=== PATIENT | female | born 1975 | race Caucasian/White ===

== ENCOUNTER 2019-05-16 08:24 | Outpatient (CLI) | payer BC, MEDICAID, SELFPAY ==
--- NOTE | 2019-05-16 11:40 | DI.MRI_ITS ---
EXAM: MR LOWER JOINT RT WO CLINICAL HISTORY: TRAUMATIC DISLOCATION OF RT JOSE S83.004A. TECHNIQUE: Multiplanar multisequence MRI was performed. COMPARISON: CR KNEE R 3V from 05/02/2019 from [facility] FINDINGS: A large joint effusion is seen. No fracture or bone contusion is seen. The cruciate ligaments, me dial collateral ligament, extensor mechanism and patellar retinacula appear intact. There is tear of the lateral meniscus. The posterior horn is flipped anterior to the anterior horn, consistent with a bucket-handle type tear. There is edema around the lateral collateral ligaments but no evidence o f a focal tear. The medial meniscus shows horizontal, linear increased signal in the posterior horn. There is cartilage thinning over the medial femoral condyle and patellar apex. There is a small fo donovan cartilage defect at the lateral femoral condyle which extends down to bone. IMPRESSION: Bucket-handle type tear of the lateral meniscus with posterior horn flipped anteriorly. Horizontal t ear of the posterior horn of the medial meniscus. Lateral collateral ligament sprain.
== END 2019-05-16 08:44 ==
PROVIDERS: PCP Family Medicine; Visit Provider Physician Assistant
DX: S83.251A Bucket-handle tear of lateral meniscus, current injury, right knee, initial encounter (principal); S83.241A Other tear of medial meniscus, current injury, right knee, initial encounter; S83.421A Sprain of lateral collateral ligament of right knee, initial encounter; S83.004A Unspecified dislocation of right patella, initial encounter
CPT/HCPCS: 73721

== ENCOUNTER 2020-02-03 23:12 | Outpatient (CLI) | payer BC, MEDICAID, SELFPAY ==
--- NOTE | 2020-02-03 10:32 | DI.RAD_ITS ---
EXAM: XR ANKLE RT COMPLETE CLINICAL HISTORY: right ankle pain M25.7-571 PAIN RT ANKLE AND JOINTS OF RT FOOT TECHNIQUE: COMPARISON: No exams were available for comparison FINDINGS: Three views were obtained. The ankle mortise appears well maintained. No bony or soft tissue abnorm ality seen apart from minimal degenerative changes of the joints of the. IMPRESSION: RADIATION DOSE DELIVERED: Total DLP
== END 2020-02-03 23:32 ==
PROVIDERS: Visit Provider Nurse Practitioner Family
DX: M25.571 Pain in right ankle and joints of right foot (principal)
CPT/HCPCS: 73610

== ENCOUNTER 2020-04-07 03:42 | Outpatient (CLI) | payer BC, MEDICAID, SELFPAY ==
[2020-04-07 15:41] LABS: ALT 24 U/L (14-59); AST 16 U/L (15-37); Alkaline Phosphatase 82 U/L (46-116); Anion Gap 10.6 mmol/L (3-11); BUN 13 mg/dL (7-18); Bilirubin, Total 0.4 mg/dL (0.2-1.0); CO2 27.4 mmol/L (21.0-32.0); CREATININE 0.91 mg/dL (0.55-1.02); Calcium 9.5 mg/dL (8.5-10.1); Chloride 101 mmol/L (98-107); Glucose 87 mg/dL (74-106); Potassium 4.2 mmol/L (3.5-5.1); Sodium 139 mmol/L (136-145); Total Protein 7.9 g/dL (6.4-8.2)
== END 2020-04-07 04:02 ==
DX: Z00.00 Encounter for general adult medical examination without abnormal findings (principal)
CPT/HCPCS: 36415; 80053

== ENCOUNTER 2020-10-22 09:20 | Outpatient (CLI) | payer BC, MEDICAID, SELFPAY ==
--- NOTE | 2020-10-22 09:00 | DI.RAD_ITS ---
Exam(s) XR KNEE RT 4V AP,LAT,[place],PAT EXAM: XR KNEE RT 4V AP,LAT,[place],PAT CLINICAL HISTORY: RIGHT KNEE PAIN. TECHNIQUE: 2D digital imaging was performed. COMPARISON: CR CR KNEE R 3V from 05/02/2019 CR CR KNEE R 3V from 05/02/2019 MR MR LOWER JOINT RT WO from 05/16/2019 MR MR LOWER JOINT RT WO from 05/16/2019 CR XR ANKLE RT COMPLETE from 02/03/2020 CR XR ANKLE RT COMPLETE from 02/03/2020 FINDINGS: BONES: No acute fracture is present. No bony destructive lesion is seen. The bones appear osteopenic . There is a lucency in the lateral femoral condyle which could represent an osteochondral defect ve rsus degenerative subchondral cyst. JOINTS: There is moderate to severe narrowing of both medial and lateral femoral tibial joints. This has significantly progressed when compared with the previous exam. There is also moderate narrowing of the patellofemoral joint which shows lateral spurring and lateral subluxation.. A joint effusion is seen. IMPRESSION: Moderate to severe degenerative changes of both femoral tibial joints with progression compared with the previous exam. Question of an osteochondral defect versus degenerative subchondral cysts of the lateral femoral condyle. DATA REPOSITORY: RADIATION DOSE DELIVERED:
== END 2020-10-22 09:21 | disposition home or self-care (01) ==
PROVIDERS: Visit Provider Student in an Organized Health Care Education/Training Program
DX: M17.11 Unilateral primary osteoarthritis, right knee (principal)
CPT/HCPCS: 73564

== ENCOUNTER 2020-10-22 11:33 | Outpatient (REF) | payer BC, MEDICAID, SELFPAY ==
[2020-10-22 12:25] LABS: Clarity Cloudy; Mononuclear Cells 16 %; Nucleated Cells 41970 uL (0); Polynuclear Cells 84 %
== END 2020-10-22 11:34 | disposition home or self-care (01) ==
LOC: LBN 11:33
PROVIDERS: Visit Provider Student in an Organized Health Care Education/Training Program
DX: M25.461 Effusion, right knee (principal); M25.561 Pain in right knee; M17.11 Unilateral primary osteoarthritis, right knee
CPT/HCPCS: 87070; 87205; 89051

== ENCOUNTER 2020-11-10 14:41 | Outpatient (CLI) | payer BC, MEDICAID, SELFPAY ==
--- NOTE | 2020-11-10 13:32 | DI.MRI_ITS ---
Exam(s) MR LOWER JOINT RT WO EXAM: MR LOWER JOINT RT WO CLINICAL HISTORY: m25.569 R knee pain and m25.461 effusion,?osteonecrosis of knee TECHNIQUE: Multiplanar multisequence MRI of the knee was performed. COMPARISON: MR MR LOWER JOINT RT WO from 05/16/2019 MR MR LOWER JOINT RT WO from 05/16/2019. There has apparently been interval surgery. Recent x-rays 6 turning 521 reviewed FINDINGS: EFFUSION: There is a moderate-large joint effusion with prominent abnormal synovial thickening consis tent with diffuse synovitis, significantly increased from the prior MRI scan of April 2019. There is no prominent Kumar's cyst in the popliteal fossa. There is a lymph node in the popliteal fossa wh ich measures 1.6 by 0.6 cm. Probably reactive. MARROW:There no fracture lines but there is prominent subarticular bone edema in both medial lateral femoral condyles as well as in medial and lateral aspect of the tibial plateau. There is also bone e emi in the patella. There is sparing of the fibular head and neck. PATELLOFEMORAL COMPARTMENT: The quadriceps tendon is intact. The patellar ligament is intact. There is a high-grade thinning of the retropatellar cartilage which has further progressed from the p rior study of April 2019. There is a small focus of subarticular signal abnormality in the posteri or patella over the lateral facet. No unstable osteochondral defect at this level. Thereis partial tearing of the lateral patellar retinaculum adjacent to the patella, not previously present. CRUCIATE LIGAMENTS: The anterior cruciate ligament is intact.The posterior cruciate ligament is intac t. MEDIAL COMPARTMENT/MEDIAL MENISCUS: Complex tear of the body-posterior horn of the medial meniscus. There is outward extrusion of the medial meniscus now evident.. There is diffuse high-grade cartilage loss over the entire medial femoral condyle.There is subarticul ar edema throughout the medial femoral condyle and area of subarticular signal abnormality measuring 1.5 cm wide by 2 cm AP by 0.6 cm deep suspicious for developing osteochondral defect-osteo necrosis. MEDIAL COLLATERAL LIGAMENT: Fluid signal is evident along the MCL consistent with sprain but no high- grade tear of this structure evident. LATERAL COMPARTMENT/LATERAL MENISCUS: Complex tear of the lateral meniscus involving both anterior an d posterior horns none also with some extrusion outwards.There is high-grade cartilage loss over the lateral femoral condyle in tire articular surface. Abundant subarticular edema in the lateral femora l condyle. There is a prominent area of subarticular signal abnormality the weight-bearing surface o f the lateral femoral condyle measuring 1.5 cm wide by 2 cm AP x 1.5 cm deep consistent with developi ng osteochondral defect. LATERAL COLLATERAL LIGAMENT COMPLEX: The fibular collateral ligament is intact. The biceps femoris t endon is intact.There is abnormal signal in the partially visualized popliteus muscle. Mild fluid in its tendon sheath. No tendon tear. OTHER: There is a sliver of fluid anterior to the patella-probable mild bursitis. IMPRESSION: 1. Compared to the prior knee MRI April 2019 there has been significant deterioration. 2. There is now severe synovitis throughout the knee joint and severe tricompartmental cartilage loss with prominent subjacent marrow edema. Also subarticular areas in both femoral condyles consistent with developing osteonecrosis. 3. Attenuation and complex tearing of both medial and lateral menisci. 4. Sprain signal along the MCL but no high-grade MCL tear. 5. Increased abnormal signal in the popliteus muscle but no high-grade tear of its tendon and the ot her components of the lateral collateral ligament complex are intact. 6. The anterior and posterior cruciate ligaments are intact. DATA REPOSITORY:
--- NOTE | 2020-11-10 14:47 | DI.VRAD_ITS ---
PROCEDURE INFORMATION: Exam: MR Right Lower Extremity Joint Without Contrast, Knee Exam date and time: 11/10/2020 1:27 PM Age: 45 years old Clinical indication: Swelling or effusion of joint; Prior surgery; Surgery date: 6+ months; Surgery type: Surgery of right knee may 2019, mri comparison pre surgery from April 2019. ; Patient HX: Pain since surgery, swelling and severe pain, worsening pain in joint. Difficulty bearing weight. TECHNIQUE: Imaging protocol: MR of the Right lower extremity joint without contrast. Exam focused on the knee. COMPARISON: CR XR KNEE RT 4V AP,LAT,GEORGIA,PAT 10/22/2020 9:28 AM FINDINGS: Bones and cartilage: Tricompartment high-grade chondromalacia. Subjacent marrow edema in the medial and lateral compartments. Cortical irregularity of the posterior weight-bearing surface of the lateral femoral condyle. Heterogeneous thickening and increased T2 signal of the lateral patellar retinaculum near its attachment to the patella, consistent with chronic partial tearing. Joint spaces: Right knee effusion with bulky synovial thickening, consistent with synovitis and joint debris. Medial meniscus: Complex tearing with fragmentation of the body and posterior horn of the medial meniscus. Body of the medial meniscus is peripherally extruded. Lateral meniscus: Complex tearing with fragmentation of the body and posterior horn of the lateral meniscus. Anterior cruciate ligament: Unremarkable. No tear. Posterior cruciate ligament: Unremarkable. No tear. Medial capsule and supporting structures: Mild edema along the deep and superficial fibers of the medial collateral ligament consistent with low-grade MCL sprain. Lateral capsule and supporting structures: Unremarkable. No tear. Extensor mechanism of knee: Unremarkable. No tear. Muscles: Popliteus muscle edema consistent with muscle strain Soft tissues: Sliver of fluid anterior to the patella with prepatellar subcutaneous edema and edema anterior to the patellar tendon. Findings are consistent with slight prepatellar bursitis. Tiny popliteal cyst. Prominent lymph node in the popliteal fossa measuring approximately 1.8 cm, consistent with reactive lymphadenopathy. IMPRESSION: 1. Bulky synovial thickening with a moderate effusion and large amount of joint debris, consistent with severe synovitis 2. Complex tearing of the body and posterior horns of the medial and lateral menisci 3. Tricompartment high-grade chondromalacia with subjacent marrow edema 4. Low-grade MCL sprain 5. Slight prepatellar bursitis 6. Low-grade partial tearing lateral patellar retinaculum Dictated and Authenticated by: Cindy Garza MD. Ordering:ZAHRA Jones MD
== END 2020-11-10 15:01 ==
PROVIDERS: Visit Provider Student in an Organized Health Care Education/Training Program
DX: M25.461 Effusion, right knee (principal); S83.271A Complex tear of lateral meniscus, current injury, right knee, initial encounter; S83.231A Complex tear of medial meniscus, current injury, right knee, initial encounter; S83.411A Sprain of medial collateral ligament of right knee, initial encounter; M70.41 Prepatellar bursitis, right knee; S76.111A Strain of right quadriceps muscle, fascia and tendon, initial encounter; X58.XXXA Exposure to other specified factors, initial encounter
CPT/HCPCS: 73721

== ENCOUNTER 2020-11-22 01:52 | Outpatient (CLI) | payer BC, MEDICAID, SELFPAY ==
[2020-11-22 11:22] LABS: Source Nasal/Nares
[2020-11-22 16:06] LABS: COVID-19 PCR Negative (Negative)
== END 2020-11-22 01:53 | disposition home or self-care (01) ==
LOC: LBO 01:52
PROVIDERS: Visit Provider Student in an Organized Health Care Education/Training Program
DX: Z20.822 Contact with and (suspected) exposure to COVID-19 (principal); Z01.818 Encounter for other preprocedural examination
CPT/HCPCS: 87635

== ENCOUNTER 2020-11-23 10:48 | Day surgery (SDC) | payer BC, MEDICAID, SELFPAY ==
[2020-11-23] VITALS (9 sets, daily range): BP systolic 95–136; BP diastolic 41–74; PULSE 48–69; RESP 12–18; TEMP 36–36.7; O2SAT 96–100; BMI 32.6
[2020-11-23] MEDS: Celecoxib 200 MG CAP 400 MG PO (11:36)
[2020-11-23] MEDS: Gabapentin 300 MG CAP PO (11:36)
[2020-11-23] MEDS: Acetaminophen 500 MG TAB 1000 MG PO (11:36)
--- NOTE | 2020-11-23 11:54 | W.ANESPRE ---
General Info Date of Service Date Performed: 11/23/20 Height: 5 ft 8 in Weight: 97.5 kg Body Mass Index (BMI): 32.6 Surgical Procedure: Operation Date: 11/23/20 12:55 Proposed Procedures Side Surgeon p Knee Arthroscopy rt with synovectomy and debridement, synovial biopsy Right Robert Blake MD Meds Allergies and Home Medications Allergies Allergy/AdvReac Type Severity Reaction Status Date / Time Penicillins Allergy Severe Anaphylaxis Verified 11/23/20 11:15 gluten Allergy Intermediate Rash Verified 11/23/20 11:15 Seasonal Allergy Intermediate Uncoded 11/23/20 11:15 Home Medication Medication Instructions Recorded baclofen 10 mg tablet 10 mg PO QHS PRN #20 tab 03/03/20 acetaminophen 500 mg tablet 500 mg PO Q6H PRN 10/22/20 ibuprofen 200 mg tablet 200 mg PO Q6H PRN 10/22/20 turmeric 400 mg capsule 400 mg PO DAILY 10/22/20 Current Visit Medications: Current Medications Generic Name Dose Route Start Last Admin Trade Name Freq PRN Reason Stop Dose Admin Acetaminophen 1,000 mg 11/23/20 06:00 11/23/20 11:36 Acetaminophen 500 Mg Tab PO 11/23/20 16:00 1,000 mg PREOP KEYLA Administration Celecoxib 400 mg 11/23/20 06:00 11/23/20 11:36 Celecoxib 200 Mg Cap PO 11/23/20 16:00 400 mg PREOP KEYLA Administration Gabapentin 300 mg 11/23/20 06:00 11/23/20 11:36 Gabapentin 300 Mg Cap PO 11/23/20 16:00 300 mg PREOP KEYLA Administration Ringer's Solution 1,000 mls @ 80 mls/hr 11/23/20 06:00 IV 12/22/20 23:59 INFUSION KEYLA Clindamycin Phosphate/Dextrose 900 mg in 50 mls @ 50 mls/hr 11/23/20 06:00 Cleocin In D5w IVPB 11/23/20 16:00 PREOP KEYLA IV Miscellaneous Supplies 1 each 11/23/20 06:00 Iv Access IV 12/22/20 23:59 DIRECTED KEYLA Sodium Chloride 0 ml 11/23/20 06:00 Normal Saline Flush 10 Ml Syr IV 12/22/20 23:59 PRN PRN Sodium Chloride 0 ml 11/23/20 06:00 Normal Saline 10 Ml Vial IJ 12/22/20 23:59 DIRECTED PRN Sterile Water 0 ml 11/23/20 06:00 Water,Injection,Sterile 10 Ml Vial IJ 12/22/20 23:59 DIRECTED PRN PFSH Active Problems Active Problems: Problem Status Onset Code Effusion, right knee M25.461 Arthritis of right knee M17.11 Knee pain M25.569 Annual physical exam Z00.00 Increased body mass index (BMI) R63.8 Right ankle tendonitis M77.51 Medical History Medical History Annual physical exam Increased body mass index (BMI) Knee pain Right ankle tendonitis Surgical History Surgical History History of knee replacement History of surgical procedure on mouth tongue surgery History of tubal ligation Tobacco Smoking/Tobacco Use Status: Current every day Tobacco Type: cigarettes Alcohol Alcohol Intake: current (Holidays) Alcohol intake frequency: holidays/special occasions only Substance Use Substance use: Rarely Vital Signs and Lab Results Vital Signs Most Recent Vital Signs in EMR: Most Recent Vital Signs Temp Pulse Resp BP Pulse Ox 36.7 C 59 L 18 114/67 98 11/23/20 11:18 11/23/20 11:18 11/23/20 11:18 11/23/20 11:18 11/23/20 11:18 Lab Results Blood Type / Crossmatch: No Data to Display Complete Blood Count: No Data to Display Complete Metabolic Panel: No Data to Display Liver Function Panel: No Data to Display Coagulation Panel: No Data to Display Cardiac Panel: No Data to Display Arterial Blood Gas: No Data to Display Venous Blood Gas: No Data to Display Pancreas Panel: No Data to Display Thyroid Panel: No Data to Display Infectious Disease: Coronavirus (COVID-19)(PCR) Negative (Negative) 11/22/20 08:46 11/22/20 Coronavirus 2019 Source Nasal/Nares 11/22/20 08:46 11/22/20 Blood Cultures: No Data to Display Toxicology Panel: No Data to Display Panel: No Data to Display Anesthesia Assessment and Plan Anesthesia History Personal History: No History of Anesthesia Complications Family History: No Family History of Anesthesia Complications and Other Exercise Tolerance Exercise Tolerance: Metabolic Equivalents>4 Pertinent Negatives Pertinent Negatives: No Symptoms of GERD, No Major Cardiovascular Symptoms or Complaints, No Major Pulmonary Symptoms or Complaints and No History of CVA/TIA Cardiac & Pulmonary Exam Cardiac Exam: Normal S1/S2 Heart Sounds Pulmonary Exam: Clear Bilateral Breath Sounds Cardiac and Pulmonary Comment:: SMOKER /-1/2 ppd Airway Exam Known Difficult Airway: No Mallampati Class: 2 Mouth Opening: Normal (> 3cm) Thyromental Distance: Greater than 3 cm Neck Range of Motion: Full ROM Neck Circumference: Thick Teeth Condition: Normal Dentition and Removable Dentures/Plates Upper Airway Comments: Multiple teeth repaired, upper plate including #20, and#19 ASA Classification ASA Score: ASA 2 Emergency Case?: No NPO Status NPO Status: NPO Clears >2 hours, Solids >8 hours Status Status: Not Relevant due to Medical History Anesthesia Plan Resuscitation Status: Full Code Anesthesia Technique: General Anesthesia Airway Planned: LMA Monitors Used: Standard Monitors
[2020-11-23] MEDS: Lactated Ringers 1,000 ML 80 ML IV (11:55)
--- NOTE | 2020-11-23 12:41 | W.PREOPHP ---
Documented by User: ROHITH Houser 11/23/20 12:43 Date of service: 11/23/20 Assessment and Plan Assessment and plan (1) Effusion, right knee: Status: Acute Assessment and plan: Right knee arthroscopy. Details of surgery were discussed with patient as well as risks and pertinent anatomy. All questions were answered. Pertinent Surgical Information Patient denies history of hypertension, CVA, IA, angina, asthma, COPD, renal or liver disorders, hepatitis, bleeding disorders, diabetes, immune or thyroid disorders. No complications from anesthesia. Review of Systems Constitutional Constitutional: Denies fever(s) ENT Ears, Nose, Mouth, and Throat: Denies dizziness and Denies sore throat Cardiovascular Cardiovascular: Denies chest pain, Denies palpitations and Denies dyspnea Respiratory Respiratory: Denies cough and Denies dyspnea Gastrointestinal Gastrointestinal: Denies abdominal pain, Denies melena, Denies hematochezia, Denies diarrhea, Denies nausea and Denies vomiting Genitourinary Genitourinary: Denies hematuria and Denies dysuria Neurologic Neurologic: Denies dizziness Endocrine Endocrine: Denies palpitations [facility] Medical History Annual physical exam Increased body mass index (BMI) Knee pain Right ankle tendonitis Surgical History History of knee replacement History of surgical procedure on mouth tongue surgery History of tubal ligation Social History Smoking/Tobacco Use Status: Current every day Tobacco Type: cigarettes Smoking risk assessment performed?: Yes Alcohol Intake: current (Holidays) Alcohol Intake frequency: holidays/special occasions only Drug use: Rarely Current gender identity: female Do you feel safe at home: Yes Do you feel safe in your relationship?: Yes Meds Allergies and Home Medications Allergies Allergy/AdvReac Type Severity Reaction Status Date / Time Penicillins Allergy Severe Anaphylaxis Verified 11/23/20 11:15 gluten Allergy Intermediate Rash Verified 11/23/20 11:15 Seasonal Allergy Intermediate Uncoded 11/23/20 11:15 Home Medications Medication Instructions Recorded Confirmed Type baclofen 10 mg tablet 10 mg PO QHS PRN #20 tab 03/03/20 11/23/20 Rx turmeric 400 mg capsule 400 mg PO DAILY 10/22/20 11/23/20 History acetaminophen 1,000 mg PO Q8H PRN PRN #90 cap 11/23/20 Rx ibuprofen 600 mg PO TID PRN #30 tab 11/23/20 Rx Exam Const General: cooperative and no acute distress Orientation: alert and awake [facility] Head: normocephalic and atraumatic Eyes Conjunctivae: conjunctivae normal Sclera: sclerae normal Resp Effort & Inspection: normal respiratory effort Auscultation: clear to auscultation bilaterally and no wheezes Cardio Rate: regular rate Rhythm: regular rhythm Heart Sounds: S1 normal, S2 normal and no murmurs Results Last Vital Signs Temp 98.1 F 11/23/20 11:18 Pulse 59 L 11/23/20 11:18 Resp 18 11/23/20 11:18 BP 114/67 11/23/20 11:18 Pulse Ox 98 11/23/20 11:18 Documented by User: Robert Blake MD 11/23/20 13:22 Assessment and Plan Assessment and plan (1) Inflammation of joint of right knee: Status: Acute Assessment and plan: Aicha is a 45-year-old who is status post right knee arthroscopy with persistent pain, limited motion, and inflammatory changes throughout the knee with interval destruction of the cartilage surfaces. I am quite concerned about an indolent infection. Her cell count was notably elevated although did not have growth in the culture. The MRI shows extensive cartilage degeneration since the previous MRI 1 year ago with dense inflammatory changes throughout the knee which is concerning for an inflammatory or infectious process. Therefore, I recommended that we proceed with knee arthroscopy for synovectomy and biopsy. I would take fluid and tissue samples to send to the lab for further analysis as well as for Synovasure comprehensive analysis to rule out any infection. At the time of the arthroscopy we can debride and debulk some of the inflammation within the knee. Ultimately, knee replacement will be the next step given the cartilage wasting seen on the MRI. However, there is important that we fully rule out any infectious process within the knee. I reviewed the risk of the procedure to include bleeding, infection, pain, stiffness, damage to nerves and vessels, damage to muscles and tendons, continued symptoms, need for repeat procedures. Despite these risks, she elects to proceed. History of Present Illness History of Present Illness Chief Complaint: Right Knee Inflammatory Arthritis Narrative: Aicha is a 45-year-old female who I saw previously in the office. Please reference that office note for complete details of her clinical history. In short, she underwent a knee arthroscopy with meniscal intervention with Dr. Martínez at the [facility]. She had some initial improvements but they were short-lived as she developed significant pain and swelling and limited motion. When I saw her in the office she had a diffusely swollen knee which was painful to almost all range of motion with notable restriction of motion and difficulty with weightbearing. Aspiration at the time did show an elevated white cell count within the knee but no culture growth. MRI confirmed significant inflammatory disease throughout the knee with interval destruction of the cartilage surfaces of the knee joint in all 3 compartments. She continues have pain and disability about the right knee with notable swelling and restricted motion. She denies any fevers or chills. She denies any sick contacts. She has no chest pain or shortness of breath. [facility] Medical History Annual physical exam Increased body mass index (BMI) Knee pain Right ankle tendonitis Surgical History History of knee replacement History of surgical procedure on mouth tongue surgery History of tubal ligation Social History Smoking/Tobacco Use Status: Current every day Tobacco Type: cigarettes Smoking risk assessment performed?: Yes Alcohol Intake: current (Holidays) Alcohol Intake frequency: holidays/special occasions only Drug use: Rarely Current gender identity: female Do you feel safe at home: Yes Do you feel safe in your relationship?: Yes Meds Allergies and Home Medications Allergies Allergy/AdvReac Type Severity Reaction Status Date / Time Penicillins Allergy Severe Anaphylaxis Verified 11/23/20 11:15 gluten Allergy Intermediate Rash Verified 11/23/20 11:15 Seasonal Allergy Intermediate Uncoded 11/23/20 11:15 Home Medications Medication Instructions Recorded Confirmed Type baclofen 10 mg tablet 10 mg PO QHS PRN #20 tab 03/03/20 11/23/20 Rx turmeric 400 mg capsule 400 mg PO DAILY 10/22/20 11/23/20 History acetaminophen 1,000 mg PO Q8H PRN PRN #90 cap 11/23/20 Rx ibuprofen 600 mg PO TID PRN #30 tab 11/23/20 Rx
--- NOTE | 2020-11-23 12:53 | W.PM.DSUDISC ---
Documented by User: ROHITH Houser 11/23/20 12:56 Discharge Plan Disposition Patient Disposition: HOME Condition: Good Discharge Details Reason For Visit: Right Knee Arthroscopy Attending Provider: Robert Blake Primary Care Provider: Adelita Munguia Home Meds and New Rx's Prescriptions: New acetaminophen 500 mg capsule 1,000 mg PO Q8H PRN PRNQty: 90 RF: 0 ibuprofen 600 mg tablet 600 mg PO TID PRN (Reason: pain) Qty: 30 RF: 0 Continued baclofen 10 mg tablet 10 mg PO QHS PRN (Reason: muscle spasm) Qty: 20 RF: 0 turmeric 400 mg capsule 400 mg PO DAILY RF: 0 Discontinued acetaminophen [Tylenol Extra Strength] 500 mg tablet 500 mg PO Q6H PRNRF: 0 ibuprofen 200 mg tablet 200 mg PO Q6H PRNRF: 0 Discharge Instructions Stand Alone Forms: Lou Knee Arthroscopy Referrals: Robert Blake MD [ [facility] STAFF PHYSICIAN] - 11/29/20 2:30 pm Equipment/Supplies: Partial Weight Bearing Crutches Activity:: Activity as Tolerated Remove Dressings/Wound Care:: 72 hours Shower/Bathe:: 72 hours Diet:: As Tolerated Discharge Orders Discharge Orders: Discharge Order (Routine); Ordered 11/23/20 Ordered By: Andrew Krause DS: Diagnosis Discharge Diagnosis (1) Effusion, right knee: Status: Acute Documented by User: Robert Blake MD 11/23/20 14:52 Discharge Plan Disposition Patient Disposition: HOME Condition: Good Discharge Details Reason For Visit: Right Knee Arthroscopy Attending Provider: Robert Blake Primary Care Provider: Adelita Munguia Home Meds and New Rx's Prescriptions: New acetaminophen 500 mg capsule 1,000 mg PO Q8H PRN PRNQty: 90 RF: 0 ibuprofen 600 mg tablet 600 mg PO TID PRN (Reason: pain) Qty: 30 RF: 0 Continued baclofen 10 mg tablet 10 mg PO QHS PRN (Reason: muscle spasm) Qty: 20 RF: 0 turmeric 400 mg capsule 400 mg PO DAILY RF: 0 Discontinued acetaminophen [Tylenol Extra Strength] 500 mg tablet 500 mg PO Q6H PRNRF: 0 ibuprofen 200 mg tablet 200 mg PO Q6H PRNRF: 0 Discharge Instructions Stand Alone Forms: Lou Knee Arthroscopy Referrals: Robert Blake MD [ [facility] STAFF PHYSICIAN] - 11/29/20 2:30 pm Equipment/Supplies: Partial Weight Bearing Crutches Activity:: Activity as Tolerated Remove Dressings/Wound Care:: 72 hours Shower/Bathe:: 72 hours Diet:: As Tolerated Discharge Orders Discharge Orders: Discharge Order (Routine); Ordered 11/23/20 Ordered By: Andrew Krause
[2020-11-23] MEDS: CLINDAMYCIN 900 MG/50 ML BAG 50 MG IVPB (13:36)
--- NOTE | 2020-11-23 14:05 | SYNOVIUM_PTH ---
PATIENT: Aicha Perez LOC: [facility] U#:[id number] AGE/SX: 45/F ROOM: RE11/23/[address]: Robert Blake MD : 1975 BED: DIS: 11/23/2020 SPEC #: [id number] RECD: 11/23/20 17:03 STATUS: CORNELIO SHEPPARD #: [id number] FAUZIA: 11/23/20 14:[address]: Robert Blake DEPT: Surgical Specimen RECD BY: Adela Cisneros ENTERED: 11/23/20 17:04 SP TYPE: SYNOVIUM OTHR DR: Adelita Munguia APRN Tissues: 1 - SYNOVIUM/IAL Procedures: GROSS AND MICRO LEVEL 4 Comments: [id number]
[2020-11-23] MEDS: Bupivacaine 0.5% Pres-Free 30 ML VIAL (14:25)
[2020-11-23] MEDS: fentaNYL 100 MCG/2 ML VIAL IVP (14:59)
[2020-11-23] MEDS: Normal Saline Flush 10 ML SYR IV (15:01)
[2020-11-23] MEDS: Ketorolac 30 MG/ML VIAL 15 MG IVP (15:15)
--- NOTE | 2020-11-23 16:09 | W.ANESPOSTOP ---
Postoperative Evaluation Date, Time and Location Date Performed: 11/23/20 Time Performed: 16:09 Patient Location: Day Surgery Unit Vital Signs Most Recent Imported Vital Signs: Most Recent Vital Signs Temp Pulse Resp BP Pulse Ox 36.2 C L 57 L 15 135/64 99 11/23/20 15:30 11/23/20 15:30 11/23/20 15:30 11/23/20 15:30 11/23/20 15:30 Pain Score Most Recent Pain Score: Most Recent Pain Score Pain Level 2 11/23/20 15:30 Assessment Mental Status: Awake (Alert & Oriented to Patient Baseline) Airway and Respiratory Function: Patent airway with normal (patient baseline) respiratory exam Cardiovascular Function: Hemodynamically Stable Hydration Status: Adequately Hydrated Nausea & Vomiting: No Nausea or Vomiting Pain: Pt. Denies Any Pain Peripheral Nerve Block: Patient did not receive a nerve block
--- NOTE | 2020-11-23 20:14 | W.PM.OP ---
Date of service: 11/23/20 Time of Service: 14:39 Operative Note Operative Note DATE OF PROCEDURE: 11/23/20 PRE-OP DIAGNOSIS: Right knee inflammatory disease POST-OP DIAGNOSIS: same PROCEDURE: Right knee arthroscopic synovectomy of 3 compartments with synovial biopsy SURGEON: Robert Blake ANESTHESIA TYPE: General LMA/ETT Refer to Anesthesia Record ESTIMATED BLOOD LOSS: 5 PATHOLOGY: none sent TOURNIQUET TIME: 0 COMPLICATIONS: None Patient was transported to: PACU Patient's condition: stable Indications: I have seen Aicha in clinic for a painful and swollen knee following a knee arthroscopy. . This was confirmed based on MRI and exam findings. Nonoperative measures were exhausted but disability and pain persisted. I discussed knee arthroscopy with meniscal intervention with the patient. I reviewed the risks of the procedure to include, but not limited to, bleeding, infection, pain, stiffness, damage to nerves or vessels, recurrence, blood clot. Despite these risks, the patient elected to proceed. Findings: A diagnostic arthroscopy was performed with the following findings: Throughout the knee there was dense inflammatory tissue seen throughout. There was voluminous amounts of hypertrophic tissue seen throughout all compartments. This tissue was interposed between cartilage surfaces, within the notch of the knee, and surrounding the gutters and in the suprapatellar space. This tissue was inflamed and thickened. I was able to aspirate 15 cc of thickened and cloudy joint fluid with particulate which was sent for specialized analysis at the [facility] lab. There were fragments of the medial and lateral meniscus seen interposed within the joint space and global chondromalacia throughout all 3 compartments, diffuse grade 3/4. Procedure Description: Aicha was greeted in the preoperative holding area where the correct side was identified and marked. The consent was reviewed with the patient and signed. The history and physical was updated. All questions were answered. She was taken back to the operating room. The patient was placed into the supine position on the operating room table. A nonsterile tourniquet was placed high onto the leg but not used. All bony prominences were well padded. Prophylactic antibiotics in the form of cefazolin were administered. The right leg was then prepped with Chloraprep and draped in a standard fashion with stockinette and extremity drape. A timeout to confirm correct identity, side and site, procedure, allergies, anesthesia, and medical concerns was performed. The leg was placed into a pneumatic leg shetty, [id number]. I then aspirated the knee of approximately 15 cc of thickened and cloudy joint fluid with particulate. This was sent in 3 separate tubes to the [facility] lab for complete analysis to rule out infection. A standard lateral portal was made at the lateral border of the patella tendon in line with the inferior pole of the patella, soft spot. The skin and deep tissue was incised sharply and the blunt trochar was inserted atraumatically. A diagnostic arthroscopy was performed and the findings are listed above. In general, there was copious amounts of hypertrophic inflammatory tissue seen throughout the knee. This made visualization challenging. The villonodular appearance of this tissue was concerning for infection but at least severe inflammatory disease. A superolateral portal was then established using a spinal needle for localization. Using a shaver I debrided tissue for visualization purposes. This hypertrophic inflammatory tissue was seen interposed within the patellofemoral joint, around the patella and filling of a large portion of the suprapatellar space. Additionally, this tissue was seen during the gutter as well as interposed within the medial lateral compartments. Using the shaver continue to work through debriding this tissue down cells able to appreciate some regular knee anatomy. Exposing the distal femur showed significant chondromalacia of the distal end of the femur, grade 3 and 4. There were areas of exposed bone. The debridement was carried out anteriorly where the medial compartments unable to be visualized and so I debrided soft tissue out of the way. Once the synovium and inflammatory tissue was debrided I was able to gain entry into the medial compartment. However, working within the medial compartment was quite challenging. There was fragments of the medial meniscus seen floating and loosely attached to its base. There is inflammatory tissue seen protruding from the posterior capsule. I established a medial working portal using a spinal needle and from this portal continue with debridement within the medial compartment. I debrided down any torn meniscal tissue to a stable base. However, it was difficult to fully ascertain whether there is still remnant meniscal tears or not. The cartilage surface in the medial compartment showed diffuse grade III chondromalacia. There is also notable inflammatory change seen within the notch with partial tearing of the ACL and the synovium within the notch which was debrided down. Continuation to the lateral compartment showed similar findings of dense hypertrophic tissue interposed between the femur and the tibia. This tissue was once again debrided down with the shaver to expose the cartilage surfaces which once again demonstrated grade III chondromalacia at minimum. There is also disruption of the meniscus with a large meniscal fragment seen in the posterior portion of the knee which were debrided down. Once again, like the medial side, there was notable inflammatory tissue seen protruding from the posterior capsule which was debrided but is scared visualization of the meniscus. During this process I took samples of the synovium to send off to the lab both for pathology analysis as well as culture. The arthroscope was brought back into the suprapatellar pouch and the leg was in full extension. The knee was thoroughly irrigated with the arthroscopic fluid on high flow and pressure. Inflow was stopped and excess fluid was removed. The wounds were closed with 4-0 Nylon. They were dressed with Xeroform, 4x4 gauze, ABD pad, Kerlix and an RAGHU wrap. A cryo-cuff was applied. The patient tolerated the procedure well and was returned to the Same Day Surgery area in a stable condition suffering no known complication.
== END 2020-11-23 17:05 | disposition home or self-care (01) ==
PROVIDERS: Visit Provider Student in an Organized Health Care Education/Training Program
PROC: (CPT 29870; principal; 2020-11-23 12:45)
DX: M65.861 Other synovitis and tenosynovitis, right lower leg (principal); M94.261 Chondromalacia, right knee; M23.261 Derangement of other lateral meniscus due to old tear or injury, right knee; M23.231 Derangement of other medial meniscus due to old tear or injury, right knee; M25.461 Effusion, right knee
CPT/HCPCS: 29876; 29880; 20610; 87077; 88305; 87070; 87075; 87186; 87205; J1885; J2001; J2250; J2405; J3010

== ENCOUNTER 2020-12-03 02:43 | Outpatient (CLI) | payer BC, MEDICAID, SELFPAY ==
[2020-12-03 11:41] LABS: Abs Immature Grans 0.08 10^3/uL (0.0-0.06); Absolute Neutrophil Count 10.09 10^3/uL (1.2-6.7); Basophils % 0.7; Eosinophils % 1.7; HCT 40.3 % (36.0-46.0); HGB 12.8 g/dL (11.2-15.7); Immature Grans % 0.6; Lymphocytes % 21.4; MCH 28.1 pg (27.0-33.0); MCHC 31.8 % (32.0-36.0); MCV 88.6 fL (80-95); MPV 9.2 fL (8.0-11.0); Monocytes % 5.9; Neutrophils % 69.7; Nucleated RBC 0 %; Platelet Count 455 10^3/uL (130-400); RBC 4.55 10^6/uL (3.93-5.22); RDW 14.3 % (11.7-14.6); RDW-SD 45.9 fL; WBC 14.47 10^3/uL (4.4-10.8)
[2020-12-03 11:50] LABS: ESR 65 mm/hr (0-20)
[2020-12-03 11:51] LABS: Absolute Eosinophil Count 0.25 10^3/uL (0.0-0.7); Absolute Monocyte Count 0.85 10^3/uL (0.1-0.8)
[2020-12-03 12:41] LABS: C-Reactive Protein 0.74 mg/dL (0.0-0.3)
[2020-12-03 21:41] LABS: Rheumatoid Factor 159.9 IU/mL (<12.0)
[2020-12-06 08:49] LABS: Cyclic Citrullinated Peptide <2.5 U/mL (<5.0)
[2020-12-06 10:59] LABS: Lyme Ab w Rflx to Lyme Confirm Negative (Negative)
[2020-12-06 14:59] LABS: ANA Interpretation Positive (Negative); ANA Titer Pattern 1:160 Speckled
[2020-12-06 18:26] LABS: Anaplasma phagocytophilum Negative (Negative); B. miyamotoi PCR Negative (Negative); Babesia divergens/MO-1 Negative (Negative); Babesia duncani Negative (Negative); Babesia microti Negative (Negative); Ehrlichia chaffeensis Negative (Negative); Ehrlichia ewingii/canis Negative (Negative); Ehrlichia muris eauclairensis Negative (Negative)
== END 2020-12-03 02:44 | disposition home or self-care (01) ==
LOC: LBO 02:43
PROVIDERS: Visit Provider Student in an Organized Health Care Education/Training Program
DX: M13.161 Monoarthritis, not elsewhere classified, right knee (principal)
CPT/HCPCS: 36415; 85652; 86200; 87798; 85025; 86038; 86140; 86431; 86618

== ENCOUNTER 2020-12-16 09:27 | Outpatient (CLI) | payer BC, MEDICAID, SELFPAY ==
[2020-12-16 11:26] LABS: ALT 22 U/L (14-59); AST 12 U/L (15-37); Albumin 3.8 g/dL (3.4-5.0); Alkaline Phosphatase 84 U/L (46-116); Anion Gap 12.2 mmol/L (3-11); BUN 13 mg/dL (7-18); Bilirubin, Total 0.4 mg/dL (0.2-1.0); CO2 23.8 mmol/L (21.0-32.0); CREATININE 0.7 mg/dL (0.55-1.02); Calcium 9.7 mg/dL (8.5-10.1); Chloride 106 mmol/L (98-107); Creatine Kinase 44 U/L (26-192); Glucose 91 mg/dL (74-106); Potassium 4.6 mmol/L (3.5-5.1); Sodium 142 mmol/L (136-145); Total Protein 7.8 g/dL (6.4-8.2)
== END 2020-12-16 09:28 | disposition home or self-care (01) ==
LOC: LBO 09:29
PROVIDERS: Visit Provider Internal Medicine Infectious Disease
DX: M00.061 Staphylococcal arthritis, right knee (principal); Z79.2 Long term (current) use of antibiotics
CPT/HCPCS: 36415; 80053; 82550

== ENCOUNTER 2020-12-20 15:17 | Outpatient (REF) | payer BC, MEDICAID, SELFPAY ==
[2020-12-20 12:54] LABS: ALT 20 U/L (14-59); AST 14 U/L (15-37); Albumin 3.4 g/dL (3.4-5.0); Alkaline Phosphatase 79 U/L (46-116); BUN 9 mg/dL (7-18); Bilirubin, Total 0.3 mg/dL (0.2-1.0); C-Reactive Protein 1.55 mg/dL (0.0-0.3); CREATININE 0.7 mg/dL (0.55-1.02); Chloride 106 mmol/L (98-107); Creatine Kinase 47 U/L (26-192); Glucose 75 mg/dL (74-106); Potassium 4.2 mmol/L (3.5-5.1); Sodium 141 mmol/L (136-145); Total Protein 7.1 g/dL (6.4-8.2)
[2020-12-20 13:00] LABS: Abs Immature Grans 0.07 10^3/uL (0.0-0.06); Absolute Eosinophil Count 0.29 10^3/uL (0.0-0.7); Absolute Lymphocyte Count 3.27 10^3/uL (1.2-3.4); Absolute Monocyte Count 0.91 10^3/uL (0.1-0.8); Absolute Neutrophil Count 10.06 10^3/uL (1.2-6.7); Basophils % 0.7; HCT 39.3 % (36.0-46.0); HGB 12.2 g/dL (11.2-15.7); Immature Grans % 0.5; Lymphocytes % 22.2; MCH 28.3 pg (27.0-33.0); MCV 91.2 fL (80-95); MPV 10.2 fL (8.0-11.0); Monocytes % 6.2; Neutrophils % 68.4; Nucleated RBC 0 %; Platelet Count 441 10^3/uL (130-400); RBC 4.31 10^6/uL (3.93-5.22); RDW 13.9 % (11.7-14.6); RDW-SD 47.5 fL; WBC 14.71 10^3/uL (4.4-10.8)
== END 2020-12-20 15:18 | disposition home or self-care (01) ==
LOC: LBN 15:17
PROVIDERS: Visit Provider Internal Medicine Infectious Disease
DX: M00.061 Staphylococcal arthritis, right knee (principal); Z79.2 Long term (current) use of antibiotics
CPT/HCPCS: 80053; 82550; 85025; 86140

== ENCOUNTER 2020-12-27 21:23 | Outpatient (REF) | payer BC, MEDICAID, SELFPAY ==
[2020-12-27 17:42] LABS: ALT 21 U/L (14-59); AST 12 U/L (15-37); Albumin 3.4 g/dL (3.4-5.0); Alkaline Phosphatase 85 U/L (46-116); BUN 16 mg/dL (7-18); Bilirubin, Total 0.2 mg/dL (0.2-1.0); C-Reactive Protein 2.03 mg/dL (0.0-0.3); CREATININE 0.7 mg/dL (0.55-1.02); Chloride 105 mmol/L (98-107); Creatine Kinase 56 U/L (26-192); Glucose 81 mg/dL (74-106); Potassium 4.3 mmol/L (3.5-5.1); Sodium 139 mmol/L (136-145); Total Protein 7.1 g/dL (6.4-8.2)
[2020-12-27 17:59] LABS: Abs Immature Grans 0.05 10^3/uL (0.0-0.06); Absolute Basophil Count 0.11 10^3/uL (0.0-0.2); Absolute Eosinophil Count 0.24 10^3/uL (0.0-0.7); Basophils % 0.7; Eosinophils % 1.6; HCT 38.7 % (36.0-46.0); Immature Grans % 0.3; Lymphocytes % 22.7; MCH 27.9 pg (27.0-33.0); MPV 10.2 fL (8.0-11.0); Monocytes % 6.4; Neutrophils % 68.3; Nucleated RBC 0 %; Platelet Count 470 10^3/uL (130-400); RDW 13.8 % (11.7-14.6); RDW-SD 45.8 fL; WBC 15.05 10^3/uL (4.4-10.8)
[2020-12-27 18:10] LABS: Absolute Lymphocyte Count 3.42 10^3/uL (1.2-3.4); Absolute Monocyte Count 0.96 10^3/uL (0.1-0.8); Absolute Neutrophil Count 10.28 10^3/uL (1.2-6.7)
== END 2020-12-27 21:24 | disposition home or self-care (01) ==
LOC: LBN 21:23
PROVIDERS: Visit Provider Internal Medicine Infectious Disease
DX: M00.061 Staphylococcal arthritis, right knee (principal); B95.62 Methicillin resistant Staphylococcus aureus infection as the cause of diseases classified elsewhere; Z79.2 Long term (current) use of antibiotics
CPT/HCPCS: 80053; 82550; 85025; 86140

== ENCOUNTER 2021-01-03 12:57 | Outpatient (REF) | payer BC, MEDICAID, SELFPAY ==
[2021-01-03 13:26] LABS: Abs Immature Grans 0.08 10^3/uL (0.0-0.06); Absolute Basophil Count 0.12 10^3/uL (0.0-0.2); Absolute Eosinophil Count 0.29 10^3/uL (0.0-0.7); Absolute Monocyte Count 0.92 10^3/uL (0.1-0.8); Basophils % 0.8; Eosinophils % 1.9; HGB 11.9 g/dL (11.2-15.7); Immature Grans % 0.5; Lymphocytes % 23.4; MCH 28.7 pg (27.0-33.0); MCHC 31.3 % (32.0-36.0); MCV 91.6 fL (80-95); MPV 9.5 fL (8.0-11.0); Monocytes % 6.1; Neutrophils % 67.3; Nucleated RBC 0 %; Platelet Count 467 10^3/uL (130-400); RBC 4.15 10^6/uL (3.93-5.22); RDW 13.3 % (11.7-14.6); RDW-SD 45.1 fL
[2021-01-03 13:31] LABS: ALT 24 U/L (14-59); AST 14 U/L (15-37); Albumin 3.3 g/dL (3.4-5.0); Alkaline Phosphatase 90 U/L (46-116); Anion Gap 8.5 mmol/L (3-11); BUN 9 mg/dL (7-18); Bilirubin, Total 0.2 mg/dL (0.2-1.0); C-Reactive Protein 1.64 mg/dL (0.0-0.3); CO2 26.5 mmol/L (21.0-32.0); CREATININE 0.7 mg/dL (0.55-1.02); Calcium 9.1 mg/dL (8.5-10.1); Chloride 104 mmol/L (98-107); Glucose 80 mg/dL (74-106); Potassium 4.1 mmol/L (3.5-5.1); Sodium 139 mmol/L (136-145); Total Protein 7.1 g/dL (6.4-8.2)
[2021-01-03 13:34] LABS: Absolute Lymphocyte Count 3.53 10^3/uL (1.2-3.4); Absolute Neutrophil Count 10.16 10^3/uL (1.2-6.7)
[2021-01-04 17:52] LABS: Creatine Kinase 118 U/L (26-192)
== END 2021-01-03 12:58 | disposition home or self-care (01) ==
LOC: LBN 12:57
PROVIDERS: Visit Provider Internal Medicine Infectious Disease
DX: B95.62 Methicillin resistant Staphylococcus aureus infection as the cause of diseases classified elsewhere (principal); Z79.2 Long term (current) use of antibiotics
CPT/HCPCS: 80053; 82550; 85025; 86140

== ENCOUNTER 2021-01-10 14:32 | Outpatient (REF) | payer BC, MEDICAID, SELFPAY ==
[2021-01-10 15:19] LABS: Abs Immature Grans 0.06 10^3/uL (0.0-0.06); Absolute Basophil Count 0.09 10^3/uL (0.0-0.2); Absolute Eosinophil Count 0.23 10^3/uL (0.0-0.7); Absolute Lymphocyte Count 2.52 10^3/uL (1.2-3.4); Absolute Monocyte Count 0.77 10^3/uL (0.1-0.8); Absolute Neutrophil Count 10.67 10^3/uL (1.2-6.7); Basophils % 0.6; Eosinophils % 1.6; HCT 39.1 % (36.0-46.0); HGB 12.2 g/dL (11.2-15.7); Immature Grans % 0.4; Lymphocytes % 17.6; MCH 28.4 pg (27.0-33.0); MCHC 31.2 % (32.0-36.0); MCV 90.9 fL (80-95); Monocytes % 5.4; Neutrophils % 74.4; Nucleated RBC 0 %; Platelet Count 480 10^3/uL (130-400); RDW 13.3 % (11.7-14.6); RDW-SD 44.9 fL; WBC 14.34 10^3/uL (4.4-10.8)
[2021-01-10 16:24] LABS: ALT 30 U/L (14-59); AST 17 U/L (15-37); Albumin 3.4 g/dL (3.4-5.0); Alkaline Phosphatase 85 U/L (46-116); Anion Gap 9.7 mmol/L (3-11); BUN 18 mg/dL (7-18); Bilirubin, Total 0.3 mg/dL (0.2-1.0); C-Reactive Protein 1.55 mg/dL (0.0-0.3); CO2 25.3 mmol/L (21.0-32.0); CREATININE 0.7 mg/dL (0.55-1.02); Calcium 9.2 mg/dL (8.5-10.1); Chloride 104 mmol/L (98-107); Glucose 97 mg/dL (74-106); Sodium 139 mmol/L (136-145); Total Protein 7.2 g/dL (6.4-8.2)
[2021-01-10 22:32] LABS: Creatine Kinase 70 U/L (26-192)
== END 2021-01-10 14:33 | disposition home or self-care (01) ==
LOC: LBN 14:32
PROVIDERS: Visit Provider Internal Medicine Infectious Disease
DX: M00.061 Staphylococcal arthritis, right knee (principal); B95.62 Methicillin resistant Staphylococcus aureus infection as the cause of diseases classified elsewhere; Z79.2 Long term (current) use of antibiotics
CPT/HCPCS: 80053; 82550; 85025; 86140

== ENCOUNTER 2021-06-01 03:32 | Outpatient (CLI) | payer MEDICAID, SELFPAY ==
[2021-06-01 11:19] LABS: Abs Immature Grans 0.07 10^3/uL (0.0-0.06); Absolute Eosinophil Count 0.14 10^3/uL (0.0-0.7); Absolute Neutrophil Count 13.75 10^3/uL (1.2-6.7); Basophils % 0.7; Eosinophils % 0.8; HGB 13.6 g/dL (11.2-15.7); Immature Grans % 0.4; Lymphocytes % 17.5; MCH 29.1 pg (27.0-33.0); MCHC 32.4 % (32.0-36.0); MCV 89.9 fL (80-95); MPV 9.3 fL (8.0-11.0); Monocytes % 4.3; Neutrophils % 76.3; Nucleated RBC 0 %; Platelet Count 501 10^3/uL (130-400); RBC 4.67 10^6/uL (3.93-5.22); WBC 18.02 10^3/uL (4.4-10.8)
[2021-06-01 11:21] LABS: Absolute Basophil Count 0.13 10^3/uL (0.0-0.2); Absolute Lymphocyte Count 3.15 10^3/uL (1.2-3.4); Absolute Monocyte Count 0.77 10^3/uL (0.1-0.8)
[2021-06-01 13:12] LABS: ALT 103 U/L (14-59); AST 51 U/L (15-37); Alkaline Phosphatase 95 U/L (46-116); Anion Gap 13.3 mmol/L (3-11); BUN 13 mg/dL (7-18); Bilirubin, Total 0.4 mg/dL (0.2-1.0); CO2 22.7 mmol/L (21.0-32.0); CREATININE 0.7 mg/dL (0.55-1.02); Calcium 9.5 mg/dL (8.5-10.1); Chloride 102 mmol/L (98-107); Glucose 98 mg/dL (74-106); Potassium 4.2 mmol/L (3.5-5.1); Sodium 138 mmol/L (136-145); Total Protein 7.8 g/dL (6.4-8.2)
== END 2021-06-01 03:33 | disposition home or self-care (01) ==
LOC: LBO 03:32
PROVIDERS: Internal Medicine; Visit Provider Student in an Organized Health Care Education/Training Program
DX: M05.8A Other rheumatoid arthritis with rheumatoid factor of other specified site (principal); Z79.899 Other long term (current) drug therapy
CPT/HCPCS: 36415; 80053; 85025; 89060

== ENCOUNTER 2021-06-23 02:12 | Outpatient (CLI) | payer MEDICAID, SELFPAY ==
[2021-06-23 10:08] LABS: Abs Immature Grans 0.07 10^3/uL (0.0-0.06); Absolute Lymphocyte Count 2.35 10^3/uL (1.2-3.4); Absolute Monocyte Count 0.88 10^3/uL (0.1-0.8); Absolute Neutrophil Count 13.06 10^3/uL (1.2-6.7); Basophils % 0.7; Eosinophils % 1.1; HCT 42.1 % (36.0-46.0); HGB 13.5 g/dL (11.2-15.7); Immature Grans % 0.4; Lymphocytes % 14.1; MCH 29.2 pg (27.0-33.0); MCHC 32.1 % (32.0-36.0); MCV 90.9 fL (80-95); MPV 9.5 fL (8.0-11.0); Monocytes % 5.3; Neutrophils % 78.4; Nucleated RBC 0 %; Platelet Count 438 10^3/uL (130-400); RBC 4.63 10^6/uL (3.93-5.22); RDW 15.1 % (11.7-14.6); RDW-SD 49.9 fL; WBC 16.66 10^3/uL (4.4-10.8)
[2021-06-23 10:09] LABS: Absolute Basophil Count 0.12 10^3/uL (0.0-0.2); Absolute Eosinophil Count 0.18 10^3/uL (0.0-0.7)
[2021-06-23 10:11] LABS: ESR 43 mm/hr (0-20)
[2021-06-23 11:01] LABS: ALT 27 U/L (14-59); AST 16 U/L (15-37); Albumin 3.6 g/dL (3.4-5.0); Alkaline Phosphatase 87 U/L (46-116); BUN 14 mg/dL (7-18); Bilirubin, Total 0.4 mg/dL (0.2-1.0); C-Reactive Protein 0.72 mg/dL (0.0-0.3); CREATININE 0.8 mg/dL (0.55-1.02); Chloride 106 mmol/L (98-107); Glucose 120 mg/dL (74-106); Potassium 4.1 mmol/L (3.5-5.1); Sodium 139 mmol/L (136-145); Total Protein 7.3 g/dL (6.4-8.2)
[2021-06-23 12:27] LABS: Creatine Kinase 39 U/L (26-192)
== END 2021-06-23 02:13 | disposition home or self-care (01) ==
LOC: LBO 02:12
PROVIDERS: Visit Provider Internal Medicine
DX: M05.8A Other rheumatoid arthritis with rheumatoid factor of other specified site (principal); Z79.899 Other long term (current) drug therapy
CPT/HCPCS: 36415; 80053; 82550; 85652; 85025; 86140

== ENCOUNTER 2021-10-21 02:00 | Outpatient (CLI) | payer MEDICAID, SELFPAY ==
--- OUTSIDE RECORDS SUMMARY | 2021-10-21 02:03 | XMS_ITS | Encounter Summary ---
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 [facility] [address] [place]OUS [id number] DISEASE [phone] [place], [place] [address] Social History Tobacco Use Types Packs/Day Years Used Date Current Every Day Smoker Cigarettes 0.25 Smokeless Tobacco: Never Used Sex Assigned at Date Recorded Not on file documented as of this encounter Plan of Treatment Upcoming Encounters Date Type Specialty Care Team Description 01/25/2022 Office Visit Rheumatology Sadaf Bridges MD [facility] DR RHEUMATOLOGY [place], [place] [address] (Wo rk) documented as of this encounter Visit Diagnoses Diagnosis Staphylococcal arthritis of right knee Pyogenic arthritis, 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
--- OUTSIDE RECORDS SUMMARY | 2021-10-21 02:03 | XMS_ITS | Encounter Summary ---
:1975 Author Organization [facility] [place] [address] Care Team Providers Name Role Phone EzraAdelita Juan GUTIERREZ Primary Care Provider Reason for Visit Consultation (Routine) - Closed Specialty Diagnoses / Procedures Referred By Contact Refer red To Contact Rheumatology Diagnoses Other specified postprocedural states Monoarthritis, not elsewhere classified, right knee Rheumatoid arthritis, unspecified Robert Blake MD [facility] Rheumatology 5c Procedures consult and treat [address] [place], [place] 0[address] [phone] Referral ID Status Reason Start Date Expiration Date Visits Requ ested Visits Authorized [id number] Closed 01/07/2021 01/07/2022 1 1 Encounter Details Date Type Department Care Team Description 03/23/2021 Office Visit Rheumatology at [facility] Sadaf Bridges Rheumatoid arthritis with rh eumatoid factor, unspecified; [facility] Gregor Martinez MD [place] [address] CENTER [phone] RHEUMATOLOGY DEPT. [place], [place] [address] Social History Tobacco Use Types Packs/Day Years Used Date Current Every Day Smoker Cigarettes 0.25 Smokeless Tobacco: Never Used Sex Assigned at Date Recorded Not on file documented as of this encounter Progress Notes Sadaf Bridges MD - 03/23/2021 9:30 AM EST Referred by: Robert Blake For consultation and evaluation of: I have reviewed the provided records, pertinent records available in the [facility] medical record and anyforms completed by the patient. These have been scanned into the medical record for future review. 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 April 2019 she injured her knee at work. Right knee.Unableto weight bear. She had surgery June 09, 2019--she hada difficulty recovery. Her knee remained swollen. She was participating with PT--never fully resolved. Multiple appointments for eval without improvement. About one year later in [place], [facility] about September 2020. Aspiration--cloudy red fluid with 42,000 WBC and 84% PMNs. Re-eval showed PCR + for staph and enterococci but culture negative (please see ID notes from 11/2020) She had a clean out and she had IV antibiotics (4 weeks of daptomycin). Knee felt better. Neck shoulder collar bone. She noticed increased joint pain two weeks into antibiotic treatment. Swelling in hands--all the way to elbows. She was notable to use her hands. Now more clearly in MCPs. Wrists--she has bumps on her hands. She was startedon celebrex-helped initially. No salvager. Last two weeks. She was also taking bromalin and has questions about this. She has a rash on her arms chest abdomen and across shoulders. Comes and goes throughout treatment. Occ itchy. Her hands and feet get cold. Small scabbed picked lesions. ROS: No Raynaud's No sicca No malar rash No sun sensitivity No patchy alopecia or hair loss No RUSH No vision change, red painful or swollen eyes No hearing loss or ear pain No epistaxis, no sinusitis or ulcers No oral ulcers or thrush No SOB or cough, no hemoptysis No CP or palpitations No abdominal pain or GI complaints including nausea, vomiting, diarrhea or constipation No urinary complaints No bruising No focal or global weakness No fevers, chills, sweats or adenopathy No unintentional weight loss or excessive fatigue Mood is stable Medications and allergies reviewed PMH: Otherwise healthy 2 healthy 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 Alert and pleasant, clearly swollen joints and associated decreased mobility Skin: some about 3- 4mm picked lesions Sclera anicteric, conjunctiva not injected Nares without d/c O/p Moist no lesions, ulcers or thrush Neck: no cervical adenopathy Lungs: CTAB Heart RRR no mrg Abd: Active bs, soft, nt, nd no masses or organomegaly appreciated Ext: no c/c/e pulses 2+ and symmetric at DP and radial MS: neck and spine: decreased ROM at neck Shoulders: near FROM active ROM, but + impingement, no swelling Elbows: tender B Wrists: B synovitis and warmth, decreased ROM to a few degrees Hands: unable to make fist or claw, tender swollen all MCPS and PIPs Hips: intact ot log roll Knees: R knee visible larger than left, without large effusion or warmth Ankles: + swelling B Feet: + MTP sqeeze Neuro: grossly non-focal Labs/studies: Labs from December 06, 2020 Anti-CCP antibody less than 2.5 DASHA 1: 160 Rheumatoid factor 160 Tickborne panel including Lyme negative BUN 18 Creatinine 0.7 AST 17 ALT 30 CRP 1.55 Impression/Recommendations: Is a very pleasant 45-year-old woman presents with a 2-month history of polyarticular predominantly symmetric small joint markedly inflammatory arthritis with negative anti-CCP and positive rheumatoid factor. This arose in the setting of treatment for a right knee septic arthritis that was PCR positive for staph aureus and enterococci with daptomycin. She has now completedtreatment for the right knee septic arthritis and that is much better. This could be a version of reactive arthritis but the presentation is more consistent with rheumatoid at this time. Would proceed to treat as RA and follow-up on positive DASHA as well--no c/w SLE--although she has a rash.. You can be markedly antibiotic positive in in the setting of treatment of a severe infection so will continue to keep an open mind about whether this could resolve in the short-term. She is also a smoker which does increase the risk of rheumatoid arthritis. She is wholeheartedly in agreement with treatment, and will give her triamcinolone 40 mg IM in the office today to get her treatment started while we are obtaining safety labs. I think the first step would be methotrexate 15 mg weekly with folic acid 1 mg daily provided her labs are normal. She does not have a prior history of leukopenia, CKD or transaminitis. The lab work in preparation for startingmethotrexate is below. If rash not improved with Rx for RA, would refer to derm for bx. We will review her vaccinations at the next visit and also address the issue of bone health. Overall she prefers to use naturopathic and supplements. She has some questions about bromelin todayand whether it was beneficial and whether she can take it chronically that I was unable to answer because it outside of my area of expertise. I sent a message to the secretaries to please schedule follow up for 4pm on March Orders Placed This Encounter Procedures ??? Sedimentation rate ??? CRP, acute inflammation ??? Hepatitis B Core Antibody, Total ??? Hepatitis B Surface Antigen ??? Hepatitis B Surface Antibody ??? Hepatitis C Antibody ??? HIV Screen, 4th Generation ([facility]/CGP/APD/NLH) ??? Extractable Nuclear Antigen ([place]) Ab ??? DNA Antibody (Double-Stranded) ??? C3 Complement ??? C4 Complement ??? Complement, Total Thank you for this interesting referral. Please do not hesitate to contact me if you have any questions or concerns. documented in this encounter Plan of Treatment Upcoming Encounters Date Type Specialty Care Team Description 01/25/2022 Office Visit Rheumatology Sadaf Bridges MD [facility] DR RHEUMATOLOGY [place], [place] [address] (Wo rk) documented as of this encounter Procedures Procedure Name Priority Date/Time Associated Comments Diagnosis DSDNA AB IFA Routine 03/23/2021 11:09 Results for this AM EST procedure are i n the results section. HC C-REACTIVE PROTEIN Routine 03/23/2021 11:09 Rheumatoid Re sults for this AM EST arthritis with procedure are in rheumatoid factor, the resul ts unspecified section. High risk medication use HC PCH EXTRACTABLE Routine 03/23/2021 11:09 Rheumatoid Resul ts for this NUCLEAR ANTIGEN AM EST arthritis with procedure are in rheumatoid factor, the resul ts unspecified section. High risk medication use HC PCH DNA AB DS Routine 03/23/2021 11:09 Rheumatoid Results for this ([place]) AM EST arthritis with procedure are in rheumatoid factor, the resul ts unspecified section. High risk medication use HC HEPATITIS C Routine 03/23/2021 11:09 Rheumatoid Results f or this ANTIBODY AM EST arthritis with procedure are in rheumatoid factor, the resul ts unspecified section. High risk medication use HC HEPATITIS B CORE Routine 03/23/2021 11:09 Rheumatoid Resu lts for this AB AM EST arthritis with procedure are in rheumatoid factor, the resul ts unspecified section. High risk medication use HC HIV SCREEN, 4TH Routine 03/23/2021 11:09 Rheumatoid Resul ts for this GENERATION AM EST arthritis with procedure are in rheumatoid factor, the resul ts unspecified section. High risk medication use HC HEPATITIS B Routine 03/23/2021 11:09 Rheumatoid Results f or this SURFACE AB AM EST arthritis with procedure are in rheumatoid factor, the resul ts unspecified section. High risk medication use HC HEPATITIS B Routine 03/23/2021 11:09 Rheumatoid Results f or this SURFACE AG AM EST arthritis with procedure are in rheumatoid factor, the resul ts unspecified section. High risk medication use HC ESR-SEDIMENTATION Routine 03/23/2021 11:09 Rheumatoid Res ults for this RATE, BLOOD AM EST arthritis with procedure are in rheumatoid factor, the resul ts unspecified section. High risk medication use HC VENIPUNCTURE Routine 03/23/2021 11:09 Rheumatoid Results for this AM EST arthritis with procedure are in rheumatoid factor, the resul ts unspecified section. High risk medication use HC COMPLEMENT,C3 Routine 03/23/2021 11:09 Rheumatoid Results for this SERUM AM EST arthritis with procedure are in rheumatoid factor, the resul ts unspecified section. High risk medication use HC COMPLEMENT C4, Routine 03/23/2021 11:09 Rheumatoid Result s for this PLASMA AM EST arthritis with procedure are in rheumatoid factor, the resul ts unspecified section. High risk medication use documented in this encounter Results dsDNA Ab IFA (03/23/2021 11:09 AM EST) P athologist Signature dsDNA Ab IFA Negative Negative [facility] Comment: Test Performed by: [facility] [address] [place] [address] Mechanical Lead: Calos Florentino M.D. Ph. D.; CLIA# [id number] dsDNA Ab IFA interp SEE COMMENTS [facility] Comment: Testing for dsDNA antibody by Crithidia IFA was negative. Unable to confirm borderline positive re sult obtained by enzyme immunoassay. Test Performed by: [facility] [address] [place] [address] Mechanical Lead: Calos Florentino M.D. Ph. D.; CLIA# [id number] Specimen Anatomical Collection Method Collection Time Receive d Time (Source) Location / / Volume Laterality Blood 03/23/2021 11:09 03/23/2021 AM EST 11:14 AM EST Sadaf Bridges MD CHEMISTRY ORDERABLES Performing Organization Address City/[facility]/[place] [address] (ABNORMAL) Complement, Total (03/23/2021 11:09 AM EST) Analysis Performed At Patho logist Time Signature Complement >95 (H) 42 - 95 [facility] Total unit/mL [facility] Comment: Please note that as of 11/16/2020, the m ethod for CH50 (complement, total) has changed. Please also note the change in reference intervals. Corrected from >95 unit/mL [HI] on 03/31 15:55:11 EST by Stefanie Guerra Corrected from >94 unit/mL on 03/31/21 1 5:55:08 EST by Stefanie Guerra Specimen Anatomical Collection Method Collection Time Receive d Time (Source) Location / / Volume Laterality Blood 03/23/2021 11:09 03/23/2021 AM EST 11:14 AM EST Resulting Agency Comment Spec In Lab Sadaf Bridges MD CHEMISTRY ORDERABLES Performing Organization Address City/[facility]/[place] [address] C4 Complement (03/23/2021 11:09 AM EST) athologist Signature C4 Complement 19 10 - 40 [facility] mg/dL [facility] Specimen Anatomical Collection Method Collection Time Receive d Time (Source) Location / / Volume Laterality Blood 03/23/2021 11:09 03/23/2021 AM EST 11:14 AM EST Resulting Agency Comment Spec In Lab Sadaf Bridges MD CHEMISTRY ORDERABLES Performing Organization Address City/[facility]/ZIP [facility] [place] [address] C3 Complement (03/23/2021 11:09 AM EST) athologist [facility] C3 Complement 153 90 - 180 [facility] mg/dL [facility] Specimen Anatomical Collection Method Collection Time Receive d Time (Source) Location / / Volume Laterality Blood 03/23/2021 11:09 03/23/2021 AM EST 11:14 AM EST Resulting Agency Comment Spec In Lab Sadaf Bridges MD CHEMISTRY ORDERABLES Performing Organization Address City/[facility] [place] [address] (ABNORMAL) DNA Antibody (Double-Stranded) (03/23/2021 11:09 AM EST) athologist [facility] dsDNA Ab 30.0 (H) <30.0 [facility] (Negative) [facility] Comment: Interpretation: Borderline (30.0-75.0) See dsDNA Ab by Matilde IFA, IgG for confirmatory test result. Test Performed by: [facility] [address] [place] [address] Mechanical Lead: Calos Florentino M.D. Ph. D.; CLIA# [id number] Specimen Anatomical Collection Method Collection Time Receive d Time (Source) Location / / Volume Laterality Blood 03/23/2021 11:09 03/23/2021 1:51 AM EST PM EST Resulting Agency Comment Spec In Lab Sadaf Bridges MD CHEMISTRY ORDERABLES Performing Organization Address City/[facility]/ZIP Code Phon e Number [facility] [place] [address] Extractable Nuclear Antigen ([place]) Ab (03/23/2021 11:09 AM EST) [facility] Method Time Signature [place] Ab TORY MARS Test ?Result ?Flag ??Unit ??RefValue [facility] Ab to Extractable Nuclear Ag [place],S LABORATORY ??SS-A/Ro Ab, IgG, S ?<0.2 ?U ? <1.0 (Negative) ??SS-B/La Ab, IgG, S ?<0.2 ?U ? <1.0 (Negative) ??Sm Ab, IgG, S ? <0.2 ?U ? <1.0 (Negative) ??CIVIL STRUCTURAL ENGINEER Ab, IgG, S ?0.3 ? U ? <1.0 (Negative) ??Scl 70 Ab, IgG, S ? <0.2 ?U ? <1.0 (Negative) ??Molly 1 Ab, IgG, S ? <0.2 ?U ? <1.0 (Negative) ?Test Performed by: ?[facility] [address] [facility] ?[address] [place] [address] ?Mechanical Lead: Calos Florentino M.D. Ph.D.; [facility]# [id number] Specimen Anatomical Collection Method Collection Time Receive d Time (Source) Location / / Volume Laterality Blood 03/23/2021 11:09 03/23/2021 1:51 AM EST PM EST Resulting Agency Comment Spec In Lab Sadaf Bridges MD IMMUNOLOGY ORDERABLES Performing Organization Address [facility] Phon e Number [address] HIV Screen, 4th Generation ([facility]/CGP/APD/NLH) (03/23/2021 11:09 AM EST) Analysis Performed At [facility] Signature HIV-1/2 Ab and Negative Negative [facility] Comment: This 4th Generation HIV test screens for the presence of the HIV-1 p24 antigen as well as antibodies reactive against H IV-1 and HIV-2. A negative screen does not rule out an acute HIV infection. If acute HIV infection is suspected, testing should be repeated in 2 - 3 week s or HIV nucleic acid testing performed. HIV Comment Low Risk of HIV Infection [facility] Specimen Anatomical Collection Method Collection Time Receive d Time (Source) Location / / Volume Laterality Blood 03/23/2021 11:09 03/23/2021 AM EST 11:14 AM EST Resulting Agency Comment Spec In Lab Sadaf Bridges MD IMMUNOLOGY ORDERABLES Performing Organization Address [facility] Phon e Number [address] Hepatitis C Antibody (03/23/2021 11:09 AM EST) Analysis Performed At Patho logist Time Signature Hepatitis C Ab Negative Negative [facility] Specimen Anatomical Collection Method Collection Time Receive d Time (Source) Location / / Volume Laterality Blood 03/23/2021 11:09 03/23/2021 AM EST 11:14 AM EST Resulting Agency Comment Spec In Lab Sadaf Bridges MD IMMUNOLOGY ORDERABLES Performing Organization Address City/[facility] [place] [address] Hepatitis B Surface Antibody (03/23/2021 11:09 AM EST) P athologist Signature HepB Surface >800.0 IU/L [facility] Comment: HepB Surface Ab Quant: Unvaccinated: < 8.5 IU/L Vaccinated: > 11.5 IU/L HepB Surface Ab Positive [facility] Comment: Patient is considered to be immune to HB V infection. Expected Results: Vaccinated: Positive Unvaccinated: Negative Specimen Anatomical Collection Method Collection Time Receive d Time (Source) Location / / Volume Laterality Blood 03/23/2021 11:09 03/23/2021 AM EST 11:14 AM EST Resulting Agency Comment Spec In Lab Sadaf Bridges MD IMMUNOLOGY ORDERABLES Performing Organization Address City/[facility] [place] [address] Hepatitis B Surface Antigen (03/23/2021 11:09 AM EST) Analysis Performed At Patho logist Time Signature HepB Surface Negative Negative [facility]ORY Specimen Anatomical Collection Method Collection Time Receive d Time (Source) Location / / Volume Laterality Blood 03/23/2021 11:09 03/23/2021 AM EST 11:14 AM EST Resulting Agency Comment Spec In Lab Sadaf Bridges MD CHEMISTRY ORDERABLES Performing Organization Address City/[facility] Phon e Number [address] Hepatitis B Core Antibody, Total (03/23/2021 11:09 AM EST) Analysis Performed At Patho logist Time Signature Hep B Core Ab Negative Negative [facility] Specimen Anatomical Collection Method Collection Time Receive d Time (Source) Location / / Volume Laterality Blood 03/23/2021 11:09 03/23/2021 AM EST 11:14 AM EST Resulting Agency Comment Spec In Lab Sadaf Bridges MD CHEMISTRY ORDERABLES Performing Organization Address City/[facility]/ZIP Code Phon e Number [address] (ABNORMAL) CRP, acute inflammation (03/23/2021 11:09 AM EST) P athologist Signature CRP 46.9 (H) <=4.9 mg/L [facility] Specimen Anatomical Collection Method Collection Time Receive d Time (Source) Location / / Volume Laterality Blood 03/23/2021 11:09 03/23/2021 AM EST 11:14 AM EST Resulting Agency Comment Spec In Lab Sadaf Bridges MD CHEMISTRY ORDERABLES Performing Organization Address City/[facility] [place] [address] (ABNORMAL) Sedimentation rate (03/23/2021 11:09 AM EST) P athologist Signature Sed Rate 116 (H) 2 - 37 [facility] mm/hr [facility] Comment: Effective April 09, 2019 new capillar y photometric technology has resulted in a change in reference ranges. It is r ecommended that each ESR result be reviewed with its own age appropriate re ference range. Specimen Anatomical Collection Method Collection Time Receive d Time (Source) Location / / Volume Laterality Blood 03/23/2021 11:09 03/23/2021 AM EST 11:14 AM EST Resulting Agency Comment Spec In Lab Sadaf Bridges MD HEMATOLOGY ORDERABLES Performing Organization Address City/[facility]/ZIP [facility] Phon e Number [address] documented in this encounter Visit Diagnoses Diagnosis Rheumatoid arthritis with rheumatoid fac tor, unspecified High risk medication use Encounter for long-term (current) use of other medications documented in this encounter Administered Medications Inactive Administered Medications - up to 3 most recent administrations Medication Order MAR Action Action Date Dose Rate Site triamcinolone acetonide Given 03/23/2021 10:40 AM 40 mg Right Gluteal (Kenalog-40) (40 mg/mL) EST injection 40 mg 40 mg, Intramuscular, ONCE, 1 dose, On Sun03/23/21 at 1100, Routine documented in this encounter Care Teams Carton Filler Relationship Specialty Start Date End Date Adelita Munguia APRN PCP - General Family Medicine 12/03/20 [address] [place] [address] documented as of this encounter
--- OUTSIDE RECORDS SUMMARY | 2021-10-21 02:03 | XMS_ITS | Encounter Summary ---
:1975 Author Organization [facility] [place] [address] Care Team Providers Name Role Phone Adelita Munguia MATT Primary Care Provider Reason for Visit Reason Onset Date Comments Labs Only 07/05/2021 Encounter Details Date Type Department Care Team Description 07/05/2021 Telephone Rheumatology at [facility] Teena Clark RN [facility] [place] [address] Social History Tobacco Use Types Packs/Day Years Used Date Current Every Day Smoker Cigarettes 0.25 Smokeless Tobacco: Never Used Sex Assigned at Date Recorded Not on file documented as of this encounter Miscellaneous Notes Telephone Encounter - Teena Clark RN - 07/05/2021 11:46 AM EST Aicha calls again for lab results. Sadaf Bridges MD sent to Teena Clark RN Caller: Unspecified (Today, ??9:03 AM) I tried her twice before--please see last phone message as she did not have machines I could leave message. ??Is there a time whne she will be reachable? Or can she put an identifying message so I can leave a message? ??Thanks. ?? LM to RTC to nurse with time and number to call her at. documented in this encounter Plan of Treatment Upcoming Encounters Date Type Specialty Care Team Description 01/25/2022 Office Visit Rheumatology Sadaf Bridges MD [facility] RHEUMATOLOGY [place], [place] [address] (Wo rk) documented as of this encounter Visit Diagnoses Not on filedocumented in this encounter Care Teams Shift Supervisor Film Processing Relationship Specialty Start Date End Date Adelita Munguia APRN PCP - General Family Medicine 12/03/[address] [place] [address] documented as of this encounter
--- OUTSIDE RECORDS SUMMARY | 2021-10-21 02:03 | XMS_ITS | Encounter Summary ---
:1975 Author Organization [place] [address] Care Team Providers Name Role Phone Adelita Munguia APRN Primary Care Provider Reason for Visit Reason Onset Date Comments Medication Refill 05/04/2021 Encounter Details Date Type Department Care Team Description 05/04/2021 Refill Rheumatology at [facility] Teena Clark, [facility] [place] [address] Social History Tobacco Use Types Packs/Day Years Used Date Current Every Day Smoker Cigarettes 0.25 Smokeless Tobacco: Never Used Sex Assigned at Date Recorded Not on file documented as of this encounter Miscellaneous Notes Telephone Encounter - Teena Clark RN - 05/04/2021 12:37 PM EST Aicha calls to advise she is taking MTX 4 tabs weekly and Celebrex 200 mg BID and she would like sentto her pharmacy. Last note indicates MTX was increased to 6 tabs weekly. Aciha states another provider used to order the Celbrex. documented in this encounter Plan of Treatment Upcoming Encounters Date Type Specialty Care Team Description 01/25/2022 Office Visit Rheumatology Sadaf Bridges MD [facility] DR RHEUMATOLOGY [place], [place] [address] (Wo rk) documented as of this encounter Visit Diagnoses Not on filedocumented in this encounter Care Teams Sr. Strategic Sourcing Manager Relationship Specialty Start Date End Date Adelita Munguia APRN PCP - General Family Medicine 12/03/[address] [place] [address] documented as of this encounter
--- OUTSIDE RECORDS SUMMARY | 2021-10-21 02:03 | XMS_ITS | Encounter Summary ---
:1975 Author Organization [facility] [place] [address] Care Team Providers Name Role Phone Adelita Munguia APRN Primary Care Provider Encounter Details Date Type Department Care Team Description 01/20/2021 Telephone Rheumatology at [facility] [place] [address] Social History Tobacco Use Types Packs/Day Years Used Date Current Every Day Smoker Cigarettes 0.25 Smokeless Tobacco: Never Used Sex Assigned at Date Recorded Not on file documented as of this encounter Miscellaneous Notes Telephone Encounter - Yaneth Sy - 01/20/2021 3:57 PM EDT Lm with pt to cb and schedule from referral - Graded B+ documented in this encounter Plan of Treatment Upcoming Encounters Date Type Specialty Care Team Description 01/25/2022 Office Visit Rheumatology Sadaf Bridges MD [facility] ER DR RHEUMATOLOGY [place], [place] [address] (Wo rk) documented as of this encounter Visit Diagnoses Not on filedocumented in this encounter Care Teams Floral Associate Relationship Specialty Start Date End Date Adelita Munguia APRN PCP - General Family Medicine 12/03/[address] [place], [place] [address] documented as of this encounter
--- OUTSIDE RECORDS SUMMARY | 2021-10-21 02:03 | XMS_ITS | Encounter Summary ---
:1975 Author Organization [facility] Address [facility] [place] [address] Care Team Providers Name Role Phone Adelita Munguia Juan GUTIERREZ Primary Care Provider Encounter Details Date Type Department Care Team Description 01/12/2021 Office Visit Infectious Disease Erik Dorman MD Staphylococcal arthritis of right knee; at [facility] snf current use of ant ibiotics; [facility] MRSA infection; [facility] INFECTIOUS Medication monitoring [place], [place] DISEASE [id number] [place], [place] [address] [phone] Social History Tobacco Use Types Packs/Day Years Used Date Current Every Day Smoker Cigarettes 0.25 Smokeless Tobacco: Never Used Sex Assigned at Date Recorded Not on file documented as of this encounter Last Filed Vital Signs Vital Sign Reading Time Taken Comments Blood Pressure 146/67 01/12/2021 11:22 AM EDT Pulse 70 01/12/2021 11:22 AM EDT Temperature 36.2 ??C (97.2 ??F) 01/12/2021 11:22 AM EDT Respiratory Rate 18 01/12/2021 11:22 AM EDT Oxygen Saturation 99% 01/12/2021 11:22 AM EDT Inhaled Oxygen Concentration - - Weight 97.7 kg (215 lb 4.8 oz) 01/12/2021 11:22 AM EDT Height 172.7 cm (5' 7.99) 01/12/2021 11:22 AM EDT Body Mass Index 32.74 01/12/2021 11:22 AM EDT documented in this encounter Progress Notes Erik Dorman MD - 01/12/2021 11:30 AM EDAnia: ID clinic note ID clinic note S: Pt feels well, denies f/c, ROM of R knee is improved. Denies swelling/pain of R knee, did not have much since her surgery 10/2020. Her appt with Ortho is on 02/11/21. For the past 1 month, pt has had intermittent swelling and pain of b/l wrist, fingers. She tried ibuprofen without much relief. She is taking tumeric/spencer/garlic/black pepper supplement for this. In 12/03, pt had bloodwork showing +RF 159.9 (normal <12) and +DASHA (1:160 speckled), negative CCP. She was referred to Rheum, does not have appt yet. Her leukocytosis, CRP and plt remain stably elevated. O: Patient Vitals for the past 24 hrs: Temp Pulse Resp BP SpO2 01/12/21 1122 36.2 ??C (97.2 ??F) 70 18 146/67 99 % NAD R wrist > L wrist warmth, erythema. 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 Knee is not warm or red A&O, moves all 4 Euthymic, pleasant Labs: 01/10/21: Cr 0.7, WBC 14, plt 480, CRP 1.55 (upper limit 0.3), CPK 70 01/03/21: Cr 0.7, WBC 15, plt 467, CRP 1.64, CPK 118 12/27/20: Cr 0.7, WBC 15, plt 470, CRP 2.03, CPK 56 A/P: 45 F with chilkat R knee MRSA septic arthritis. Pending completion of 4 wks of daptomycin IV (8mg/kg), from 12/16-01/13. Can remove PICC after completion of therapy tomorrow. Of note, pt also has concurrent what appears to be new dx of inflammatory polyarticular arthritis, likely RA. This is likely responsible for mild but persistent elevation of inflammatory markers. The knee itself appears stable, no active inflammation notable on exam. Today her wrists are grossly inflamed, R > L. Advised prompt f/u with Rheum, pt awaiting on appt. If pt is started on immunosuppressant for treatment of her RA, her R knee will need to be monitored carefully for recurrence of septic arthritis. Pt can f/u with ID PRN. Erik Dorman MD Pt seen and discussed with Dr Olea. Salbador Olea MD - 01/12/2021 11:30 AM EDT Attending Addendum: I have seen and examined the patient, reviewed the data and agree with the note by Dr. Dorman. 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
--- OUTSIDE RECORDS SUMMARY | 2021-10-21 02:03 | XMS_ITS | Encounter Summary ---
:1975 Author Organization [facility] [place] [address] Care Team Providers Name Role Phone Adelita Munguia MATT Primary Care Provider Reason for Visit Reason Comments Medication Refill Encounter Details Date Type Department Care Team Description 09/12/2021 Refill [place] [facility] Sadaf Bridges MD [facility] [place] [address] RHEUMATOLOGY DEPT. [phone] [place], [place] [address] (Wo rk) Social History Tobacco Use Types Packs/Day Years Used Date Current Every Day Smoker Cigarettes 0.25 Smokeless Tobacco: Never Used Sex Assigned at Date Recorded Not on file documented as of this encounter Miscellaneous Notes Telephone Encounter - Norma Flores RN - 09/12/2021 12:13 PM EDT Refill Celebrex prep/pended for review. Last prescribed 05/04/2021. Last appointment was 04/13/2021. Looks like there may need to an office visit scheduled as noted in patient chart so will also ask audio visual secretary. Nurse called the patient, no answer. Left message to return call and schedule a office visit. Nurse said she received the medication request as well and sent this to her doctor. documented in this encounter Plan of Treatment Upcoming Encounters Date Type Specialty Care Team Description 01/25/2022 Office Visit Rheumatology Sadaf Bridges MD [facility] DR RHEUMATOLOGY [place], [place] [address] (Wo rk) documented as of this encounter Visit Diagnoses Not on filedocumented in this encounter Care Teams Mission Planner Relationship Specialty Start Date End Date Adelita Munguia APRN PCP - General Family Medicine 12/03/[address] [place] [address] documented as of this encounter
--- OUTSIDE RECORDS SUMMARY | 2021-10-21 02:03 | XMS_ITS | Encounter Summary ---
:1975 Author Organization [facility] [place] [address] Care Team Providers Name Role Phone Adelita Munguia APRN Primary Care Provider Encounter Details Date Type Department Care Team Description 01/04/2021 Notes Only Infectious Disease a t [facility] Cyn Ortega, [place] [address] Social History Tobacco Use Types Packs/Day Years Used Date Current Every Day Smoker Cigarettes 0.25 Smokeless Tobacco: Never Used Sex Assigned at Date Recorded Not on file documented as of this encounter Progress Notes Cyn Ortega, RN - 01/04/2021 10:15 AM EDT Infectious Disease OPAT program Faxed to [facility] on 01/04 at 1015 Fax confirmation on 01/04 at 1016 Spoke to construction craft laborer who said they would be able to add-on to yesterday's labs. Document(s) faxed: CK add-on documented in this encounter Plan of Treatment Upcoming Encounters Date Type Specialty Care Team Description 01/25/2022 Office Visit Rheumatology Sadaf Bridges MD [facility] DR RHEUMATOLOGY [place], [place] [address] (Wo rk) documented as of this encounter Visit Diagnoses Not on filedocumented in this encounter Care Teams Sludge Filtration Operator Relationship Specialty Start Date End Date Adelita Munguia APRN PCP - General Family Medicine 12/03/[address] [place] [address] documented as of this encounter
--- OUTSIDE RECORDS SUMMARY | 2021-10-21 02:03 | XMS_ITS | Encounter Summary ---
:1975 Author Organization [facility] [place] [address] Care Team Providers Name Role Phone Adelita Munguia MATT Primary Care Provider Encounter Details Date Type Department Care Team Description 06/03/2021 Orders Only Rheumatology at [facility] Sadaf Bridges, High risk medication [facility] [place] [address] RHEUMATOLOGY DEP [place] [address] Social History Tobacco Use Types Packs/Day Years Used Date Current Every Day Smoker Cigarettes 0.25 Smokeless Tobacco: Never Used Sex Assigned at Date Recorded Not on file documented as of this encounter Plan of Treatment Upcoming Encounters Date Type Specialty Care Team Description 01/25/2022 Office Visit Rheumatology Sadaf Bridges MD [facility] ER RHEUMATOLOGY [place]P [place], [place] [address] (Wo rk) Scheduled Orders Name Type Priority Associated Diagnoses Order S chedule CBC (with Diff) Lab Routine High risk medication Expe cted: 06/03/2021 use (Approximate), Expires: 2022 Comprehensive metabolic Lab Routine High risk medicat ion Expected: 06/03/2021, panel (non-fasting) use Expires: 06/04/2022 documented as of this encounter Results (ABNORMAL) Sedimentation rate (09/20/2021 11:01 AM EDT) P athologist Signature Sed Rate 67 (H) 2 - [address] [facility] mm/hr [facility] Comment: Effective April 09, 2019 new capillar y photometric technology has resulted in a change in reference ranges. It is r ecommended that each ESR result be reviewed with its own age appropriate re ference range. Specimen Anatomical Collection Method Collection Time Receive d Time (Source) Location / / Volume Laterality Blood 09/20/2021 11:01 09/20/2021 AM EDT 11:17 AM EDT Resulting Agency Comment Spec In Lab Sadaf Bridges MD HEMATOLOGY ORDERABLES Performing Organization Address City/[facility]/[place] [address] CK (09/20/2021 11:01 AM EDT) P athologist Signature CK, Total 42 0 - [address] [facility] unit/L [facility] Specimen Anatomical Collection Method Collection Time Receive d Time (Source) Location / / Volume Laterality Blood 09/20/2021 11:01 09/20/2021 AM EDT 11:17 AM EDT Resulting Agency Comment Spec In Lab Sadaf Bridges MD CHEMISTRY ORDERABLES Performing Organization Address City/[facility]/[place] [address] (ABNORMAL) CRP, acute inflammation (09/20/2021 11:01 AM EDT) P athologist Signature CRP 18.2 (H) <=4.9 mg/L [facility] Specimen Anatomical Collection Method Collection Time Receive d Time (Source) Location / / Volume Laterality Blood 09/20/2021 11:01 09/20/2021 AM EDT 11:17 AM EDT Resulting Agency Comment Spec In Lab Sadaf Bridges MD CHEMISTRY ORDERABLES Performing Organization Address City/[facility]/[place] [address] documented in this encounter Visit Diagnoses Diagnosis High risk medication use Encounter for long-term (current) use of other medications documented in this encounter Care Teams Polishing Machine Tender Relationship Specialty Start Date End Date Adelita Munguia APRN PCP - General Family Medicine 12/03/[address] [place] [address] documented as of this encounter
--- OUTSIDE RECORDS SUMMARY | 2021-10-21 02:03 | XMS_ITS | Encounter Summary ---
:1975 Author Organization [facility] [place] [address] Care Team Providers Name Role Phone Adelita Munguia MATT Primary Care Provider Encounter Details Date Type Department Care Team Description 01/05/2021 Telephone Infectious Disease a t [facility] Corin Sloan [place] [facility] [place] [address] INFECTIOUS DISEASE [phone] [place], [place] [address] (Wo rk) Social History Tobacco Use Types Packs/Day Years Used Date Current Every Day Smoker Cigarettes 0.25 Smokeless Tobacco: Never Used Sex Assigned at Date Recorded Not on file documented as of this encounter Miscellaneous Notes Telephone Encounter - Corin Sloan MD - 01/05/2021 8:32 AM EDT I called Aicha on 01/04/2021 to discuss her new wrist swelling and pain symptoms recently reported to [facility] nurse. According to Aicha, she has been having wrist pains and swellings intermittently since September but the most recent episode was the worst and lasted an entire night despite her conservative therapy (NSAIDs and icing). She told me that her left wrist was worse than her right with swelling extending to her proximal palm and pain but no limitations to flexion or extension. She attributed that to using her crutches excessively recently. She denied left arm swelling, malfunction of the PICC line, fevers, chills or any other signs of systemic infection. She also reports improvement in the above mentioned symptoms now. She also had a question regarding any possible interactions between her supplements (Lion's laurent andFish oil) and Daptomycin, I explained that no such interaction is known. Her wrist symptoms are alsounlikely to be secondary to daptomycin side effect. Aicha expressed understanding and she was encouraged to contact us should her wrist pain worsens or if the swelling include her left arm where she has the PICC line. This note was communicated o the OPAT nurse Cyn Ortega RN and Dr.Colleen Carney the attending on record. Corin Sloan MD Infectious Diseases Fellow documented in this encounter Plan of Treatment Upcoming Encounters Date Type Specialty Care Team Description 01/25/2022 Office Visit Rheumatology Sadaf Bridges MD [facility] [address] RHEUMATOLOGY [place], [place] [address] (Wo rk) documented as of this encounter Visit Diagnoses Not on filedocumented in this encounter Care Teams Planishing Hammer Operator Relationship Specialty Start Date End Date Adelita Munguia, VISITING PROFESSOR PCP - General Family Medicine 12/03/[address] [place] [address] documented as of this encounter
--- OUTSIDE RECORDS SUMMARY | 2021-10-21 02:03 | XMS_ITS | Encounter Summary ---
:1975 Author Organization [facility] [place] [address] Care Team Providers Name Role Phone Adelita Munguia MATT Primary Care Provider Encounter Details Date Type Department Care Team Description 06/03/2021 Telephone Rhe[place]ology at [facility] Sadaf Bridges MD [facility] [place] [address] RHEUMATOLOGY DEPT. [phone] [place], [place] [address] (Wo rk) Social History Tobacco Use Types Packs/Day Years Used Date Current Every Day Smoker Cigarettes 0.25 Smokeless Tobacco: Never Used Sex Assigned at Date Recorded Not on file documented as of this encounter Miscellaneous Notes Telephone Encounter - Sadaf Bridges MD - 06/03/2021 10:33 AM EST She stayed at the 10mg of methotrexate. She is taking the ES tyelnol. 36 hours after stopping the celebrex. Taking vitain D and folate. Joints are felling better. Muscles are aching. She is getting swelling again--not the same extent ofpain. Weakness. She had one good day of feeling normal. Knee is ok. Taking 3000mg of tylenol daily. 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 nd can see her sooner) She has not had menses in 14 years, so advised prompt evaluation of DUB documented in this encounter Plan of Treatment Upcoming Encounters Date Type Specialty Care Team Description 01/25/2022 Office Visit Rheumatology Sadaf Bridges MD [facility] ER DR RHEUMATOLOGY [place], [place] [address] (Wo rk) documented as of this encounter Visit Diagnoses Not on filedocumented in this encounter Care Teams Forensic Anthropologist Relationship Specialty Start Date End Date Adelita Munguia, MATT PCP - General Family Medicine 12/03/[address] [place] [address] documented as of this encounter
--- OUTSIDE RECORDS SUMMARY | 2021-10-21 02:03 | XMS_ITS | Encounter Summary ---
:1975 Author Organization [facility] [place] [address] Care Team Providers Name Role Phone Adelita Munguia APRN Primary Care Provider Encounter Details Date Type Department Care Team Description 01/12/2021 Orders Only Infectious Disease at [facility] lococcal arthritis of right knee; [facility] Salbador Malave MD MRSA infection; [facility] MEDICAL senior living current use of antibiotics [facility] [address] [place], [place] INFECTIOUS [address] DISEASE [phone] [place] [id number] Social History Tobacco Use Types Packs/Day Years Used Date Current Every Day Smoker Cigarettes 0.25 Smokeless Tobacco: Never Used Sex Assigned at Date Recorded Not on file documented as of this encounter Plan of Treatment Upcoming Encounters Date Type Specialty Care Team Description 01/25/2022 Office Visit Rheumatology Sadaf Bridges MD [facility] DR RHEUMATOLOGY [place] [id number] (Wo rk) documented as of this encounter Visit Diagnoses Diagnosis Staphylococcal arthritis of right knee Pyogenic arthritis, lower leg MRSA infection Methicillin resistant Staphylococcus aur eus in conditions classified elsewhere and of unspecified site manager long term care current use of antibiotics Encounter for long-term (current) use of antibiotics documented in this encounter Care Teams District Sales Leader Relationship Specialty Start Date End Date Adelita Munguia APRN PCP - General Family Medicine 12/03/[address] [place] [address] documented as of this encounter
--- OUTSIDE RECORDS SUMMARY | 2021-10-21 02:03 | XMS_ITS | Encounter Summary ---
:1975 Author Organization [facility] [place] [address] Care Team Providers Name Role Phone Adelita Munguia APRN Primary Care Provider Reason for Visit Reason Onset Date Comments Follow-up 07/25/2021 Encounter Details Date Type Department Care Team Description 07/25/2021 Telephone Rheumatology at [facility] [place] [address] Social History Tobacco Use Types Packs/Day Years Used Date Current Every Day Smoker Cigarettes 0.25 Smokeless Tobacco: Never Used Sex Assigned at Date Recorded Not on file documented as of this encounter Miscellaneous Notes Telephone Encounter - Teena Clark RN - 07/25/2021 2:53 PM EDT Aicha calls to advise she has received all the letters and messages and can be reached before 11:00 am. Called at 1150 am so will have to RTC tomorrow. documented in this encounter Plan of Treatment Upcoming Encounters Date Type Specialty Care Team Description 01/25/2022 Office Visit Rheumatology Sadaf Bridges MD [facility] DR RHEUMATOLOGY [place], [place] [address] (Wo rk) documented as of this encounter Visit Diagnoses Not on filedocumented in this encounter Care Teams Instrument/Control Technician Relationship Specialty Start Date End Date Adelita Munguia APRN PCP - General Family Medicine 12/03/[address] [place] [address] documented as of this encounter
--- OUTSIDE RECORDS SUMMARY | 2021-10-21 02:03 | XMS_ITS | Clinical Summary ---
:1975 Author Organization [place] [address] Care Team Providers Name Role Phone Ezra Adelita Martinez APRN Primary Care Provider Allergies Active Allergy Reactions Severity Noted Date Comments Gluten High 11/29/2020 Other reaction( s): Rash Penicillins High CIS - Anaphylax is Medications Medication Sig Dispensed Refills Start Date End Date Status ibuprofen (Advil) 600 mg Take 600 mg by 0 11/23/2020 Active Tablet mouth 3 times daily as needed. fish oil-omega-3 fatty Take 2 g by 0 Active acids 1,000 mg Capsule mouth daily. folic acid (Folvite) 1 mg Take 1 tablet 90 tablet 3 03/25/2021 Active Tablet by mouth daily. magnesium 250 mg Tablet Take by mouth. 0 Active calcium carbonate Take by mouth. 0 Active (CALCIUM 300 ORAL) cholecalciferol, Vitamin Take by mouth. 0 Active D3, (cholecalciferol, Vitamin D3,) 50 mcg (2,000 unit) Capsule celecoxib (CeleBREX) 200 Take 1 capsule 60 capsule 11 2 Active mg Capsule by mouth 2 times daily. methylPREDNISolone Take 16mg (4 70 tablet 3 09/20/2021 Active (MedroL) 4 mg Tablet tablets) daily tablet for one week then decrease by 4mg a week until taking 4 mg a day. leflunomide (Arava) 10 mg Take 1 tablet 30 tablet 3 09/20/2021 Active Tablet by mouth daily. 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 Encounters Date Type Specialty Care Team Description 09/20/2021 Office Visit Rheumatology Sadaf Bridges MD High r isk medication use; Rheumatoid arth ritis with rheumatoid factor, unspecified 09/13/2021 Telephone Rheumatology Lázaro Irizarry MD 09/12/2021 Refill Rheumatology Sadaf Bridges MD 08/11/2021 Telephone Rheumatology Ingrid Simms 08/03/2021 Telephone Rheumatology Jeannette Durán RN Other (Tested Covid + on Sunday08/02/21 - OV appointment can celled due to illness) 08/03/2021 Telephone Rheumatology Ingrid Simms 07/25/2021 Telephone Rheumatology Teena Clark RN Follow-up from Last 3 Months Immunizations Name Administration Dates Next Due Td, adult 12/26/2002 Social History Tobacco Use Types Packs/Day Years Used Date Current Every Day Smoker Cigarettes 0.25 Smokeless Tobacco: Never Used Sex Assigned at Date Recorded Not on file Last Filed Vital Signs Vital Sign Reading Time Taken Comments Blood Pressure 134/85 04/13/2021 3:49 PM EST Pulse 70 04/13/2021 3:49 PM EST Temperature 36.2 ??C (97.2 ??F) 04/13/2021 3:49 PM EST Respiratory Rate 18 04/13/2021 3:49 PM EST Oxygen Saturation 99% 04/13/2021 3:49 PM EST Inhaled Oxygen Concentration - - Weight 113.4 kg (250 lb) 04/13/2021 3:49 PM EST reporte d Height 172.7 cm (5' 8) 04/13/2021 3:49 PM EST Body Mass Index 38.01 04/13/2021 3:49 PM EST Plan of Treatment Upcoming Encounters Date Type Specialty Care Team Description 01/25/2022 Office Visit Rheumatology Sadaf Bridges MD [facility] RHEUMATOLOGY [place], [place] [address] (Wo rk) Health Maintenance Due Date Last Done Comments Covid-19 Vaccine (#1) 07/29/1979 Pneumococcal Vaccine: At-Risk 5-64yrs (1 - 1980 PCV) Lipid Screening 1992 Tdap adult 1993 HPV test 2004 PAP Smear 2004 Tetanus vaccine 12/26/2012 12/26/2002 Breast Cancer Share Decision Needed 2014 Colonoscopy 07/29/2019 Influenza (Flu) vaccine (1 of - 12/29/2020 Influenza standard series) Diabetes Screening (HgbA1C or Glucose) 09/20/2024 2, 04/13/2021 HIV screen Completed 03/23/2021 Hepatitis C Screening Completed 03/23/2021 Procedures Procedure Name Priority Date/Time Associated Comments Diagnosis DIFFERENTIAL, Routine 09/20/2021 11:01 Rheumatoid Results fo r this AUTOMATED AM EDT arthritis with procedure are in rheumatoid factor, the resul ts unspecified section. High risk medication use HEMOGRAM Routine 09/20/2021 11:01 Rheumatoid Results for this AM EDT arthritis with procedure are in rheumatoid factor, the resul ts unspecified section. High risk medication use HC C-REACTIVE PROTEIN Routine 09/20/2021 11:01 High risk Re sults for this AM EDT medication use procedure are in the results section. HC CREATINE Routine 09/20/2021 11:01 High risk Results for this PHOSPHOKINASE, SERUM AM EDT medication use proce dure are in the results section. HC ESR-SEDIMENTATION Routine 09/20/2021 11:01 High risk Res ults for this RATE, BLOOD AM EDT medication use procedure are in the results section. HC CBC,PLT & AUTO DIFF Routine 09/20/2021 11:01 Rheumatoid AM EDT arthritis with rheumatoid factor, unspecified High risk medication use COMPREHENSIVE Routine 09/20/2021 11:01 Rheumatoid Results fo r this METABOLIC PANEL AM EDT arthritis with procedure are in (NON-FASTING) rheumatoid factor, the resu lts unspecified section. High risk medication use from Last 3 Months Results (ABNORMAL) CRP, acute inflammation (09/20/2021 11:01 AM EDT) P athologist Signature CRP 18.2 (H) <=4.9 mg/L [facility] Specimen Anatomical Collection Method Collection Time Receive d Time (Source) Location / / Volume Laterality Blood 09/20/2021 11:01 09/20/2021 AM EDT 11:17 AM EDT Resulting Agency Comment Spec In Lab Sadaf Bridges MD CHEMISTRY ORDERABLES Performing Organization Address City/State/[place] [address] (ABNORMAL) Hemogram (09/20/2021 11:01 AM EDT) Analysis Performed At Path logist Time Signature WBC 15.5 (H) 4.0 - 9.5 [facility] x[facility](3[facility] LABORATORY RBC 4.68 4.00 - [place] 5.21 [facility] x10(6)/[facility] LABORATORY Hemoglobin 13.2 11.7 [facility] g/dL [facility] Hematocrit 40.9 35.7 - [facility] 45.8 % [facility] MCV 87.4 82.6 - [facility] 94.4 [facility]AT[facility] MCH 28.2 27.1 - [place] 32.0 pg [facility] MCHC 32.3 31.7 - [facility] MADISYN 35.0 g/dL [facility] Platelets 551 (H) 145 - 357 [facility] x10(3)/[facility] LABORATORY RDWSD 41.4 37.0 - [facility] MADISYN 46.0 [facility] LABORATORY RDWCV 12.9 11.5 - [facility] MADISYN 14.1 % [facility] MPV 9.3 7.6 - 12.9 [facility] nRBC % Auto 0.0 % [facility] nRBC Abs Auto 0.000 0.000 - [facility] MADISYN 0.000 [facility] x10(3)/[facility] LABORATORY Specimen Anatomical Collection Method Collection Time Receive d Time (Source) Location / / Volume Laterality Blood 09/20/2021 11:01 09/20/2021 AM EDT 11:17 AM EDT Resulting Agency Comment Spec In Lab Sadaf Bridges MD HEMATOLOGY ORDERABLES Performing Organization Address City/State/[place] [address] (ABNORMAL) Differential, Automated (09/20/2021 11:01 AM EDT) Patholo gist Method Time Signature Neutrophils % 70.0 % [facility] Neutr Abs (ANC) 10.84 (H) 1.70 - [facility] 6.10 [facility] x10(3)/[facility] LABORATORY Lymphocytes % 21.0 % [facility] Lymphocytes Abs 3.2 0.9 - 3.2 [facility] x10(3)/[facility] LABORATORY Monocytes % 6.4 % [facility] Monocyte Abs 1.0 (H) 0.3 - 0.9 [facility] x10(3)/[facility] LABORATORY Eosinophils % 1.3 % [facility] Eosinophils Abs 0.2 0.0 - 0.4 [facility] x10(3)/[facility] LABORATORY Basophils % 0.8 % [facility] Basophils Abs 0.1 0.0 - 0.1 [facility] x10(3)/[facility] LABORATORY Immature Gran % 0.50 % [facility] Comment: Immature granulocytes(IG's)percentage an d absolute count will include metamyelocytes, myelocytes, and promyelo cytes. Blood smears from CBCs yielding IG's will be scanned manually for concor dance. If this scan disagrees with the automated IG or if promyelocytes are not ed, a manual differential will be performed. Akila Gran Abs 0.08 (H) 0.00 - 0.04 x10(3)/[facility] LABORATORY Specimen Anatomical Collection Method Collection Time Receive d Time (Source) Location / / Volume Laterality Blood 09/20/2021 11:01 09/20/2021 AM EDT 11:17 AM EDT Resulting Agency Comment Spec In Lab Sadaf Bridges MD HEMATOLOGY ORDERABLES Performing Organization Address City/State/Z[place] [address] (ABNORMAL) Sedimentation rate (09/20/2021 11:01 AM EDT) P athologist Signature Sed Rate 67 (H) 2 - 37 [facility] mm/hr [facility] Comment: Effective April 09, 2019 new [...] Bridges MD HEMATOLOGY ORDERABLES Performing Organization Address City/[facility]/[place] [address] CK (09/20/2021 11:01 AM EDT) athologist Signature CK, Total 42 0 - 160 [facility] unit/L [facility] Specimen Anatomical Collection Method Collection Time Receive d Time (Source) Location / / Volume Laterality Blood 09/20/2021 11:01 09/20/2021 AM EDT 11:17 AM EDT Resulting Agency Comment Spec In Lab Sadaf Bridges MD CHEMISTRY ORDERABLES Performing Organization Address City/[facility]/[place] [address] (ABNORMAL) Comprehensive metabolic panel (non-fasting) (09/20/2021 11:01 AM EDT) athologist Signature Glucose Lvl 88 65 - 199 [facility] mg/dL [facility] Comment: Diabetes: >=200 mg/dL plus symp toms BUN 15 8 - 18 mg/dL [facility] Creatinine 0.59 (L) 0.70 - 1.20 mg/dL [facility] Sodium 139 135 - 145 mmol/L [facility] Potassium 4.1 3.5 - 5.0 mmol/L [facility] Comment: Please note: ??Patients with WBC >100,00 0 may have falsely elevated Potassium levels. ??For accurate Potassium quantif ication in these patients send serum separator tube (gold top) for subsequent determinations. ??Contact the Clinical Chemistry Laboratory if there are any qu estions. Chloride 105 98 - 107 mmol/L [facility] CO2 22 22 - 31 mmol/L [facility] Anion Gap 12 5 - 15 mmol/L [facility] Calcium 9.7 8.5 - 10.5 mg/dL [facility] Total Protein 7.6 6.1 - 8.0 g/dL [facility] Albumin 4.3 3.2 - 5.2 g/dL [facility] AST 15 0 - 30 unit/L [facility] ALT 14 0 - 30 unit/L [facility] Alk Phos 99 35 - 105 unit/L [facility] Total Bilirubin 0.4 0.2 - 1.3 mg/dL [facility] Estimated GFR 109 >=60 mL/min/1.73 m?? [facility] Comment: This patient? s estimated glomerular filtration rate (eGFR) is between 109 mL/min/1.73 m2 (patients with less muscl e mass) and 127 mL/min/1.73 m2 (patients with more muscle mass) as dete rmined by the CKD-EPI equation. Assessment of eGFR is not appropriate wh en creatinine concentrations are rapidly changing. For clinical decisions where creatinine clearance will affect therapy, a 24-hour urine creatinine sapna hilda may be advised. Assignment of CKD stage 1 - 5 for patien ts with an eGFR near the transition point between stages may be based on cli nical assessment of muscle mass and symptoms in addition to eGFR. Specimen Anatomical Collection Method Collection Time Receive d Time (Source) Location / / Volume Laterality Blood 09/20/2021 11:01 09/20/2021 AM EDT 11:17 AM EDT Resulting Agency Comment Spec In Lab Sadaf Bridges MD CHEMISTRY ORDERABLES Performing Organization Address City/State/Z[place] [address] from Last 3 Months Insurance Payer Benefit Plan / Subscriber ID Effective Dates Phone Addre ss Type Group [employer] [id number] 2021-Pres [phone] [address] [employer] [place] P[place] ent [address] [place], [place] [address] MEDICAID [place] MEDICAID ID [id number] 2021-Pres [phone] [address] PRIMARY CARE ent 7 [facility] [id number] Care Teams Sales Development Consultant Relationship Specialty Start Date End Date Adelita Munguia, MATT PCP - General Family Medicine 12/03/[address] [place] [address]
--- OUTSIDE RECORDS SUMMARY | 2021-10-21 02:03 | XMS_ITS | Encounter Summary ---
:1975 Author Organization [facility] [place] [address] Care Team Providers Name Role Phone Adelita Munguia APRN Primary Care Provider Encounter Details Date Type Department Care Team Description 01/13/2021 Notes Only Infectious Disease a t [facility] Cyn Ortega, [place] [address] Social History Tobacco Use Types Packs/Day Years Used Date Current Every Day Smoker Cigarettes 0.25 Smokeless Tobacco: Never Used Sex Assigned at Date Recorded Not on file documented as of this encounter Progress Notes Cyn Ortega, RN - 01/13/2021 10:53 AM EDT Infectious Disease OPAT program Faxed to [facility] on 01/13 at 1052 Fax confirmation on 01/13 at 1053 Confirmed order with gris Bueno RN. Document(s) faxed: PICC removal order documented in this encounter Plan of Treatment Upcoming Encounters Date Type Specialty Care Team Description 01/25/2022 Office Visit Rheumatology Sadaf Bridges MD [facility] RHEUMATOLOGY [place], [place] [address] (Wo rk) documented as of this encounter Visit Diagnoses Not on filedocumented in this encounter Care Teams Role Player Relationship Specialty Start Date End Date Adelita Munguia APRN PCP - General Family Medicine 12/03/[address] [place] [address] documented as of this encounter
--- OUTSIDE RECORDS SUMMARY | 2021-10-21 02:03 | XMS_ITS | Encounter Summary ---
:1975 Author Organization [facility] [place] [address] Care Team Providers Name Role Phone Adelita Munguia MATT Primary Care Provider Encounter Details Date Type Department Care Team Description 12/23/2020 Notes Only Infectious Disease a t [facility] Cyn Ortega, [place] [address] Social History Tobacco Use Types Packs/Day Years Used Date Current Every Day Smoker Cigarettes 0.25 Smokeless Tobacco: Never Used Sex Assigned at Date Recorded Not on file documented as of this encounter Progress Notes Cyn Ortega, RN - 12/23/2020 12:55 PM EDT Called TERRI Bueno at [facility] to follow-up on PICC line interventions (see note from Candy Edmond RN on 12/21). Ximena reported that they were able to get the PICC line working with normal trouble-shooting techniques (repositioning the arm, flushing, dressing change); no need for Cathf lo or CXR. Ximena reported that she re-educated patient on caring for the line and activity restrictions while it is in place. No further follow-up needed at this time. -Cyn Ortega MSN, RN, CNL documented in this encounter Plan of Treatment Upcoming Encounters Date Type Specialty Care Team Description 01/25/2022 Office Visit Rheumatology Sadaf Bridges MD [facility] RHEUMATOLOGY [place], [place] [address] (Wo rk) documented as of this encounter Visit Diagnoses Not on filedocumented in this encounter Care Teams Casino Operations Supervisor Relationship Specialty Start Date End Date Adelita Munguia APRN PCP - General Family Medicine 12/03/[address] [place] [address] documented as of this encounter
--- OUTSIDE RECORDS SUMMARY | 2021-10-21 02:03 | XMS_ITS | Encounter Summary ---
:1975 [address] Organization [facility] [place] [address] Care Team Providers Name Role Phone EzraAdelita Juan GUTIERREZ Primary Care Provider Reason for Referral Physical Therapy (Routine) - Closed Specialty Diagnoses / Procedures Referred By Contact Refer red To Contact Physical Therapy Diagnoses Rheumatoid arthritis with rheumatoid factor, unspecified Sadaf Bridges MD [facility] D [place] [address] Referral ID Status Reason Start Date Expiration Date Visits V isits Requested Authorized [id number] Closed Evaluate and 04/13/2021 10/10/2021 1 1 Treat Reason for Visit Reason Comments Follow-up Encounter Details Date Type Department Care Team Description 04/13/2021 Office Visit Rheumatology at [facility] Sadaf Bridges Rheumatoid arthritis with rh eumatoid factor, unspecified; [facility] MD Juan [place] [address] CENTER [phone] RHEUMATOLOGY DEPT. [place], [place] [address] Social History Tobacco Use Types [...] Mass Index 38.01 04/13/2021 3:49 PM EST documented in this encounter Progress Notes Sadaf Bridges MD - 04/13/2021 4:00 PM EST Seropositive RA on MTX and injection of steroids Cc: emotional lability HPI:Takes MTX on Sunday. Has about 4 days of feelingbetter. + emotional lability. The swelling hascome down. She had a huge difference the first time she took it. She is working [employer]--a couple leg cramps. She stopped liMappyfriends laurent, Some home mademaple syrup. She has had 3 doses of MTX--it knocks her out. She feels fuzzy on Sunday. She is doing some PT. 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 NO fevers or SOB or infections. Doing well. Still can't make a full fist or claw, but better. Discussed diet and supplements. 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 April 2019 she injured her knee at work. Right knee.Unableto weight bear. She had surgery June 09, 2019--she hada difficulty recovery. Her knee remained swollen. She was participating with PT--never fully resolved. Multiple appointments for eval without improvement. About one year later in [facility] about September 2020. Aspiration--cloudy red fluid with [...] hands. She was startedon celebrex-helped initially. 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 Last two weeks. She was also taking bromalin and has questions about this. She has a rash on her arms chest abdomen and across shoulders. Comes and goes throughout treatment. Occ itchy. Her hands and feet get cold. Small scabbed picked lesions. 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 Alert and pleasant, clearly swollen joints and associated decreased mobility-better Skin: rash looks better Sclera anicteric, conjunctiva not injected MS: neck and spine: decreased ROM at neck Shoulders: near FROM active ROM, but + impingement, no swelling Elbows: tender B Wrists: B synovitis and warmth, decreased ROM to a few degrees Hands: unable to make fist or claw, tender swollen all MCPS and PIPs--improved but still with activesynovitis throughout: R knee visible larger than left, without large effusion or warmth Ankles: + swelling B Neuro: grossly non-focal Labs/studies: Labs from December 06, 2020 Anti-CCP antibody less than 2.5 DASHA 1: 160 Rheumatoid factor 160 Tickborne panel including Lyme negative BUN 18 Creatinine 0.7 AST 17 ALT 30 CRP 1.55 labsform February 2021 reviewed in e[facility] ESR > 100 CRP 47 Impression/Recommendations: Is a very pleasant 45-year-old woman [...] as well--no c/w SLE--although she has a rash. Started with IM triamcinalone 40mg and MTX 10mg weekly--tolerating, and clinically improved, but not yet in remission. She is improving. Increased MTX to 15mg weekly, and I believe the emotional lability is more likely from the steroids. Will add in po steroids if symptoms start to worsen as titrating up the MTX. Folicacid 1 mg daily. Discussed adding in biologic and will consider at next visit depending on how she is improving. Will refer to PT as well. We will review her vaccinations at the next visit and also address the issue of bone health. Overall she prefers to use naturopathic and supplements. Orders Placed This Encounter Procedures ??? CBC (with Diff) ??? Comprehensive metabolic panel (non-fasting) ??? Sedimentation rate ??? CRP, acute inflammation ??? Hemogram ??? Differential, Automated ??? Referral to Physical Therapy documented in this encounter Plan of Treatment Upcoming Encounters Date Type Specialty Care Team Description 01/25/2022 Office Visit Rheumatology Sadaf Bridges MD [facility] DR RHEUMATOLOGY DEP [place], [place] [address] ([facility]) Scheduled Referrals Name Type Priority Associated Diagnoses Order S chedule Referral to Outpatient Referral Routine Rheumatoid arthritis Ordered: Physical Therapy with rheumatoid 04/13/20 21 factor, unspecified documented as of this encounter Procedures Procedure Name Priority Date/Time Associated Comments Diagnosis HC VENIPUNCTURE Routine 04/13/2021 5:11 PM Rheumatoid Result s for this EST arthritis with procedure are in rheumatoid factor, the resul ts unspecified section. HEMOGRAM Routine 04/13/2021 5:11 PM Rheumatoid Results f or this EST arthritis with procedure are in rheumatoid factor, the resul ts unspecified section. DIFFERENTIAL, Routine 04/13/2021 5:11 PM Rheumatoid Results for this AUTOMATED EST arthritis with procedure are in rheumatoid factor, the resul ts unspecified section. HC ESR-SEDIMENTATION Routine 04/13/2021 5:11 PM Rheumatoid R esults for this RATE, BLOOD EST arthritis with procedure are in rheumatoid factor, the resul ts unspecified section. HC CBC,PLT & AUTO DIFF Routine 04/13/2021 5:11 PM Rheumatoid EST arthritis with rheumatoid factor, unspecified COMPREHENSIVE Routine 04/13/2021 5:11 PM Rheumatoid Results for this METABOLIC PANEL EST arthritis with procedure are in (NON-FASTING) rheumatoid factor, the resu lts unspecified section. documented in this encounter Results (ABNORMAL) Differential, Automated (04/13/2021 5:11 PM EST) [facility] Method Time Signature Neutrophils % 69.1 % [facility] LABORATORY Neutr Abs (ANC) 9.64 (H) 1.70 - [facility] 6.10 [facility] x10(3)/[facility] LABORATORY Lymphocytes % 24.4 % [facility] LABORATORY Lymphocytes Abs 3.4 (H) 0.9 - 3.2 [facility] x10(3)/[facility] LABORATORY Monocytes % 4.8 % [facility] LABORATORY Monocyte Abs 0.7 0.3 - 0.9 [facility] x10(3)/[facility] LABORATORY Eosinophils % 0.9 % [facility] LABORATORY Eosinophils Abs 0.1 0.0 - 0.4 [facility] x10(3)/[facility] LABORATORY Basophils % 0.5 % [facility] LABORATORY Basophils Abs 0.1 0.0 - 0.1 [facility] x10(3)/[facility] LABORATORY Immature Gran % 0.30 % [facility]OR[facility]ORY Comment: Immature granulocytes(IG's)percentage an d absolute count will include metamyelocytes, myelocytes, and promyelo cytes. Blood smears from CBCs yielding IG's will be scanned manually for concor dance. If this scan disagrees with the automated IG or if promyelocytes are not ed, a manual differential will be performed. Akila Gran Abs 0.04 0.00 - 0.04 x10(3)/[facility] LABORATORY Specimen Anatomical Collection Method Collection Time Receive d Time (Source) Location / / Volume Laterality Blood 04/13/2021 5:11 PM 1 5:24 EST PM EST Resulting Agency Comment Spec In Lab Sadaf Bridges MD HEMATOLOGY ORDERABLES Performing Organization Address City/State/[place] [address] (ABNORMAL) Hemogram (04/13/2021 5:11 PM EST) Analysis Performed At Patho logist Time Signature WBC 14.0 (H) 4.0 - 9.5 [facility] LABORATORY RBC 4.68 4.00 - [place] 5.21 [facility] x10(6)/[facility] LABORATORY Hemoglobin 13.3 11.7 - [facility] 15.[facility] g/dL [facility] LABORATORY Hematocrit 40.4 35.7 - [facility] 45.8 % [facility] LABORATORY MCV 86.3 82.6 - [facility] 94.4 [facility] LABORATORY MCH 28.4 27.1 - [place] 32.0 pg [facility] LABORATORY MCHC 32.9 31.7 - [facility] 35.0 g/dL [facility] LABORATORY Platelets 562 (H) 145 - 357 [facility] x10(3)/[facility] LABORATORY RDWSD 41.1 37.0 - [facility] MADISYN 46.0 [facility] LABORATORY RDWCV 13.2 11.5 - [facility] MADISYN 14.1 % [facility] LABORATORY MPV 9.4 7.6 - 12.9 [facility] MADISYN [facility] LABORATORY nRBC % Auto 0.0 % [facility] LABORATORY nRBC Abs Auto 0.000 0.000 - [facility] 0.000 [facility] x10(3)/[facility] LABORATORY Specimen Anatomical Collection Method Collection Time Receive d Time (Source) Location / / Volume Laterality Blood 04/13/2021 5:11 PM 1 5:24 EST PM EST Resulting Agency Comment Spec In Lab Sadaf Brdiges MD HEMATOLOGY ORDERABLES Performing Organization Address City/State/ZIP Code Phon e Number [address] (ABNORMAL) CRP, acute inflammation (04/13/2021 5:11 PM EST) athologist Signature CRP 15.4 (H) <=4.9 mg/L [facility] LABORATORY Specimen Anatomical Collection Method Collection Time Receive d Time (Source) Location / / Volume Laterality Blood 04/13/2021 5:11 PM 5:24 EST PM EST Resulting Agency Comment Spec In Lab Sadaf Bridges MD CHEMISTRY ORDERABLES Performing Organization Address City/[facility]/ZIP [place] Phon e Number [address] (ABNORMAL) Sedimentation rate (04/13/2021 5:11 PM EST) athologist Signature Sed Rate 72 (H) 2 - 37 [facility] mm/hr [facility] LABORATORY Comment: Effective April 09, 2019 new capillar y photometric technology has resulted in a change in reference ranges. It is r ecommended that each ESR result be reviewed with its own age appropriate re ference range. Specimen Anatomical Collection Method Collection Time Receive d Time (Source) Location / / Volume Laterality Blood 04/13/2021 5:11 PM 1 5:24 EST PM EST Resulting Agency Comment Spec In Lab Sadaf Bridges MD HEMATOLOGY ORDERABLES Performing Organization Address City/[facility] [place] [address] (ABNORMAL) Comprehensive metabolic panel (non-fasting) (04/13/2021 5:11 PM EST) athologist Signature Glucose Lvl 90 65 - 199 [facility] mg/dL [facility] LABORATORY Comment: Diabetes: >=200 mg/dL plus symp toms BUN 12 8 - 18 mg/dL [facility] LABORATORY Creatinine 0.67 (L) 0.70 - 1.20 mg/dL [facility] LABORATORY Sodium 140 135 - 145 mmol/L [facility] LABORATORY Potassium 4.4 3.5 - 5.0 mmol/L [facility] LABORATORY Comment: Please note: ??Patients with WBC >100,00 0 may have falsely elevated Potassium levels. ??For accurate Potassium quantif ication in these patients send serum separator tube (gold top) for subsequent determinations. ??Contact the Clinical Chemistry Laboratory if there are any qu estions. Chloride 106 98 - 107 mmol/L [facility] LABORATORY CO2 21 (L) 22 - 31 mmol/L [facility] LABORATORY Anion Gap 13 5 - 15 mmol/L [facility] LABORATORY Calcium 9.7 8.5 - 10.5 mg/dL [facility] LABORATORY Total Protein 7.9 6.1 - 8.0 g/dL [facility] LABORATORY Albumin 4.2 3.2 - 5.2 g/dL [facility] LABORATORY AST 32 (H) 0 - 30 unit/L [facility] LABORATORY ALT 43 (H) 0 - 30 unit/L [facility] LABORATORY Alk Phos 95 35 - 105 unit/L [facility] LABORATORY Total Bilirubin 0.3 0.2 - 1.3 mg/dL [facility] LABORATORY Estimated GFR 105 >=60 mL/min/1.73 m?? [facility] LABORATORY Comment: This patient? s estimated glomerular filtration rate (eGFR) is between 105 mL/min/1.73 m2 (patients with less muscl e mass) and 122 mL/min/1.73 m2 (patients with more muscle mass) as dete rmined by the CKD-EPI equation. Assessment of eGFR is not appropriate wh en creatinine concentrations are rapidly changing. For clinical decisions where creatinine clearance will affect therapy, a 24-hour urine creatinine sapna stevens may be advised. Assignment of CKD stage 1 - 5 for patien ts with an eGFR near the transition point between stages may be based on cli nical assessment of muscle mass and symptoms in addition to eGFR. Specimen Anatomical Collection Method Collection Time Receive d Time (Source) Location / / Volume Laterality Blood 04/13/2021 5:11 PM 5:24 EST PM EST Resulting Agency Comment Spec In Lab Sadaf Bridges MD CHEMISTRY ORDERABLES Performing Organization Address City/State/ZIP Code Phon e Number [place] [id number] documented in this encounter Visit Diagnoses Diagnosis Rheumatoid arthritis with rheumatoid fac tor, unspecified High risk medication use Encounter for long-term (current) use of other medications documented in this encounter Care Teams First Crusher Relationship Specialty Start Date End Date Adelita Munguia, GEOMETRY TUTOR PCP - General Family Medicine 12/03/[address] [place] [address] documented as of this encounter
--- OUTSIDE RECORDS SUMMARY | 2021-10-21 02:03 | XMS_ITS | Encounter Summary ---
:1975 Author Organization [facility] [place] [address] Care Team Providers Name Role Phone Adelita Munguia MATT Primary Care Provider Reason for Visit Consultation (Routine) - Closed Specialty Diagnoses / Procedures Referred By Contact Refer red To Contact Infectious Diseases Diagnoses Staphylococcal arthritis of right knee vest finisher current use of antibiotics Michelle Carney, Michelle Carney MD MD [facility] D R [facility] INFECTIOUS DISEASE [address] [place] [id number] INFECTIOUS DISEASE [place] [phone] Phone: Fax: Referral ID Status Reason Start Date Expiration Date Visits V isits Requested Authorized [id number] Closed Assume 12/15/2020 12/15/2021 1 1 Subset of Care Encounter Details Date Type Department Care Team Description 12/28/2020 TH Visit Infectious Disease Padmini Tilley Stap hylococcal arthritis of right knee; (TeleHealth) at [facility] MATT Coe MRSA infection; [facility] Francesco g term current use of antibiotics Drive Dr [address], [place], [place] [phone] Social History Tobacco Use Types Packs/Day Years Used Date Current Every Day Smoker Cigarettes 0.25 Smokeless Tobacco: Never Used Sex Assigned at Date Recorded Not on file documented as of this encounter Progress Notes Padmini Tilley APRN - 12/28/2020 11:30 AM EDT .. INFECTIOUS DISEASE CLINIC - OUTPATIENT FOLLOW UP Chief Complaint: R Knee [place] Septic Arthritis Microorganism(s): MRSA Antimicrobial Therapy: Daptomycin 600 mg IV daily Antibiotic Allergies: Penicillins History of Present Illness: Aicha Perez is a 45 y.o. female with PMH R knee multiple ligaments injury 04/2019 who was seen in clinic by ID Fellow, Dr. Marcus, 12/13/2020 for the opinion and management recommendations of MRSA growing from the synovium of her R knee. Per Dr. Marcus's note: Aicha injured her right knee in April of 2019 and at that time required arthroscopy which was followed by a period of little response despite PT. She continued to complain of swollen knee with redness and limited mobility. She eventually sought second opinion at and had arthrocentesis with 55536 WBCs and 84% PMNs, and no growth on cultures. MRI of her knee demonstrated severe synovitis and tricompartmental cartilage destruction. The subcartilaginous area showed evidence of osteonecrosis of the knee. She underwent revisit arthroscopy in October 2020 which showed extensive destruction of the joint space and evidence of inflammation. Cell count showed 72218 WBCs and 82% PMNs. Alpha defensin was positive and no crystals were seen. More interestingly, the PCR panel was positive for staph aureus and enterococci but no organisms grew (all done at outside lab [facility] in [place]). Pathology of the synovium specimen showed chronic inflammation and notable plasma cell infiltration. ?? The synovium specimen culture grew MRSA and the patient plans to eventually have a two-staged R kneearthroplasty. Thus, even in the absence of classic Septic Arthritis presentation, the patient was offered treatment with a pathogen- specific antibiotic (Daptomycin) for a 4 week course, which she accepted, and this was set up via OPAT program. Patient [facility] Patient presents today, via Telehealth, for her ID interim visit to evaluate her progress and response to long-term antimicrobial therapy. ROS: Patient states, I feel great, overall. Patient states she is doing well and ambulating without issue. The knee is fine. She reports a good appetite and energy level. She is using ibuprofen 200 mg po PRN for pain infrequently. She reports a rash on her abdomen which she states has been there since 2019, unclear etiology. In addition, she states she is having, pain, swelling, and pressure bilateral wrists and hands which predates her IV antibiotic treatment. She also notes pain in her L shoulder. Patient mentions that she has tested positive for rheumatoid arthritis. Patient states her PICC line LOY is working well and there are no issues with medication administration. She denies redness, swelling, pain, or discharge at the PICC site. Denies fevers, chills, night sweats, headache, dizziness Denies chest pain, palpitations Denies shortness of breath, cough Denies abdominal pain, nausea/vomiting, constipation/diarrhea Denies hematuria, dysuria Medications: Current Outpatient Medications Medication Sig Dispense Refill ??? DAPTOmycin (Cubicin) 500 mg Recon Soln Inject 600 mg into the vein daily for 28 days. 1 each 0 ??? ibuprofen (Advil) 600 mg Tablet Take 600 mg by mouth 3 times daily as needed. ??? UNABLE TO FIND Leg Cramp tablet taken as needed Allergies: Allergies Allergen Reactions ??? Gluten Other reaction(s): Rash ??? Penicillins CIS - Anaphylaxis Physical Exam: General: Patient seen via Telehealth in no distress. Alert and oriented, pleasant and cooperative HEENT: Normocephalic, atraumatic. Sclerae anicteric, non-hemorrhagic. No nasal secretions Pulmonary: Non-labored respirations. No audible wheezing Ext: Moves all extremities well. PICC line LOY Skin: No rash seen Neuro: Alert and oriented to person, place, time, and situation. No facial droop. No dysarthria Psych: Normal affect Labs: 12/27/2020: WBC = 15.05, Hb = 12, Plts = 470 BUN = 16, creatinine = 0.7 ALT = 21, AST = 12 CRP = 20.3 CPK = 56 12/20/2020: WBC = 14.71 CRP = 15.5 Microbiology: Reviewed Imaging: Reviewed Assessment: Aicha Perez is a 45 y.o. female who is currently on Daptomycin 600 mg IV daily for treatment of R knee ambler joint septic arthritis. The patient is doing well AEB no s/s infection (F/C, night sweats,headaches, dizziness, poor appetite, malaise, etc), however, she continues to have leukocytosis withWBC = 15.05 this week (from 14.71 last week) and elevated CRP = 20.3 this week (from 15.5 last week). Of note, patient's baseline WBC = 14.47 and CRP = 7.4 on 12/03/2018. Patient may have a co-occurringinflammatory process at work here given her recent diagnosis of RA and her c/o painful and swollen joints, bilateral wrists, hands, and L shoulder. Also, not sure what role patient's chronic rash on abd omen has on this or what the etiology of that 12+ month rash might be. Patient plans to follow-up with her PCP regarding these issues and I will cc this note to her PCP as well. Patient has an EOT visit 01/12/2021 with ID Fellow, Dr. Dorman. The prospective end date for IV antibiotic therapy is 01/13/2021. Plan: 1. Continue Daptomycin 600 mg IV daily 2. Continue weekly lab work: CBC w/diff, CMP, CRP, and CPK 3. EOT visit is scheduled 4. Consider Dermatology consult for rash 5. Consider Rheumatology consult for recent diagnosis and current symptoms 6. Patient's ID Attending, Dr. Carney, apprised of above I spent a total of 40 minutes with the patient, including my review of medical records prior to the visit, [id number] evaluation and counseling, clinical decision making, coordination of care and documentation. Padmini Tilley APRN, Infectious Disease 11:30 AM documented in this encounter Plan of Treatment Upcoming Encounters Date Type Specialty Care Team Description 01/25/2022 Office Visit Rheumatology Sadaf Bridges MD [facility] DR RHEUMATOLOGY [place], [place] [address] (Wo rk) documented as of this encounter Visit Diagnoses Diagnosis Staphylococcal arthritis of right knee Pyogenic arthritis, lower leg MRSA infection Methicillin resistant Staphylococcus aur eus in conditions classified elsewhere and of unspecified site nursing home current use of antibiotics Encounter for long-term (current) use of antibiotics documented in this encounter Care Teams Medicare Compliance Auditor Relationship Specialty Start Date End Date Adelita Munguia APRN PCP - General Family Medicine 8/6/[address] [place] [address] documented as of this encounter
--- OUTSIDE RECORDS SUMMARY | 2021-10-21 02:03 | XMS_ITS | Encounter Summary ---
:1975 Author Organization [facility] [place] [address] Care Team Providers Name Role Phone Adelita Munguia APRN Primary Care Provider Encounter Details Date Type Department Care Team Description 06/27/2021 Telephone Rheumatology at [facility] [place] [address] Social History Tobacco Use Types Packs/Day Years Used Date Current Every Day Smoker Cigarettes 0.25 Smokeless Tobacco: Never Used Sex Assigned at Date Recorded Not on file documented as of this encounter Miscellaneous Notes Telephone Encounter - Teena Clark RN - 06/27/2021 1:16 PM EST Aicha calls to discuss her Lab results with her provider. Labs in chart. Sadaf Bridges MD sent to Teena Clark RN Caller: Unspecified (2 days ago, ??9:50 AM) Called home and mobile--home has unidentified machine so no message left and mobile has a voicemail that was not established. documented in this encounter Plan of Treatment Upcoming Encounters Date Type Specialty Care Team Description 01/25/2022 Office Visit Rheumatology Sadaf Bridges MD [facility] DR RHEUMATOLOGY [place], [place] [address] (Wo rk) documented as of this encounter Visit Diagnoses Not on filedocumented in this encounter Care Teams Neighborhood Aide Relationship Specialty Start Date End Date Adelita Munguia APRN PCP - General Family Medicine 12/03/[address] [place] [address] documented as of this encounter
--- OUTSIDE RECORDS SUMMARY | 2021-10-21 02:03 | XMS_ITS | Encounter Summary ---
:1975 Author Organization [facility] [place] [address] Care Team Providers Name Role Phone Adelita Munguia APRN Primary Care Provider Encounter Details Date Type Department Care Team Description 08/11/2021 Telephone Rheumatology [place] [facility] [place] [address] Social History Tobacco Use Types Packs/Day Years Used Date Current Every Day Smoker Cigarettes 0.25 Smokeless Tobacco: Never Used Sex Assigned at Date Recorded Not on file documented as of this encounter Miscellaneous Notes Telephone Encounter - Ingrid Simms - 08/11/2021 12:51 PM EDT Lm for pt to call and reschedule missed appt. Sending letter documented in this encounter Plan of Treatment Upcoming Encounters Date Type Specialty Care Team Description 01/25/2022 Office Visit Rheumatology Sadaf Bridges MD [facility] DR RHEUMATOLOGY [place], [place] [address] (Wo rk) documented as of this encounter Visit Diagnoses Not on filedocumented in this encounter Care Teams Trash Collector Relationship Specialty Start Date End Date Adelita Munguia APRN PCP - General Family Medicine 12/03/[address] [place], [place] [id number] documented as of this encounter
--- OUTSIDE RECORDS SUMMARY | 2021-10-21 02:03 | XMS_ITS | Encounter Summary ---
:1975 Author Organization [facility] [place] [address] Care Team Providers Name Role Phone Adelita Munguia MATT Primary Care Provider Encounter Details Date Type Department Care Team Description 09/20/2021 Office Visit Rheumatology at [facility] Sadaf Bridges High risk medication use; [facility] MD Juan Rheumatoid arthritis with rheumatoid fac tor, [place] [address] CENTER [phone] RHEUMATOLOGY DEPT. [place], [place] [address] Social History Tobacco Use Types Packs/Day Years Used Date Current Every Day Smoker Cigarettes 0.25 Smokeless Tobacco: Never Used Sex Assigned at Date Recorded Not on file documented as of this encounter Progress Notes Sadaf Bridges MD - 09/20/2021 10:00 AM EDT Seropositive RA on MTX and injection of steroids. Roomed by . Cc: shoulder stiffness HPI: She has had stiffness in the left shoudler for 10 days. Mostly her hands, shoudlers, neck and feet. Way better than she was a year ago. She has had some difficulty with the budget. She is avoidingfoods. She made a small hike. No increased swellig or warmth in the knees. She went off of MTX due to ALT 103, back onto celebrex. She notices if she does not take celebrex. No infections, no more swelling in the knees. Past: Takes MTX on Sunday. Has about 4 days of feelingbetter. + emotional lability. The swelling has come down. She had a huge difference the first time she took it. She is working [employer]--a couple leg cramps. She stopped lions laurent, Some home mademaple syrup. She has [...] without improvement. About one year later in [facility] about September 2020. Aspiration--cloudy red fluid with [...] hands. She was startedon celebrex-helped initially. 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 Last two weeks. She was also taking bromalin and has questions about this. She has a rash on her arms chest abdomen and across shoulders. Comes and goes throughout treatment. Occ itchy. Her hands and feet get cold. Small scabbed picked lesions. 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 Alert and pleasant, clearly swollen joints and associated decreased mobility-better Skin: rash looks better Sclera anicteric, conjunctiva not injected MS: neck and spine: decreased ROM at neck Shoulders: near FROM active ROM, but + impingement, no swelling Elbows: tender B Wrists: better, mild thickening Hands: sometightness inhands, can make fist-improved but still with active synovitis throughout: R knee visible larger than left, [...] CRP 47 Impression/Recommendations: Is a very pleasant 46-year-old woman presented with a 2-month history ofpolyarticular predominantly symmetric small joint markedly inflammatory arthritis with negative anti-CCP and positive rheumatoid factor. This arose in the setting of treatment for a right knee septic arthritis that was PCR positive for staph aureus and enterococci with daptomycin. She has now completed treatment for the right knee septic arthritis and that is much better. This could be a version of reactive arthritis but the presentation is more consistent with rheumatoid at this time. Would proceedto treat as RA and follow- up on positive DASHA as well--no c/w SLE--although she has a rash. Started with IM triamcinalone 40mg and MTX 10mg weekly--tolerating, and clinically improved, but elevated LFTson MTX to ALT of 105 so stopped, still not in remission but better than she was a year ago. Overall she prefers to use naturopathic and supplements. But not in remission--will trial [id number] daily with medrol taper leflunomide 10mg daily Medrol taper 16mg Check safety labs in one month Follow up in 3 months Orders Placed This Encounter Procedures ??? CBC (with Diff) ??? Comprehensive metabolic panel (non-fasting) ??? Sedimentation rate ??? Sedimentation rate ??? Comprehensive metabolic panel (non-fasting) ??? CBC (with Diff) ??? CRP, acute inflammation ??? Hemogram ??? Differential, Automated documented in this encounter Plan of Treatment Upcoming Encounters Date Type Specialty Care Team Description 01/25/2022 Office Visit Rheumatology Sadaf Bridges MD [facility] DR [facility] [place] [address] (Wo rk) Scheduled Orders Name Type Priority Associated Diagnoses Order S chedule CBC (with Diff) Lab Routine High risk medication Expe cted: 09/20/2021 use (Approximate), Expires: Rheumatoid arthritis 023 with rheumatoid factor, unspecified Comprehensive metabolic Lab Routine High risk medicat ion Expected: 09/20/2021, panel (non-fasting) use Expires: 09/21/2022 Rheumatoid arthritis with rheumatoid factor, unspecified Sedimentation rate Lab Routine High risk medication E xpected: 09/20/2021, use Expires: 09/21/2022 Rheumatoid arthritis with rheumatoid factor, unspecified Sedimentation rate Lab Routine High risk medication E very 12 Weeks for 4 use Occurrences starting Rheumatoid arthritis 022 until with rheumatoid factor, 08/29 unspecified Comprehensive metabolic Lab Routine High risk medicat ion Every 12 Weeks for 4 panel (non-fasting) use Occurrences starting Rheumatoid arthritis 022 until with rheumatoid factor, 08/29 unspecified CBC (with Diff) Lab Routine High risk medication Ever y 12 Weeks for 4 use Occurrences starting Rheumatoid arthritis 022 until with rheumatoid factor, 08/29 unspecified CRP, acute inflammation Lab Routine High risk medicat ion Every 12 Weeks for 4 use Occurrences starting Rheumatoid arthritis 022 until with rheumatoid factor, 08/29 unspecified documented as of this encounter Procedures Procedure Name Priority Date/Time Associated Comments Diagnosis HC C-REACTIVE PROTEIN Routine 09/20/2021 11:01 High risk Re sults for this AM EDT medication use procedure are in the results section. HEMOGRAM Routine 09/20/2021 11:01 Rheumatoid Results for this AM EDT arthritis with procedure are in rheumatoid factor, the resul ts unspecified section. High risk medication use DIFFERENTIAL, Routine 09/20/2021 11:01 Rheumatoid Results fo r this AUTOMATED AM EDT arthritis with procedure are in rheumatoid factor, the resul ts unspecified section. High risk medication use HC ESR-SEDIMENTATION Routine 09/20/2021 11:01 High risk Res ults for this RATE, BLOOD AM EDT medication use procedure are in the results section. HC CBC,PLT & AUTO DIFF Routine 09/20/2021 11:01 Rheumatoid AM EDT arthritis with rheumatoid factor, unspecified High risk medication use HC CREATINE Routine 09/20/2021 11:01 High risk Results for this PHOSPHOKINASE, SERUM AM EDT medication use proce dure are in the results section. COMPREHENSIVE Routine 09/20/2021 11:01 Rheumatoid Results fo r this METABOLIC PANEL AM EDT arthritis with procedure are in (NON-FASTING) rheumatoid factor, the resu lts unspecified section. High risk medication use documented in this encounter Results (ABNORMAL) Differential, Automated (09/20/2021 11:01 AM EDT) [facility] gist Method Time Signature Neutrophils % 70.0 % [facility] Neutr Abs (ANC) 10.84 (H) 1.70 - [facility] 6.10 [facility] x10(3)/[facility] LABORATORY Lymphocytes % 21.0 % [facility] Lymphocytes Abs 3.2 0.9 - 3.2 [facility] x10(3)/[facility] LABORATORY Monocytes % 6.4 % [facility] Monocyte Abs 1.0 (H) 0.3 - 0.9 [facility] x10(3)/[facility] LABORATORY Eosinophils % 1.3 % [facility] Eosinophils Abs 0.2 0.0 - 0.4 [facility] x10(3)/[facility] LABORATORY Basophils % 0.8 % [facility] Basophils Abs 0.1 0.0 - 0.1 [facility] x10(3)/[facility] LABORATORY Immature Gran % 0.50 % [facility] Comment: Immature granulocytes(IG's)percentage an d absolute count will include metamyelocytes, myelocytes, and promyelo cytes. Blood smears from CBCs yielding IG's will be scanned manually for concamina danguerline. If this scan disagrees with the automated IG or if promyelocytes are not ed, a manual differential will be performed. Akila Gran Abs 0.08 (H) 0.00 - 0.04 x10(3)/[facility] LABORATORY Specimen Anatomical Collection Method Collection Time Receive d Time (Source) Location / / Volume Laterality Blood 09/20/2021 11:01 09/20/2021 AM EDT 11:17 AM EDT Resulting Agency Comment Spec In Lab Sadaf Bridges MD HEMATOLOGY ORDERABLES Performing Organization Address City/State/[place] [address] (ABNORMAL) Hemogram (09/20/2021 11:01 AM EDT) Analysis Performed At Patho logist Time Signature WBC 15.5 (H) 4.0 - 9.5 [facility] x10(3)/[facility] LABORATORY RBC 4.68 4.00 - [facility].21 [facility] x10(6)/[facility] LABORATORY Hemoglobin 13.2 11.7 - [facility] 15.5 g/dL [facility] Hematocrit 40.9 35.7 - [facility] 45.8 % [facility] MCV 87.4 82.6 - [facility] 94.4 [facility] LABORATORY MCH 28.2 27.1 - [facility] 32.0 pg [facility] MCHC 32.3 31.7 - [facility] 35.0 g/dL [facility] Platelets 551 (H) 145 - 357 [facility] x10(3)/[facility] LABORATORY RDWSD 41.4 37.0 - [facility] MADISYN 46.0 [facility] LABORATORY RDWCV 12.9 11.5 - [facility] MADISYN 14.1 % [facility] MPV 9.3 7.6 - 12.9 [facility] LABORATORY nRBC % Auto 0.0 % [facility] nRBC Abs Auto 0.000 0.000 - [facility] MADISYN 0.000 [facility] x10(3)/[facility] LABORATORY Specimen Anatomical Collection Method Collection Time Receive d Time (Source) Location / / Volume Laterality Blood 09/20/2021 11:01 09/20/2021 AM EDT 11:17 AM EDT Resulting Agency Comment Spec In Lab Sadaf Bridges MD HEMATOLOGY ORDERABLES Performing Organization Address City/[facility]/[place] [address] (ABNORMAL) CRP, acute inflammation (09/20/2021 11:01 AM EDT) P athologist Signature CRP 18.2 (H) <=4.9 mg/L [facility] Specimen Anatomical Collection Method Collection Time Receive d Time (Source) Location / / Volume Laterality Blood 09/20/2021 11:01 09/20/2021 AM EDT 11:17 AM EDT Resulting Agency Comment Spec In Lab Sadaf Bridges MD CHEMISTRY ORDERABLES Performing Organization Address City/[facility]/[place] [address] CK (09/20/2021 11:01 AM EDT) P athologist Signature CK, Total 42 0 - 160 [facility] unit/L [facility] Specimen Anatomical Collection Method Collection Time Receive d Time (Source) Location / / Volume Laterality Blood 09/20/2021 11:01 09/20/2021 AM EDT 11:17 AM EDT Resulting Agency Comment Spec In Lab Sadaf Bridges MD CHEMISTRY ORDERABLES Performing Organization Address City/[facility]/ZIP [facility] [place] [address] (ABNORMAL) Sedimentation rate (09/20/2021 11:01 AM EDT) P athologist Signature Sed Rate 67 (H) 2 - 37 [facility] mm/hr [facility] Comment: Effective April 09, 2019 [...] Organization Address City/State/[place] [address] (ABNORMAL) Comprehensive metabolic panel (non-fasting) (09/20/2021 11:01 AM EDT) P athologist Signature Glucose Lvl 88 65 - 199 [facility] mg/dL [facility] Comment: Diabetes: >=200 mg/dL plus symp toms BUN 15 8 - 18 mg/dL [facility] Creatinine 0.59 (L) 0.70 - 1.20 mg/dL [facility] Sodium 139 135 - 145 mmol/L [facility] Potassium 4.1 3.5 - 5.0 mmol/L [facility] Comment: Please note: ??Patients with WBC >100,00 0 may have falsely elevated Potassium levels. ??For accurate Potassium quantif ication in these patients send serum separator tube (gold top) for subsequent determinations. ??Contact the Clinical Chemistry Laboratory if there are any qu estions. Chloride 105 98 - 107 mmol/L [facility] CO2 22 22 - 31 mmol/L [facility] Anion Gap 12 5 - 15 mmol/L [facility] Calcium 9.7 8.5 - 10.5 mg/dL [facility] Total Protein 7.6 6.1 - 8.0 g/dL [facility] Albumin 4.3 3.2 - 5.2 g/dL [facility] AST 15 0 - 30 unit/L [facility] ALT 14 0 - 30 unit/L [facility] Alk Phos 99 35 - 105 unit/L [facility] Total Bilirubin 0.4 0.2 - 1.3 mg/dL [facility] Estimated GFR 109 >=60 mL/min/1.73 m?? [facility] Comment: This patient? s estimated glomerular [...] Organization Address City/State/[place] [address] documented in this encounter Visit Diagnoses Diagnosis High risk medication use Encounter for long-term (current) use of other medications Rheumatoid arthritis with rheumatoid fac tor, unspecified documented in this encounter Care Teams Exercise Equipment Repair Technician Relationship Specialty Start Date End Date Adelita Munguia, WASTE HANDLING TECHNICIAN PCP - General Family Medicine 12/03/[address] [place] [address] documented as of this encounter
--- OUTSIDE RECORDS SUMMARY | 2021-10-21 02:03 | XMS_ITS | Encounter Summary ---
:1975 Author Organization [facility] [place] [address] Care Team Providers Name Role Phone Adelita Munguia MATT Primary Care Provider Encounter Details Date Type Department Care Team Description 12/15/2020 Notes Only Infectious Disease a t [facility] Cyn Ortega, [place] [address] Social History Tobacco Use Types Packs/Day Years Used Date Current Every Day Smoker Cigarettes 0.25 Smokeless Tobacco: Never Used Sex Assigned at Date Recorded Not on file documented as of this encounter Progress Notes Cyn Ortega, RN - 12/15/2020 3:24 PM EDT Infectious Disease OPAT program Faxed to [facility] on 12/15 at 1520 Fax confirmation on 12/15 at 1521 Document(s) faxed: CMP & CK Faxed to [facility] on 12/16 at 0819 Fax confirmation on 12/16 at 0820 left for TERRI Nam. During our conversation this morning she did not perceive any barriers to them starting care for the patient this week. Document(s) faxed: Demographics Allergy & Med list VNA order VNA choice note OPAT order Referring provider note (scanned report of Ortho note from [facility]) ID clinic note 12/14 (MD Corin Marcus) documented in this encounter Plan of Treatment Upcoming Encounters Date Type Specialty Care Team Description 01/25/2022 Office Visit Rheumatology Sadaf Bridges MD [facility] DR RHEUMATOLOGY [place]P [place], [place] [address] (Wo rk) documented as of this encounter Visit Diagnoses Not on filedocumented in this encounter Care Teams Director Of Guidance Relationship Specialty Start Date End Date Adelita Munguia APRN PCP - General Family Medicine 12/03/[address] [place] [address] documented as of this encounter
--- OUTSIDE RECORDS SUMMARY | 2021-10-21 02:03 | XMS_ITS | Encounter Summary ---
:1975 Author Organization [facility] [place] [address] Care Team Providers Name Role Phone Adelita Munguia APRN Primary Care Provider Encounter Details Date Type Department Care Team Description 01/04/2021 Orders Only Infectious Disease at [facility] aphylococcal arthritis of right knee; [facility] [place] Iker MRSA infection; 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 [facility] [address] [place], [place]FECT[place]OUS [address] DISEASE [phone] [place] [id number] Social History Tobacco Use Types Packs/Day Years Used Date Current Every Day Smoker Cigarettes 0.25 Smokeless Tobacco: Never Used Sex Assigned at Date Recorded Not on file documented as of this encounter Plan of Treatment Upcoming Encounters Date Type Specialty Care Team Description 01/25/2022 Office Visit Rheumatology Sadaf Bridges MD [facility] DR RHEUMATOLOGY [place], [place] [address] (Wo rk) documented as of this encounter Visit Diagnoses Diagnosis 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
--- OUTSIDE RECORDS SUMMARY | 2021-10-21 02:03 | XMS_ITS | Encounter Summary ---
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 [facility] [address] [place], [place] INF[place]OUS [id number] DISEASE [phone] [place], [place] [address] Social History Tobacco Use Types Packs/Day Years Used Date Current Every Day Smoker Cigarettes 0.25 Smokeless Tobacco: Never Used Sex Assigned at Date Recorded Not on file documented as of this encounter Plan of Treatment Upcoming Encounters Date Type Specialty Care Team Description 01/25/2022 Office Visit Rheumatology Sadaf Bridges MD [facility] DR RHEUMATOLOGY [place], [place] [address] (Wo rk) documented as of this encounter Visit Diagnoses Diagnosis Staphylococcal arthritis of right knee Pyogenic arthritis, lower leg 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
--- OUTSIDE RECORDS SUMMARY | 2021-10-21 02:03 | XMS_ITS | Encounter Summary ---
:1975 Author Organization [facility] [place] [address] Care Team Providers Name Role Phone Adelita Munguia Juan GUTIERREZ Primary Care Provider Reason for Visit Reason Onset Date Comments Vaginal Bleeding 05/25/2021 Encounter Details Date Type Department Care Team Description 05/25/2021 Telephone Rheumatology at [facility] Teena Clark [place] [address] Social History Tobacco Use Types Packs/Day Years Used Date Current Every Day Smoker Cigarettes 0.25 Smokeless Tobacco: Never Used Sex Assigned at Date Recorded Not on file documented as of this encounter Miscellaneous Notes Telephone Encounter - Ingrid Simms - 06/03/2021 8:51 AM EST Patient calls to ask if her lab results have been received and if she can start her medication again. She states she is going to work at 1130 and asks for a call back Telephone Encounter - Teena Clark RN - 05/27/2021 4:06 PM EST Aicha calls back to ask if she should continue holding Celebrex and for how long. LM advisingHold Celebrex until we have lab results back and may use OTC Tylenol if needed. Telephone Encounter - Teena Clark RN - 05/25/2021 5:02 PM EST Aicha calls to advise Dr. Bridges that she is having some light Vaginal bleeding and thought she would like to know. RTC to Aicha, LM to RTC to nurse. Aicha calls back and states she stopped the Celebrex and would like a RTC. RTC and Aicha states she has gone through 8 panti-liners since yesterday. States she has not contacted her PCP and does not have INTERNIST person that she has recently seen. Denies any recent vaginal exams. Was offended by me asking questions so I advised to continue to hold the Celebrex and I will ask her provider for recommendations on what she should do. States she called here because we monitor her medications. Message ----- From: Sadaf Bridges MD Sent: 05/26/2021 ?? 2:05 PM EST To: Teena Clark RN Would not be likely to be from RA meds, but I put in labs to check her cell counts. I spoke with Aicha and she would like labs done at [facility], she will let us know when labs have been completed. documented in this encounter Plan of Treatment Upcoming Encounters Date Type Specialty Care Team Description 01/25/2022 Office Visit Rheumatology Sadaf Bridges MD [facility] DR RHEUMATOLOGY [place], [place] [address] (Wo rk) documented as of this encounter Visit Diagnoses Not on filedocumented in this encounter Care Teams Developmental Training Counselor Relationship Specialty Start Date End Date Adelita Munguia APRN PCP - General Family Medicine 12/03/[address] [place] [address] documented as of this encounter
--- OUTSIDE RECORDS SUMMARY | 2021-10-21 02:03 | XMS_ITS | Encounter Summary ---
:1975 Author Organization [facility] [place] [address] Care Team Providers Name Role Phone Adelita Munguia MATT Primary Care Provider Encounter Details Date Type Department Care Team Description 05/26/2021 Orders Only Rheumatology at [facility] Sadaf Bridges, Rheumatoid arthritis with rh eumatoid factor, unspecified; [facility] High [place] [address] RHEUMATOLOGY DEP [place], [place] [address] Social History Tobacco Use Types Packs/Day Years Used Date Current Every Day Smoker Cigarettes 0.25 Smokeless Tobacco: Never Used Sex Assigned at Date Recorded Not on file documented as of this encounter Plan of Treatment Upcoming Encounters Date Type Specialty Care Team Description 01/25/2022 Office Visit Rheumatology Sadaf Bridges MD [facility] RHEUMATOLOGY DEP [place], [place] [address] (Wo rk) documented as of this encounter Results (ABNORMAL) Comprehensive metabolic panel (non-fasting) (09/20/2021 11:01 AM EDT) athologist Signature Glucose Lvl 88 65 - 199 [facility] mg/dL [facility] Comment: Diabetes: >=200 mg/dL plus symp toms BUN 15 8 - 18 mg/dL [facility] Creatinine 0.59 (L) 0.70 - 1.20 mg/dL [facility] Sodium 139 135 - 145 mmol/L [facility] Potassium 4.1 3.5 - 5.0 mmol/L [facility] Comment: Please note: ??Patients with WBC >100,00 0 may have falsely elevated Potassium levels. ??For accurate Potassium quantif ication in these patients send serum separator tube (gold top) for subsequent determinations. ??Contact the Clinical Chemistry Laboratory if there are any qu estions. Chloride 105 98 - 107 mmol/L [facility] CO2 22 22 - 31 mmol/L [facility] Anion Gap 12 5 - 15 mmol/L [facility] Calcium 9.7 8.5 - 10.5 mg/dL [facility] Total Protein 7.6 6.1 - 8.0 g/dL [facility] Albumin 4.3 3.2 - 5.2 g/dL [facility] AST 15 0 - 30 unit/L [facility] ALT 14 0 - 30 unit/L [facility] Alk Phos 99 35 - 105 unit/L [facility] Total Bilirubin 0.4 0.2 - 1.3 mg/dL [facility] Estimated GFR 109 >=60 mL/min/1.73 m?? [facility] Comment: This patient? s estimated [...] Organization Address City/State/[place] [address] documented in this encounter Visit Diagnoses Diagnosis Rheumatoid arthritis with rheumatoid fac tor, unspecified High risk medication use Encounter for long-term (current) use of other medications documented in this encounter Care Teams Inspector Screen Printing Relationship Specialty Start Date End Date Adelita Munguia, REHABILITATION MEDICINE PHYSICIAN PCP - General Family Medicine 12/03/[address] [place] [address] documented as of this encounter
--- OUTSIDE RECORDS SUMMARY | 2021-10-21 02:03 | XMS_ITS | Encounter Summary ---
:1975 Author Organization [facility] [address] Care Team Providers Name Role Phone Adelita Munguia Juan GUTIERREZ Primary Care Provider Encounter Details Date Type Department Care Team Description 03/25/2021 Orders Only Rheumatology at [facility] Sadaf Bridges, Rheumatoid arthritis with rh eumatoid factor, unspecified; [facility] High [place] [address] RHEUMATOLOGY DEP [place], [place] [address] Social History Tobacco Use Types Packs/Day Years Used Date Current Every Day Smoker Cigarettes 0.25 Smokeless Tobacco: Never Used Sex Assigned at Date Recorded Not on file documented as of this encounter Plan of Treatment Upcoming Encounters Date Type Specialty Care Team Description 01/25/2022 Office Visit Rheumatology Sadaf Bridges MD [facility] RHEUMATOLOGY DEP [place], [place] [address] (Wo rk) Scheduled Orders Name Type Priority Associated Diagnoses Order S chedule Sedimentation rate Lab Routine Rheumatoid arthritis E very three months for with rheumatoid 4 Occurrence s starting factor, unspecif ied 03/25/2021 until High risk medication use Comprehensive metabolic Lab Routine Rheumatoid arthri tis Every three months for panel (non-fasting) with rheumatoid 4 Occ urrences starting factor, unspecif ied 03/25/2021 until High risk medication use CBC (with Diff) Lab Routine Rheumatoid arthritis Ever y three months for with rheumatoid 4 Occurrence s starting factor, unspecif ied 03/25/2021 until High risk medication use CRP, acute inflammation Lab Routine Rheumatoid arthri tis Every 3 months for 4 with rheumatoid Occurrences starting factor, unspecif ied 03/25/2021 until High risk medication use documented as of this encounter Visit Diagnoses Diagnosis Rheumatoid arthritis with rheumatoid fac tor, unspecified High risk medication use Encounter for long-term (current) use of other medications documented in this encounter Care Teams Reconciler Relationship Specialty Start Date End Date Adelita Munguia APRN PCP - General Family Medicine 12/03/[address] [place] [address] documented as of this encounter
--- OUTSIDE RECORDS SUMMARY | 2021-10-21 02:03 | XMS_ITS | Encounter Summary ---
:1975 Author Organization [facility] [place] [address] Care Team Providers Name Role Phone Adelita Munguia MATT Primary Care Provider Reason for Visit Reason Onset Date Comments Other 08/03/2021 Tested Covid + on 08/02/21 - OV appointment cancelled due to illness Encounter Details Date Type Department Care Team Description 08/03/2021 Telephone Rheumatology at [facility] Jeannette Durán Other (Tested Covid + [facility] Meenu Leslie RN on Sunday08/02/[place] [address] appointment cancelled [phone] due to illness) Social History Tobacco Use Types Packs/Day Years Used Date Current Every Day Smoker Cigarettes 0.25 Smokeless Tobacco: Never Used Sex Assigned at Date Recorded Not on file documented as of this encounter Miscellaneous Notes Telephone Encounter - Jeannette Durán RN - 08/03/2021 1:58 PM EDT TC from Aicha - Reported that she tested positive for Covid-19 on Sunday08/02/21 - Was scheduled for an office visit that day, but was cancelled due to illness. Not rescheduled yet. Continues to take Celebrex. - asking if that is okay with her + Covid 19 test. Also taking Vitamin D2000 iu twice a day. No Methotrexate since April. Pain is managed fairly well with Celebrex. I just have some swellingin my hands and some shoulder pain. Requested clarification of Celebrex use with + Covid-19, and when she should schedule a follow up since her appointment had to be cancelled. Request communicated to Dr Bridges via In Basket. documented in this encounter Plan of Treatment Upcoming Encounters Date Type Specialty Care Team Description 01/25/2022 Office Visit Rheumatology Sadaf Bridges MD [facility] [address] RHEUMATOLOGY [place], [place] [address] (Wo rk) documented as of this encounter Visit Diagnoses Not on filedocumented in this encounter Care Teams Double Spindle Shaper Operator Relationship Specialty Start Date End Date Adelita Munguia APRN PCP - General Family Medicine 12/03/[address] [place], [place] [address] documented as of this encounter
--- OUTSIDE RECORDS SUMMARY | 2021-10-21 02:04 | XMS_ITS | Encounter Summary ---
:1975 Author Organization [facility] [place] [address] Care Team Providers Name Role Phone Adelita Munguia APRN Primary Care Provider Encounter Details Date Type Department Care Team Description 12/06/2020 Telephone Infectious Disease a deisy [facility] [place] [address] Social History Tobacco Use Types Packs/Day Years Used Date Never Assessed Sex Assigned at Date Recorded Not on file documented as of this encounter Plan of Treatment Upcoming Encounters Date Type Specialty Care Team Description 01/25/2022 Office Visit Rheumatology Sadaf Bridges MD [facility] ER DR RHEUMATOLOGY [place], [place] [address] (Wo rk) documented as of this encounter Visit Diagnoses Not on filedocumented in this encounter Care Teams Equine Internship Relationship Specialty Start Date End Date Adelita Munguia APRN PCP - General Family Medicine 12/03/[address] [place] [address] documented as of this encounter
--- OUTSIDE RECORDS SUMMARY | 2021-10-21 02:04 | XMS_ITS | Encounter Summary ---
:1975 Author Organization [facility] [address] Care Team Providers Name Role Phone Adelita Munguia Juan GUTIERREZ Primary Care Provider Reason for Visit Consultation (Urgent) - Closed Specialty Diagnoses / Procedures Referred By Contact Refer red To Contact Infectious Diseases Diagnoses INFLAMMATION R KNEE, EFFUSION, INFECTION, SYNOVIAL BX + FOR MRSA Robert Blake MD [place], Antonia L, [address] DO [facility] [address] INFECTIOUS DISEASE [place] [id number] Phone: Fax: Referral ID Status Reason Start Date Expiration Date Visits V isits Requested Authorized [id number] Closed Consult, Test 12/03/2020 12/03/2021 [facility] PCP Updated and/or Approved Encounter Details Date Type Department Care Team Description 12/13/2020 Office Visit Infectious Disease Corin Sloan Staphy lococcal arthritis of right knee; at [facility] MD Lianna Status post arthroscopy of right knee; [facility] Increased body mass index (BMI) [facility] [place] INFECTIOUS [address] DISEASE [phone] [place] [address] Social History Tobacco Use Types Packs/Day Years Used Date Current Every Day Smoker Cigarettes 0.25 Smokeless Tobacco: Never Used Sex Assigned at Date Recorded Not on file documented as of this encounter Last Filed Vital Signs Vital Sign Reading Time Taken Comments Blood Pressure 134/78 12/13/2020 1:54 PM EDT Pulse 61 12/13/2020 1:54 PM EDT Temperature 35.9 ??C (96.6 ??F) 12/13/2020 1:54 PM EDT Respiratory Rate 18 12/13/2020 1:54 PM EDT Oxygen Saturation 100% 12/13/2020 1:54 PM EDT Inhaled Oxygen Concentration - - Weight 97.3 kg (214 lb 9.6 oz) 12/13/2020 1:54 PM EDT Height 172.7 cm (5' 8) 12/13/2020 1:54 PM EDT Body Mass Index 32.63 12/13/2020 1:54 PM EDT documented in this encounter Progress Notes Corin Sloan MD - 12/13/2020 2:00 PM EDT Infectious Disease Clinic - New Outpatient Visit Reason for Consult: We are being asked to see Aicha Perez at the request of for evaluation of Robert Blake MD [address] [place] [address] HPI: Aicha Perez is a 45 y.o. 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 Aicha injured her right knee in April of 2019 and at that time required arthroscopy which was followed by a period of little response despite PT. She continued to complain of swollen knee with rednessand limited mobility. She eventually sought second opinion at [place] [address] WBCs and 84% PMNs, and no growth on cultures. MRI of her knee demonstrated severe synovitis and tricompartmental cartilage destruction. The subcartilaginous area showed evidence of osteonecrosisof the knee. She underwent revisit arthroscopy in October 2020 which showed extensive destruction of the joint space and evidence of inflammation. Cell count showed 83864 WBCs and 82% PMNs. Alpha defensinwas positive and no crystals were seen. More interestingly, the PCR panel was positive for staph aureus and enterococci but no organisms grew (all done at outside lab [facility] in [place]). Pathology ofthe synovium specimen showed chronic inflammation and notable plasma cell infiltration. The synovium specimen culture grew MRSA and while we don't have this lab result, I called the micro lab at [facility] and they verbally confirmed the result. We are now awaiting them to fax us the report and the sensitivity. The patient feels well systematically and denies ever experiencing fever or chils. She also notes that her knee mobility, ROM and swelling have all improved since her last arthroscopy and is now able to raise her extended knee to some extent. She denies ever having any problem with her arthroscopy port sites healing and never noticed any drainage from them. 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 FH: No immunocompromising conditions or h/o infection ROS: Review of Systems - Negative except what is mentioned in HPI Physical Exam: General in [facility] Neuro A&O x 3. Grossly non focal Eyes PERRLA, EOMI, no scleral/conjunctival injection or icterus. Heart RRR, no murmurs, rubs, gallops. Lungs CTAB without wheezes, rhonchi, rales. Abdomen Soft, nontender, nondistended. Ext Right knee swollen compared to left, no erythema or tenderness, limited passive ROM. Healed arthroscopy ports. Other joints intact. Skin No skin lesions noted. Labs: Discussed in HPI Imaging: MRI discussed in HPI Assessment/Plan: Aicha Perez is a 45 y.o. 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 She had clinical and radiological deterioration of her knee after the first arthroscopy off antibiotics and without exhibiting systemic symptoms suggestive of septic arthritis. Nevertheless, arthroscopy and arthrocentesis findings are highly discordant. She has positive growth of MRSA from the synovium yet no purulence described in arthroscopy and rather low WBC count compared to what is expected in MRSA septic arthritis. Even more puzzling is the absence of growth from the synovial fluid from arthrocentesis and then from the sample sent to the [facility] lab despite PCR showing evidence of staph aureus and enterococci. She continues to improve and clinically she does not exhibit signs or symptoms suggestive of ongoingMRSA mentasta joint septic arthritis. That being said, she is planned for a two staged knee replacement as the joint is deemed unsalvageable by . with MRSA roing from the synovium , even in absence of classic septic arthritis picture, one would be very reluctant not to treat. We discussed this conundrum with Aicha at length and offered treating with a four weeks course of a pathogen-specific antibiotic (in her case likely Daptomycin) and she opted for treatment if the culture at [facility] are confirmed as MRSA. I called the hospital today and they verbally confirmed the result to me as growingMRSA. We will plan to engage our OPAT team and treat for 4 weeks with Daptomycin 8 mg/kg = 600 mg IV q 24 hrs. She will need PICC line placement and baseline CMP and CK before commencing therapy. Case and plan of care discussed with Dr.Kershaw Corin Dsouza. MD Nathalia Clinical Fellow Infectious Disease Corin Sloan MD - 12/13/2020 2:00 PM EDT OPAT INTAKE: Diagnosis: [place] joint septic arthritis, Organism(s): MRSA, Antibiotic(s) being taken: Daptomycin (8 mg/kg (adjusted weight)= 600 mg IV Q 24 hrs) With a start date of 12/17/2020, and anticipated end date of 01/14/2021. Desired labs: CBC w/diff, CMP, CRP and CPK. Desired timing of end of therapy appointment: Week of: 01/10/2021. Other speciality appointments to coordinate with: No Dialysis patient?: No Imaging needed?: No Michelle Carney MD - 12/13/2020 2:00 PM EDT I have seen the patient and reviewed the history and physical and I agree with the details as written by Dr. Sloan. The assessment and plan were formulated in discussion with me and I agree with them as documented. Michelle Carney MD Infectious Disease documented in this encounter Plan of Treatment Upcoming Encounters Date Type Specialty Care Team Description 01/25/2022 Office Visit Rheumatology Sadaf Bridges MD [facility] DR RHEUMATOLOGY [place], [place] [address] (Wo rk) documented as of this encounter Visit Diagnoses Diagnosis Staphylococcal arthritis of right knee Pyogenic arthritis, lower leg Status post arthroscopy of right knee Other postprocedural status Increased body mass index (BMI) documented in this encounter Care Teams Drilling And Production Superintendent Relationship Specialty Start Date End Date Adelita Munguia, WAISTBAND SETTER PCP - General Family Medicine 12/03/[address] [place] [address] documented as of this encounter
--- OUTSIDE RECORDS SUMMARY | 2021-10-21 02:04 | XMS_ITS | Encounter Summary ---
:1975 Author Organization [place] [address] Care Team Providers Name Role Phone Ezra Adelita Juan GUTIERREZ Primary Care Provider Reason for Referral Home Health Care (Routine) - Closed Specialty Diagnoses / Procedures Referred By Contact Refer red To Contact Unknown Specialty Diagnoses Staphylococcal arthritis of right knee senior care current use of antibiotics Michelle Carney MD [facility] [place] [address] Referral ID Status Reason Start Date Expiration Visits Visits Date Requested Authorized [id number] Closed Continuity of 12/15/2020 06/13/2021 1 1 Care Consultation (Routine) - Closed Specialty Diagnoses / Procedures Referred By Contact Refer red To Contact Infectious Diseases Diagnoses Staphylococcal arthritis of right knee 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 Michelle Carney, Michelle Carney MD MD [facility] [place] [address] [place] [address] Phone: Fax: Referral ID Status Reason Start Date Expiration Date Visits V isits Requested Authorized [id number] Closed Assume 12/15/2020 12/15/2021 1 1 Subset of Care Encounter Details Date Type Department Care Team Description 12/15/2020 Orders Only Infectious Disease at Michelle Carney aphylococcal arthritis of right knee; [facility] MD [place] senior care current use of antibiotics [facility] [address] [place] [id number] DISEASE [phone] [place], [place] [address] Social History Tobacco Use Types Packs/Day Years Used Date Current Every Day Smoker Cigarettes 0.25 Smokeless Tobacco: Never Used Sex Assigned at Date Recorded Not on file documented as of this encounter Plan of Treatment Upcoming Encounters Date Type Specialty Care Team Description 01/25/2022 Office Visit Rheumatology Sadaf Bridges MD [facility] DR RHEUMATOLOGY DEP . 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
--- OUTSIDE RECORDS SUMMARY | 2021-10-21 02:04 | XMS_ITS | Encounter Summary ---
:1975 Author Organization [facility] [place] [address] Care Team Providers Name Role Phone Adelita Munguia MATT Primary Care Provider Encounter Details Date Type Department Care Team Description 12/15/2020 Notes Only Infectious Disease a [place] [facility] Ortega, [facility] [place] [phone] Social History Tobacco Use Types Packs/Day Years Used Date Current Every Day Smoker Cigarettes 0.25 Smokeless Tobacco: Never Used Sex Assigned at Date Recorded Not on file documented as of this encounter Progress Notes Cyn Ortega, RN - 12/15/2020 2:57 PM EDT Infectious Disease/OPAT Program Progress Note 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 Our affiliations were reviewed with them and they were educated about their right to choose where referrals are placed. Patient requests referral to: [facility] Expected date of outpatient start: 12/17. Cyn Ortega, RN - 12/15/2020 2:57 PM EDT Infectious Disease/OPAT Program Progress Note Outpatient start for IV ABX on 12/16 Schedule: 12/16 PICC line insertion at home with [facility] 12/16 First infusion at home with [facility] Baseline labs to be drawn at [facility] Orders/referrals completed: PICC line insertion (paper copy for [facility]), OPAT, labs, QUALITY CONTROL INSPECTOR HEADING referral Referrals made to: QUALITY CONTROL INSPECTOR HEADING: [facility] Infusion vendor: [employer] [facility] ID physicians Corin Marcus and Michelle Carney and patient aware of schedule. Cyn Ortega RN - 12/15/2020 2:57 PM EDT Infectious Disease/OPAT Program Teaching Visit Spoke with patient via telephone to discuss home IV ABX via outpatient start. Reviewed OPAT order, PICC line care including dressing changes and labs both weekly & prn, potential issues, what they might indicate and who to contact. OPAT folder with contact information for IDteam to be mailed to patient. Reviewed roles and responsibilities of QUALITY CONTROL INSPECTOR HEADING and infusion vendor. Discussed follow-up appointments in ID 5C clinic, tele health and/or telephone call. Patient verbalized understanding. All questions answered. IV ABX Medications: Daptomycin 600mg IV Q24h Start/anticipated end date: 12/16 through 01/13 QUALITY CONTROL INSPECTOR HEADING: [facility] Infusion vendor: [employer] [facility] IV Access: PICC line (single lumen) Placed: tomorrow 12/16 at home via [facility] nurse documented in this encounter Plan of Treatment Upcoming Encounters Date Type Specialty Care Team Description 01/25/2022 Office Visit Rheumatology Sadaf Bridges MD [facility] RHEUMATOLOGY [place], [place] [address] (Wo rk) documented as of this encounter Visit Diagnoses Not on filedocumented in this encounter Care Teams Scouring Train Operator Chief Relationship Specialty Start Date End Date Adelita Munguia APRN PCP - General Family Medicine 12/03/[address] [place] [address] documented as of this encounter
--- OUTSIDE RECORDS SUMMARY | 2021-10-21 02:05 | XMS_ITS | Encounter Summary ---
:1975 Author Organization [facility] Address [address] [place] [address] Care Team Providers Name Role Phone Unavailable Primary Care Provider Unavailable Encounter Details Date Type Department Care Team Description 03/11/2003 Results Only [facility] - Marleny Shea od, OIL SEAL ASSEMBLER [address] [place] [phone] (Wo rk) Social History Tobacco Use Types Packs/Day Years Used Date Never Assessed Sex Assigned at Date Recorded Not on file documented as of this encounter Plan of Treatment Not on filedocumented as of this encounter Procedures Procedure Name Priority Date/Time Associated Diagnosis Comme [facility] CYTOPATHOLOGY Routine 03/11/2003 0:00 EST Results for this procedure are i n the results section . documented in this encounter Results CYTOPATHOLOGY (03/11/2003 0:00 EST) Pathology Report: CYTOPATHOLOGY REPORT [facility] Reports generated via electronic interface contain shonda ginal data; however they are lacking the format of the original re port. Caution should be taken when reading/interpreting unfo rmatted reports. Name: ? BEST PEREZ ? Accession #: ? [id number] : ? 1975 (Age: 27) ??F ?Collect Date: ? 02/28 Location: ? [facility] ? Receive Date : ? 03/13/2003 Provider: ?MARLENY STARK OIL SEAL ASSEMBLER Copy to: ? Specimen/Source: ?ThinPrep Pap Test, Cervix/ Endocervix Last Menstrual Period: ? 03/04/03 Previous Gynecologic Pathology: ? 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 SPECIMEN ADEQUACY ? Satisfactory for Evaluation - transformation zone component present GENERAL CATEGORIZATION ? Negative for Intraepithelial Lesion or Malignan cy ? Document reviewed and electronically signed by: ? JASPAL Jo(ASCP) ? Report Date: ??03/19/2003 12:03 End of Report Specimen Performing Organization Address City/State/ZIP Code Phon e Number [facility] [address] [phone] SERVICES [facility] [address] [place] [address] documented in this encounter Visit Diagnoses Not on filedocumented in this encounter
--- OUTSIDE RECORDS SUMMARY | 2021-10-21 02:05 | XMS_ITS | Encounter Summary ---
:1975 Author Organization [facility] Address [address] [place] [address] Care Team Providers Name Role Phone Unavailable Primary Care Provider Unavailable Encounter Details Date Type Department Care Team Description 01/29/2001 Results Only [facility] - Jimmy Hammond [facility] [address] [place] [address] [place] [address] [phone] Social History Tobacco Use Types Packs/Day Years Used Date Never Assessed Sex Assigned at Date Recorded Not on file documented as of this encounter Plan of Treatment Not on filedocumented as of this encounter Procedures Procedure Name Priority Date/Time Associated Diagnosis Comme nts CYTOPATHOLOGY Routine 01/29/2001 0:00 EDT Results for this procedure are i n the results section . documented in this encounter Results CYTOPATHOLOGY (01/29/2001 0:00 EDT) Pathology Report: CYTOPATHOLOGY REPORT [facility] Reports generated via electronic interface contain shonda ginal data; however they are lacking the format of the original re port. Caution should be taken when reading/interpreting unfo rmatted reports. Name: ? BEST PEREZ ? Accession #: ? [id number] : ? 1975 (Age: 25) ??F ?Collect Date: ? 1005/2000 Location: ? [facility] ? Receive Date : ? 01/31/2001 Provider: ?BASSAMAnanda BOSTON CNM Copy to: ? Specimen/Source: ?ThinPrep Pap Test, Cervix/ Endocervix Last Menstrual Period: ? 03/11/00 Menstrual/ Status: ? Post Previous Gynecologic Pathology: ? ASC-US: cannot rule out SHAI Benign cellular changes: 04/30 Other: ? Additional clinical information: WNL ? SPECIMEN ADEQUACY ? Satisfactory for evaluation. GENERAL CATEGORIZATION ? Within Normal Limits ? Document reviewed and electronically signed by: ? LAVINIA Ayoub(ASCP) ? Report Date: ??02/01/2001 14:12 End of Report Specimen Performing Organization Address City/State/ZIP Code Phon e Number [facility] [address] [place] [address] SERVICES [facility] [address] [place] [address] documented in this encounter Visit Diagnoses Not on filedocumented in this encounter
--- OUTSIDE RECORDS SUMMARY | 2021-10-21 02:05 | XMS_ITS | Encounter Summary ---
:1975 Author Organization [facility] Address [address] [place] [address] Care Team Providers Name Role Phone Unavailable Primary Care Provider Unavailable Encounter Details Date Type Department Care Team Description 08/26/2007 Results Only [facility] - Marleny Shea od, BILLING ASSISTANT [address] [place] [phone] (Wo rk) Social History Tobacco Use Types Packs/Day Years Used Date Never Assessed Sex Assigned at Date Recorded Not on file documented as of this encounter Plan of Treatment Not on filedocumented as of this encounter Procedures Procedure Name Priority Date/Time Associated Comments Diagnosis HPV DETECTION, HIGH Routine 08/26/2007 6:59 Resul ts for this RISK TYPES EDT procedure are i n the results section. CYTOPATHOLOGY Routine 08/26/2007 0:00 Results for this EDT procedure are i n the results section. documented in this encounter Results HUMAN PAPILLOMA VIRUS DNA TEST (08/26/2007 6:59 EDT) Specimen Description Cervix, ThinPrep [facility] vial Result Negative for HPV [facility] types 16, 18, 31, 33, 35, 39, 45, 51, 52, 56, 58, 59, and 68. Report Status Final [facility] [id number] Specimen Performing Organization Address City/State/ZIP Code Phon e Number [facility] [address] [place] [address] SERVICES [facility] [address] [place] [address] CYTOPATHOLOGY (08/26/2007 0:00 EDT) Pathology Report: CYTOPATHOLOGY REPORT [facility] Reports generated via electronic interface contain shonda ginal data; however they are lacking the format of the original re port. Caution should be taken when reading/interpreting unfo rmatted reports. Name: ? ALVIN BEST ? Accession #: ? [id number] : ? 1975 (Age: 32) ??F ?Collect Date: ? 07/30 Location: ? [facility] ? Receive Date : ? 08/26/2007 Provider: ?MARLENY STARK BILLING ASSISTANT Copy to: ? Specimen/Source: ? ThinPrep Pap Test, Cervix/Endocervix, processed on [employer] ThinPrep Imaging System, with manual evaluation Last Menstrual Period: ? 08/05/07 Previous Gynecologic Pathology: ? ASC-US: Cannot R/o SHAI 96 Benign cellular changes: 04/30 LSIL: 10/02 Treatment History: ? Cervical biopsy: 11/01 acute & chr. cervicitis & react . atypia dysplasia not identified Other: ? Additional clinical information: 07/03 pap neg. HPVA - HPV testing requested if ASC-US on the current ThinPrep Pap test. ? SPECIMEN ADEQUACY ? Satisfactory for Evaluation - transformation zone component present GENERAL CATEGORIZATION ? Negative for Intraepithelial Lesion or Malignan cy ? Document reviewed and electronically signed by: ? JASPAL Lawrence(ASCP) ? Report Date: ??09/02/2007 09:21 End of Report Specimen Performing Organization Address City/State/ZIP Code Phon e Number [facility] [address] [phone] SERVICES [facility] [address] [place] [address] documented in this encounter Visit Diagnoses Not on filedocumented in this encounter
--- OUTSIDE RECORDS SUMMARY | 2021-10-21 02:05 | XMS_ITS | Encounter Summary ---
:1975 Author Organization [facility] Address [address] [place] [address] Care Team Providers Name Role Phone Adelita Munguia SAND MIXER OPERATOR Primary Care Provider Encounter Details Date Type Department Care Team Description 11/23/2020 Lab Requisition [facility] Robert Blake for other Pathology & Suman Warren MD general examination Laboratory Medicine [address] [place], [place] 111 [facility] [phone] [place] [address] Social History Tobacco Use Types Packs/Day Years Used Date Never Assessed Sex Assigned at Date Recorded Not on file documented as of this encounter Plan of Treatment Not on filedocumented as of this encounter Procedures Procedure Name Priority Date/Time Associated Diagnosis Comme nts SURGICAL PATHOLOGY Today 11/23/2020 14:05 Encounter for othe r Results for this EDT general examination procedur e are in the results section. documented in this encounter Results SURGICAL PATHOLOGY (11/23/2020 14:05 EDT) Note to Patient The following [facility] pathology results CENTER have been interpreted LABORATORY by your pathologist SERVICES and may be available to you before your health provider has had the opportunity to review them. Please allow time for your provider to receive these results and explore management options, if applicable. Final Diagnosis A. 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 See comment. CENTER LABORATORY SERVICES Diagnosis Comment The findings raise [facility] the possibility of CENTER rheumatoid arthritis. LABORATORY Clinical correlation SERVICES with serologic studies is recommended. Similar findings can be seen in lyme arthritis. No polarizable material is identified. Attestation There was significant [facility] MEDICAL Electr onically resident/fellow CENTER signed by barbi Ball in the LABORATORY Shaye Montiel MD diagnostic evaluation SERVICES on 11/28 at 1946 of this case. By the signature below, the attending physician certifies that they have personally conducted a gross and/or microscopic examination of the described specimens and rendered or confirmed the above diagnosis. Clinical History Right knee effusion [facility] MEDICAL and pain after CENTER arthroscopy LABORATORY SERVICES Gross Description A. [facility] MEDICAL Received in formalin daniel d with proper patient identification (initials C, A) and right knee synovium is an aggregate of pale wray rubbery tissue (1.5 x 0.5 x 0.5 cm). The specimen is submitted entirely in A1. [facility] ROHITH COWAN(ASC) 11/24/2020 9:32 SERV ICES Resident/Fellow: Chong Valera MD [facility] LABORATORY SERVICES Performing Lab [facility] LAB [facility] LABORATORY SERVICES Scanned Images [facility] LABORATORY SERVICES Specimen Tissue - Entire synovial membrane of kathi nt (body structure) Performing Organization Address City/State/ZIP Code Phon e Number [facility] [address] [place] [address] SERVICES documented in this encounter Visit Diagnoses Diagnosis Encounter for other general examination documented in this encounter Care Teams Presser All Around Relationship Specialty Start Date End Date Adelita Munguia NP PCP - General Family Medicine - Primary 10/28/[address] [place] [phone] documented as of this encounter
--- OUTSIDE RECORDS SUMMARY | 2021-10-21 02:05 | XMS_ITS | Encounter Summary ---
:[address] [facility] Address [address] [place] [address] Care Team Providers Name Role Phone Unavailable Primary Care Provider Unavailable Encounter Details Date Type Department Care Team Description 05/06/[address] [facility] - Jimmy Hammond CNM [facility] [address] [place] [address] [place] [address] [phone] Social History Tobacco Use Types Packs/Day Years Used Date Never Assessed Sex Assigned at Date Recorded Not on file documented as of this encounter Plan of Treatment Not on filedocumented as of this encounter Procedures Procedure Name Priority Date/Time Associated Diagnosis Comme nts CYTOPATHOLOGY Routine 05/06/1999 10:27 EST Result s for this procedure are i n the results section . documented in this encounter Results CYTOPATHOLOGY (05/06/1999 10:27 EST) Pathology Report: CYTOPATHOLOGY REPORT [facility] Reports generated via electronic interface contain shonda ginal data; however they are lacking the format of the original re port. Caution should be taken when reading/interpreting unfo rmatted reports. Name: ? BEST PEREZ ? Accession #: ? [id number] : ? 1975 (Age: 23) ??F ?Collect Date: ? 10/1999 Location: ?Receive Date: ? 05/06/1999 Provider: ?ANEA LELONG CNM Copy to: ?ANEA LELONG CNM ? Specimen/Source: ?Pap Smear (One Slide) Last Menstrual Period: ? GYNECOLOGIC ??CYTOPATHOLOG Y ??REPORT Name: ARIAS,BEST ? [facility] : 1975 ?? 23Y F ?Cl ient ID: [id number] SS#: [id number] ? Ac cession #: [id number] Clinician: LELONG CNM, ANEA ?? Location: [facility] ??Copy to: ?? Specimen: ?Pap Smear (One Slide) ? Source: Cervix/Endocervix ?Collected: 05/04/99 ? Received: 05/06/1999 ?LMP: No ? Hormone Therapy: No ? : Yes ?Radiation Therapy: No ?? Post : No ?Chemotherapy: No ?IUD: No ? Prev Abnormal Pap: No ?? Clinical Hx: ?(Blank medina indicate information not provided on requisition) SPECIMEN ADEQUACY: ? Satisfactory For Evaluation ?? GENERAL CATEGORIZATION: ? WITHIN NORMAL LIMITS ? Reviewed And Electronically Signed By: ? Roverto Howard er, Jr., CT(ASCP) ? Report Date : ?? 05/06/1999 [place] Archived Tests - Final Diagnosis Text Field: Clinical History : ? Document reviewed and electronically signed by: ? Conversion ? Report Date: ??05/06/1999 00:00 End of Report Specimen Performing Organization Address City/State/ZIP Code Phon e Number [facility] [address] [place] [address] SERVICES [facility] [address] [place] [address] documented in this encounter Visit Diagnoses Not on filedocumented in this encounter
--- OUTSIDE RECORDS SUMMARY | 2021-10-21 02:05 | XMS_ITS | Clinical Summary ---
:1975 Author Organization [facility] Address [address] [place] [address] Care Team Providers Name Role Phone Adelita Munguia BODY AND FRAME TECHNICIAN Primary Care Provider Social History Tobacco Use Types Packs/Day Years Used Date Never Assessed Sex Assigned at Date Recorded Not on file Plan of Treatment Health Maintenance Due Date Last Done Comments Hepatitis C Screen 1975 COVID-19 Vaccine (1) 07/29/1979 Insurance Payer Benefit Plan / Subscriber ID Effective Phone Address T ype Group Dates [facility] [id number] 2019-Prese [address] [place] [id number] [place] [address] BCBS OOS [employer] [id number] 2020-Prese [phone] [address] [id number] [address] [id number] [place] [address] ChrisPolye Personal/Family Self 1975 [address] (Home) [place] [address] Care Teams Seam Rubbing Machine Operator Relationship Specialty Start Date End Date Adelita Munguia NP PCP - General Family Medicine - Primary 10/28/[address] [place] [phone]
--- OUTSIDE RECORDS SUMMARY | 2021-10-21 02:05 | XMS_ITS | Encounter Summary ---
:1975 Author Organization [facility] Address [address] [place] [address] Care Team Providers Name Role Phone Unavailable Primary Care Provider Unavailable Encounter Details Date Type Department Care Team Description 11/22/2004 Results Only [facility] - Kendy Seay MD [place] [facility] [address] [place] [address] [place] [address] Social History Tobacco Use Types Packs/Day Years Used Date Never Assessed Sex Assigned at Date Recorded Not on file documented as of this encounter Plan of Treatment Not on filedocumented as of this encounter Procedures Procedure Name Priority Date/Time Associated Diagnosis Comme nts SURGICAL PATHOLOGY Routine 11/22/2004 0:00 EDT Re sults for this procedure are i n the results section. documented in this encounter Results SURGICAL PATHOLOGY (11/22/2004 0:00 EDT) Pathology Report: SURGICAL PATHOLOGY REPORT [facility] Reports generated via electronic interface contain shonda ginal data; LAB however they are lacking the format of the original re port. Caution should be taken when reading/interpreting unfo rmatted reports. Name: ? BEST PEREZ ? Accession #: ? [id number] ? : ? 1975 (Age: 29) ??F ? Collect Date: ? 11/22/2004 ? Location: ? [facility] ? Receive Date: ? 005 ? Provider: EAN SEAY MD Copy to: JOSE HOWARD MD ? Final Pathologic Diagnosis: ? Cervix, 2 o'clock, biopsy: - Acute and chronic cervicitis, squamous metaplasia and reactive atypia. ??See comment. - No dysplasia identified. Comment: ? Deeper levels of the cervical biopsy have been examined and show no definitive dysplasia. ??Immu nohistochemistry for p16 (E6H4, Dako) is negative and MIB-1 (MIB-1, Dako) shows a low proliferation index wi thin the area of epithelial atypia, supportin g a reactive process over a squamous intraepithelial lesion. ??The prior Pap smea r ([id number]) has been reviewed and the diagnosis of LSIL confirmed. ??The LSIL c ells present in the Pap smear are not present on the current specimen. ?? Dr. Jeannette Al has reviewed this case and agrees with the above diagnoses. ??[facility] ??(Dr. Strickland)/[facility] Document reviewed and electronically signed by: RODO STRICKLAND MD Report ??Date: 11/30/2004 16:41 By the signature above, the attending physician certif ies that he/she has personally conducted a gross and/or microscopic examin ation of the described specimens and rendered or confirmed the above diagnosi s. Specimen(s) Received: ? Cx bx @ 2:00 Clinical History: ? 10/02 Pap LSIL. ??Clinical diagnosis code: . ?? Gross Description: ? Received in formalin labelled Chris and cx bx @ 2:00 is a wray-white, 0.3 x 0.3 x 0.2 cm, soft tis jing fragment. ??The specimen is entirely submitted in one cassette. ??(Lilliana Perez/fan End of Report Specimen Performing Organization Address City/State/ZIP Code Phon e Number [facility] [address] [place] [address] SERVICES [facility] [address] [place] [address] documented in this encounter Visit Diagnoses Not on filedocumented in this encounter
--- OUTSIDE RECORDS SUMMARY | 2021-10-21 02:05 | XMS_ITS | Encounter Summary ---
:[address] [facility] Address [address] [place] [address] Care Team Providers Name Role Phone Unavailable Primary Care Provider Unavailable Encounter Details Date Type Department Care Team Description 05/18/2000 Results Only [facility] - Jimmy Hammond CNM conversion [address] [place] [address] [place] [address] [phone] Social History Tobacco Use Types Packs/Day Years Used Date Never Assessed Sex Assigned at Date Recorded Not on file documented as of this encounter Plan of Treatment Not on filedocumented as of this encounter Procedures Procedure Name Priority Date/Time Associated Diagnosis Comme nts CYTOPATHOLOGY Routine 05/18/2000 0:00 EST Results for this procedure are i n the results section . documented in this encounter Results CYTOPATHOLOGY (05/18/2000 0:00 EST) Pathology Report: CYTOPATHOLOGY REPORT [facility] Reports generated via electronic interface contain shonda ginal data; however they are lacking the format of the original re port. Caution should be taken when reading/interpreting unfo rmatted reports. Name: ? BEST PEREZ ? Accession #: ? [id number] : ? 1975 (Age: 24) ??F ?Collect Date: ? 04/30 Location: ? [facility] ? Receive Date : ? 05/21/2000 Provider: ?BASSAMAnanda NOYOLAMELISSALOUANN CNM Copy to: ? Specimen/Source: ?ThinPrep Pap Test, Cervix/ Endocervix Last Menstrual Period: ? 03/11/00 Menstrual/ Status: ? SPECIMEN ADEQUACY ? Satisfactory for evaluation. GENERAL CATEGORIZATION ? Benign Cellular Changes DESCRIPTIVE DIAGNOSIS ? Fungal organisms pres ent morphologically consistent with Stacey species. ? Document reviewed and electronically signed by: ? JASPAL Noriega(ASCP) ? Report Date: ??05/21/2000 14:40 End of Report Specimen Performing Organization Address City/State/ZIP Code Phon e Number [facility] [address] [place] [address] SERVICES [facility] [address] [place] [address] documented in this encounter Visit Diagnoses Not on filedocumented in this encounter
--- OUTSIDE RECORDS SUMMARY | 2021-10-21 02:05 | XMS_ITS | Encounter Summary ---
:1975 Author Organization [facility] Address [address] [place] [address] Care Team Providers Name Role Phone Unavailable Primary Care Provider Unavailable Encounter Details Date Type Department Care Team Description 07/24/2005 Results Only [facility] Shea od, MILKING WORKER [address] [place] [id number] (Wo rk) Social History Tobacco Use Types Packs/Day Years Used Date Never Assessed Sex Assigned at Date Recorded Not on file documented as of this encounter Plan of Treatment Not on filedocumented as of this encounter Procedures Procedure Name Priority Date/Time Associated Diagnosis Comme [facility] CYTOPATHOLOGY Routine 07/24/2005 0:00 EST Results for this procedure are i n the results section . documented in this encounter Results CYTOPATHOLOGY (07/24/2005 0:00 EST) Pathology Report: CYTOPATHOLOGY REPORT [facility] Reports generated via electronic interface contain shonda ginal data; however they are lacking the format of the original re port. Caution should be taken when reading/interpreting unfo rmatted reports. Name: ? BEST PEREZ ? Accession #: ? [id number] : ? 1975 (Age: 29) ??F ?Collect Date: ? 06/29 Location: ? [facility] ? Receive Date : ? 07/26/2005 Provider: ?MARLENY STARK MILKING WORKER Copy to: ? Specimen/Source: ? ThinPrep Pap Test, Cervix/Endocervix, processed on charity: water ThinPrep Imaging System, with manual evaluation Last Menstrual Period: ? 07/18/05 Previous Gynecologic Pathology: ? ASC-US: cannot r/o SHAI Benign cellular changes: 04/30 LSIL: 10/25/04 Other: ? Additional clinical informat ion: 12/02 Acute + chr. cervictis + reactive atypia- dysplasia not identified HPVA - HPV testing requested if ASC-US on the current ThinPrep Pap test. ? SPECIMEN ADEQUACY ? Satisfactory for Evaluation - transformation zone component present GENERAL CATEGORIZATION ? Negative for Intraepithelial Lesion or Malignan cy ? Document reviewed and electronically signed by: ? JASPAL Wadsworth(ASCP) ? Report Date: ??2005 09:20 End of Report Specimen Performing Organization Address City/State/ZIP Code Phon e Number [facility] [address] [place] [address] SERVICES [facility] [address] [place] [address] documented in this encounter Visit Diagnoses Not on filedocumented in this encounter
[2021-10-21 10:05] LABS: Abs Immature Grans 0.05 10^3/uL (0.0-0.06); Absolute Basophil Count 0.12 10^3/uL (0.0-0.2); Absolute Eosinophil Count 0.16 10^3/uL (0.0-0.7); Absolute Lymphocyte Count 2.97 10^3/uL (1.2-3.4); Absolute Monocyte Count 0.75 10^3/uL (0.1-0.8); Absolute Neutrophil Count 7.61 10^3/uL (1.2-6.7); Eosinophils % 1.4; HCT 45.4 % (36.0-46.0); HGB 14.6 g/dL (11.2-15.7); Immature Grans % 0.4; Lymphocytes % 25.5; MCH 28.8 pg (27.0-33.0); MCHC 32.2 % (32.0-36.0); MCV 90 fL (80-95); MPV 9.7 fL (8.0-11.0); Monocytes % 6.4; Neutrophils % 65.3; Platelet Count 408 10^3/uL (130-400); RBC 5.07 10^6/uL (3.93-5.22); RDW-SD 45.9 fL; WBC 11.66 10^3/uL (4.4-10.8)
[2021-10-21 10:06] LABS: ESR 34 mm/hr (0-20)
[2021-10-21 10:43] LABS: ALT 25 U/L (14-59); AST 17 U/L (15-37); Albumin 3.6 g/dL (3.4-5.0); Alkaline Phosphatase 92 U/L (46-116); Anion Gap 10.5 mmol/L (3-11); BUN 15 mg/dL (7-18); Bilirubin, Total 0.3 mg/dL (0.2-1.0); C-Reactive Protein 0.89 mg/dL (0.0-0.3); CO2 25.5 mmol/L (21.0-32.0); CREATININE 0.9 mg/dL (0.55-1.02); Calcium 9.2 mg/dL (8.5-10.1); Chloride 105 mmol/L (98-107); Glucose 81 mg/dL (74-106); Potassium 3.7 mmol/L (3.5-5.1); Sodium 141 mmol/L (136-145); Total Protein 7.7 g/dL (6.4-8.2)
== END 2021-10-21 02:01 | disposition home or self-care (01) ==
LOC: LBO 02:00
PROVIDERS: Visit Provider Internal Medicine
DX: M05.9 Rheumatoid arthritis with rheumatoid factor, unspecified (principal); Z79.899 Other long term (current) drug therapy
CPT/HCPCS: 36415; 80053; 85652; 85025; 86140

== ENCOUNTER 2023-10-12 02:38 | Outpatient (CLI) | payer BC, SELFPAY ==
[2023-10-12 11:38] LABS: ESR 35 mm/hr (0-20)
[2023-10-12 11:40] LABS: Abs Immature Grans 0.03 10^3/uL (0.0-0.06); Absolute Eosinophil Count 0.39 10^3/uL (0.0-0.7); Absolute Lymphocyte Count 3.53 10^3/uL (1.2-3.4); Absolute Monocyte Count 0.79 10^3/uL (0.1-0.8); Basophils % 1.1 %; Eosinophils % 3.2 %; HCT 44.9 % (36.0-46.0); HGB 14.2 g/dL (11.2-15.7); Immature Grans % 0.2 %; Lymphocytes % 28.9 %; MCH 28.7 pg (27.0-33.0); MCHC 31.6 % (32.0-36.0); MCV 91 fL (80-95); MPV 9.3 fL (8.0-11.0); Monocytes % 6.5 %; Neutrophils % 60.1 %; Platelet Count 433 10^3/uL (130-400); RBC 4.94 10^6/uL (3.93-5.22); RDW 13.2 % (11.7-14.6); RDW-SD 43.7 fL; WBC 12.21 10^3/uL (4.4-10.8)
[2023-10-12 11:42] LABS: Absolute Basophil Count 0.13 10^3/uL (0.0-0.2); Absolute Neutrophil Count 7.34 10^3/uL (1.2-6.7)
[2023-10-12 12:25] LABS: ALT 28 U/L (14-59); AST 14 U/L (15-37); Albumin 3.6 g/dL (3.4-5.0); Alkaline Phosphatase 102 U/L (46-116); BUN 11 mg/dL (7-18); Bilirubin, Total 0.4 mg/dL (0.2-1.0); C-Reactive Protein 0.56 mg/dL (<or=0.5); CREATININE 0.9 mg/dL (0.55-1.02); Calculated LDL 108 mg/dL (<100); Chloride 103 mmol/L (98-107); Cholesterol 200 mg/dL (<200); Estimated GFR 78.37 (mL/min/1.73m2); Glucose 112 mg/dL (74-106); HDL Cholesterol 59 mg/dL (40-60); Potassium 3.7 mmol/L (3.5-5.1); Sodium 140 mmol/L (136-145); Total Protein 7.6 g/dL (6.4-8.2); Triglyceride 165 mg/dL (<150)
== END 2023-10-12 02:39 | disposition home or self-care (01) ==
LOC: LBO 02:38
PROVIDERS: PCP Nurse Practitioner Family; Visit Provider Internal Medicine Rheumatology
DX: Z13.220 Encounter for screening for lipoid disorders (principal); Z00.00 Encounter for general adult medical examination without abnormal findings
CPT/HCPCS: 36415; 80053; 80061; 85652; 85025; 86140

== ENCOUNTER 2024-01-14 04:21 | Outpatient (CLI) | payer BC, SELFPAY ==
[2024-01-14 08:49] LABS: Abs Immature Grans 0.04 10^3/uL (0.0-0.06); Absolute Basophil Count 0.14 10^3/uL (0.0-0.2); Absolute Eosinophil Count 0.49 10^3/uL (0.0-0.7); Absolute Lymphocyte Count 3.21 10^3/uL (1.2-3.4); Basophils % 1.2 %; Eosinophils % 4.2 %; HCT 43.7 % (36.0-46.0); HGB 13.7 g/dL (11.2-15.7); Immature Grans % 0.3 %; Lymphocytes % 27.7 %; MCH 28.5 pg (27.0-33.0); MCHC 31.4 % (32.0-36.0); MCV 91 fL (80-95); MPV 9.2 fL (8.0-11.0); Monocytes % 6.9 %; Neutrophils % 59.7 %; Platelet Count 429 10^3/uL (130-400); RDW 14.4 % (11.7-14.6); WBC 11.58 10^3/uL (4.4-10.8)
[2024-01-14 08:52] LABS: Absolute Neutrophil Count 6.91 10^3/uL (1.2-6.7)
[2024-01-14 08:57] LABS: ESR 36 mm/hr (0-20)
[2024-01-14 08:59] LABS: ALT 20 U/L (14-59); AST 14 U/L (15-37); Albumin 3.3 g/dL (3.4-5.0); Alkaline Phosphatase 92 U/L (46-116); Anion Gap 12.8 mmol/L (3-11); BUN 11 mg/dL (7-18); Bilirubin, Total 0.25 mg/dL (0.2-1.0); CO2 24.2 mmol/L (21.0-32.0); CREATININE 0.8 mg/dL (0.55-1.02); Calcium 9.2 mg/dL (8.5-10.1); Chloride 106 mmol/L (98-107); Estimated GFR 90.27 (mL/min/1.73m2); Glucose 99 mg/dL (74-106); Potassium 3.9 mmol/L (3.5-5.1); Sodium 143 mmol/L (136-145); Total Protein 7.1 g/dL (6.4-8.2)
[2024-01-14 09:17] LABS: C-Reactive Protein 0.65 mg/dL (<or=0.5)
[2024-01-15 11:32] LABS: IgA 458 mg/dL (85-499); Interpretation (See Note); Tissue Transglutaminase IgA <4.0 CU (<20.0)
== END 2024-01-14 04:22 | disposition home or self-care (01) ==
LOC: LBO 04:21
PROVIDERS: PCP Nurse Practitioner Family; Visit Provider Internal Medicine Rheumatology
DX: R21 Rash and other nonspecific skin eruption (principal); M05.9 Rheumatoid arthritis with rheumatoid factor, unspecified
CPT/HCPCS: 36415; 80053; 82784; 83516; 85652; 85025; 86140

== ENCOUNTER 2024-04-14 02:31 | Outpatient (CLI) | payer BC, SELFPAY ==
[2024-04-14 08:54] LABS: Abs Immature Grans 0.06 10^3/uL (0.0-0.06); Absolute Basophil Count 0.12 10^3/uL (0.0-0.2); Absolute Eosinophil Count 0.26 10^3/uL (0.0-0.7); Absolute Lymphocyte Count 2.43 10^3/uL (1.2-3.4); Absolute Monocyte Count 0.84 10^3/uL (0.1-0.8); Absolute Neutrophil Count 10.02 10^3/uL (1.2-6.7); Basophils % 0.9 %; Eosinophils % 1.9 %; HCT 40.7 % (36.0-46.0); HGB 13.1 g/dL (11.2-15.7); Immature Grans % 0.4 %; Lymphocytes % 17.7 %; MCH 29.3 pg (27.0-33.0); MCHC 32.2 % (32.0-36.0); MCV 91 fL (80-95); MPV 8.5 fL (8.0-11.0); Monocytes % 6.1 %; Platelet Count 491 10^3/uL (130-400); RBC 4.47 10^6/uL (3.93-5.22); RDW 13.3 % (11.7-14.6); RDW-SD 44.5 fL; WBC 13.73 10^3/uL (4.4-10.8)
[2024-04-14 08:56] LABS: ESR 66 mm/hr (0-20)
[2024-04-14 09:13] LABS: ALT 18 U/L (14-59); AST 14 U/L (15-37); Albumin 3.3 g/dL (3.4-5.0); Alkaline Phosphatase 107 U/L (46-116); Anion Gap 10.2 mmol/L (3-11); BUN 10 mg/dL (7-18); Bilirubin, Total 0.19 mg/dL (0.2-1.0); C-Reactive Protein 2.55 mg/dL (<or=0.5); CO2 25.8 mmol/L (21.0-32.0); CREATININE 0.8 mg/dL (0.55-1.02); Chloride 104 mmol/L (98-107); Estimated GFR 90.27 (mL/min/1.73m2); Glucose 92 mg/dL (74-106); Potassium 4.1 mmol/L (3.5-5.1); Sodium 140 mmol/L (136-145); Total Protein 7.7 g/dL (6.4-8.2)
== END 2024-04-14 02:32 | disposition home or self-care (01) ==
LOC: LBO 02:31
PROVIDERS: PCP Nurse Practitioner Family; Visit Provider Internal Medicine Rheumatology
DX: M05.9 Rheumatoid arthritis with rheumatoid factor, unspecified (principal)
CPT/HCPCS: 36415; 80053; 85652; 85025; 86140

== ENCOUNTER 2024-10-02 03:36 | Outpatient (CLI) | payer BC, SELFPAY ==
[2024-10-02 09:58] LABS: ESR 33 mm/hr (0-20)
[2024-10-02 10:17] LABS: ALT 24 U/L (14-59); AST 16 U/L (15-37); Albumin 3.6 g/dL (3.4-5.0); Alkaline Phosphatase 99 U/L (46-116); Anion Gap 11.2 mmol/L (3-11); BUN 18 mg/dL (7-18); Bilirubin, Total 0.4 mg/dL (0.2-1.0); C-Reactive Protein 0.59 mg/dL (<or=0.5); CO2 24.8 mmol/L (21.0-32.0); CREATININE 0.8 mg/dL (0.55-1.02); Calcium 9.2 mg/dL (8.5-10.1); Chloride 104 mmol/L (98-107); Estimated GFR 89.71 (mL/min/1.73m2); Glucose 88 mg/dL (74-106); Potassium 4.1 mmol/L (3.5-5.1); Sodium 140 mmol/L (136-145); Total Protein 7.6 g/dL (6.4-8.2)
[2024-10-02 12:35] LABS: Abs Immature Grans 0.02 10^3/uL (0.0-0.06); Absolute Basophil Count 0.13 10^3/uL (0.0-0.2); Absolute Eosinophil Count 0.27 10^3/uL (0.0-0.7); Absolute Lymphocyte Count 2.86 10^3/uL (1.2-3.4); Absolute Monocyte Count 0.81 10^3/uL (0.1-0.8); Absolute Neutrophil Count 6.63 10^3/uL (1.2-6.7); Basophils % 1.2 %; Eosinophils % 2.5 %; HCT 43.7 % (36.0-46.0); Immature Grans % 0.2 %; Lymphocytes % 26.7 %; MCH 28.5 pg (27.0-33.0); MCV 89 fL (80-95); MPV 9.9 fL (8.0-11.0); Monocytes % 7.6 %; Neutrophils % 61.8 %; Platelet Count 451 10^3/uL (130-400); RBC 4.92 10^6/uL (3.93-5.22); RDW 13.9 % (11.7-14.6); RDW-SD 45.4 fL; WBC 10.72 10^3/uL (4.4-10.8)
== END 2024-10-02 03:37 | disposition home or self-care (01) ==
LOC: LBO 03:36
PROVIDERS: PCP Nurse Practitioner Family; Visit Provider Internal Medicine Rheumatology
DX: M05.9 Rheumatoid arthritis with rheumatoid factor, unspecified (principal)
CPT/HCPCS: 36415; 80053; 85652; 85025; 86140

== ENCOUNTER 2025-03-05 01:29 | Outpatient (CLI) | payer BC, SELFPAY ==
[2025-03-05 08:07] LABS: Abs Immature Grans 0.03 10^3/uL (0.0-0.06); HCT 42.8 % (36.0-46.0); HGB 13.7 g/dL (11.2-15.7); Immature Grans % 0.3 %; MCH 28.6 pg (27.0-33.0); MCHC 32.0 % (32.0-36.0); MCV 89 fL (80-95); MPV 9.2 fL (8.0-11.0); Platelet Count 420 10^3/uL (130-400); RBC 4.79 10^6/uL (3.93-5.22); RDW 13.3 % (11.7-14.6); RDW-SD 43.8 fL; WBC 9.89 10^3/uL (4.4-10.8)
[2025-03-05 08:08] LABS: ESR 39 mm/hr (0-20)
[2025-03-05 09:03] LABS: ALT 19 U/L (14-59); AST 16 U/L (15-37); Albumin 3.6 g/dL (3.4-5.0); Alkaline Phosphatase 83 U/L (46-116); Anion Gap 11.3 mmol/L (3-11); BUN 9 mg/dL (7-18); Bilirubin, Total 0.4 mg/dL (0.2-1.0); CO2 23.7 mmol/L (21.0-32.0); Calcium 9.1 mg/dL (8.5-10.1); Chloride 103 mmol/L (98-107); Glucose 105 mg/dL (74-106); Potassium 3.8 mmol/L (3.5-5.1); Sodium 138 mmol/L (136-145); Total Protein 7.7 g/dL (6.4-8.2)
[2025-03-05 09:18] LABS: C-Reactive Protein < 0.50 mg/dL (<or=0.5)
== END 2025-03-05 01:30 | disposition home or self-care (01) ==
LOC: LBO 01:29
PROVIDERS: PCP Nurse Practitioner Family; Visit Provider Internal Medicine Rheumatology
DX: M05.9 Rheumatoid arthritis with rheumatoid factor, unspecified (principal)
CPT/HCPCS: 36415; 80053; 85652; 85025; 86140